=== PATIENT | female | born 1970 | race Caucasian/White ===

== ENCOUNTER 2018-03-10 11:55 | Outpatient (CLI) | payer BC, SELFPAY ==
[2018-03-10 12:00] VITALS: PULSE 62; RESP 18; TEMP 36.8; O2SAT 100
--- NOTE | 2018-03-10 12:28 | PDOC.PAIN ---
Pain Clinic Procedure Note Current Active Problems Problem Status Onset Sacroiliac joint dysfunction Acute Left Sacroiliac (SI) JOINT INJECTION KRYSTYNALOBO MARS has been referred to the [facility] for intra-articular SI joint injection. COMMENTS: I did review the note from Ms. Tabitha MARS was interviewed and the medical record reviewed. There were no medical, pharmacologic, radiographic or other structural contraindications to attempting fluoroscopically guided intra-articular SI joint injection. Risks and expected side effects as well as potential benefit of the procedure were reviewed with JERAD, and JERAD's voiced concerns addressed. The printed consent form was signed and witnessed. Standard time-out procedure was performed. JERAD was placed in the prone position on the fluoroscopy table and automated blood pressure cuff and pulse oximeter applied. The skin entry point for approaching left SI joint was identified under the most advantageous fluoroscopic view and marked. Following thorough Chlorhexadine preparation of the skin and draping and 1% lidocaine infiltration of the skin entry point and subcutaneous tissues, a 22 gauge spinal needle was placed under fluoroscopic guidance into left SI joint. Intra-articular placement was confirmed by a clear arthrogram resulting from the injection of 0.5ml Omnipaque 240 (49.5 cc Omnipaque was wasted), 1ml 1% Lidocaine, and 80mg/cc Depomedrol were injected intra-articularily with an initial reproduction of a significant component of the usual pain. HUIs vital signs were stable throughout the procedure and were as recorded in the docflowsheet by the nursing staff. Follow up plans and appointments were discussed with the JERAD. Post procedure instruction was given as documented in nursing documentation and having met discharge criteria, JERAD was discharged from the [facility]. COMMENTS: Near complete relief directly after the procedure. CC: Farnaz Kline
--- NOTE | 2018-03-10 12:34 | DI.RAD_ITS ---
SYMPTOMS/DIAGNOSIS: SACROILIAC JOINT INJECTION PAIN CLINIC SACROILIAC JOINT: Fluoroscopy Time: 20.1 sec 7.69 mGy C-arm fluoroscopy was provided for guidance with pain clinic injection. The single hard copy image shows a needle projecting over the left lower SI joint. Please see procedure note for details.
[2018-03-10 12:36] VITALS: BP 134/58; PULSE 67; RESP 17; O2SAT 100
[2018-03-10] MEDS: methylPREDNISolone ACETATE 80 MG/ML VIAL IJ (12:37)
[2018-03-10] MEDS: Omnipaque 240 MG/ML 50 ML BTL IJ (12:37)
--- NOTE | 2018-03-28 15:07 | PDOC.PAIN_ITS ---
Pain Clinic Procedure Note Current Active Problems Problem Status Onset Sacroiliac joint dysfunction Acute Left Sacroiliac (SI) JOINT INJECTION KRYSTYNALOBO MARS has been referred to the [facility] for intra- articular SI joint injection. COMMENTS: I did review the note from Ms. Tabitha MARS was interviewed and the medical record reviewed. There were no medical , pharmacologic, radiographic or other structural contraindications to attempting fluoroscopically guided intra-articular SI joint injection. Risks and expected side effects as well as potential benefit of the procedure were reviewed with JERAD, and JERAD's voiced concerns addressed. The printed consent form was signed and witnessed. Standard time-out procedure was performed. JERAD was placed in the prone position on the fluoroscopy table and automated blood pressure cuff and pulse oximeter applied. The skin entry point for approaching left SI joint was identified under the most advantageous fluoroscopic view and marked. Following thorough Chlorhexadine preparation of the skin and draping and 1% lidocaine infiltration of the skin entry point and subcutaneous tissues, a 22 gauge spinal needle was placed under fluoroscopic guidance into left SI joint. Intra-articular placement was confirmed by a clear arthrogram resulting from the injection of 0.5ml Omnipaque 240 (49.5 cc Omnipaque was wasted), 1ml 1% Lidocaine, and 80mg/cc Depomedrol were injected intra-articularily with an initial reproduction of a significant component of the usual pain. HUIs vital signs were stable throughout the procedure and were as recorded in the docflowsheet by the nursing staff. Follow up plans and appointments were discussed with the JERAD. Post procedure instruction was given as documented in nursing documentation and having met discharge criteria, JERAD was discharged from the [facility]. COMMENTS: Near complete relief directly after the procedure. CC: Farnaz Kline
== END 2018-03-10 12:15 ==
PROVIDERS: PCP Family Medicine; Visit Provider Preventive Medicine Occupational Medicine
DX: M54.5 Low back pain (principal); M53.3 Sacrococcygeal disorders, not elsewhere classified
CPT/HCPCS: 27096; 72200; J1040; Q9967

== ENCOUNTER 2018-08-08 18:45 | Outpatient (REF) | payer BC, SELFPAY ==
[2018-08-08 22:08] LABS: Bilirubin Negative (Negative); Blood Trace-intact (Negative); Clarity Clear; Glucose Negative (Negative); Ketones Negative (Negative); Leukocyte Esterase Negative (Negative); Nitrite Negative (Negative); Specific Gravity >= 1.030 (1.005-1.025); Urobilinogen 0.2 EU/dL (Up TO 0.2); pH 5.5 (5-8)
[2018-08-08 22:24] LABS: Bacteria Many HPF (Negative); C & S Indicated? Yes; Casts Negative LPF (Negative); Crystals Negative HPF (Negative); Epithelial Cells Few HPF (Negative); Mucus Negative (Negative); RBC Negative (0-2); WBC 0-2 HPF (0-5)
== END 2018-08-08 19:05 ==
LOC: NCHCN 18:45
PROVIDERS: PCP Family Medicine; Visit Provider Family Medicine
DX: R35.0 Frequency of micturition (principal)
CPT/HCPCS: 81003; 81015; 87086

== ENCOUNTER 2018-08-16 13:37 | Outpatient (CLI) | payer BC, SELFPAY ==
[2018-08-16 13:43] VITALS: BP 116/75; PULSE 72; RESP 20; TEMP 36.8; O2SAT 98
[2018-08-16] MEDS: Omnipaque 240 MG/ML 50 ML BTL IJ (14:06)
--- NOTE | 2018-08-16 14:07 | DI.RAD_ITS ---
SYMPTOMS/DIAGNOSIS: SACROILIAC JOINT DYSFUNCTION PAIN CLINIC SACROILIAC JOINT: Fluoroscopy Time: 17.4 sec 7.09 mGy Fluoroscopy was utilized by Dr. Hernández during the performance of a sacroiliac joint injection. Please refer to the procedure report for complete details.
--- NOTE | 2018-08-16 14:07 | PDOC.PAIN_ITS ---
Pain Clinic Procedure Note Current Active Problems Problem Status Onset Sacroiliac joint dysfunction Acute INTRA-ARTICULAR SI JOINT INJECTION KRYSTYNA MARS has been referred to the [facility] for intra- articular SI joint injection. COMMENTS: She had this procedure in March 2018 and had several months of excellent relief. Patient was interviewed and the medical record reviewed. There were no medical, pharmacologic, radiographic or other structural contraindications to attempting fluoroscopically guided intra-articular SI joint injection. Risks and expected side effects as well as potential benefit of the procedure were reviewed and voiced concerns addressed. The printed consent form was signed and witnessed. Standard time-out procedure was performed. Patient was placed in the prone position on the fluoroscopy table and automated blood pressure cuff and pulse oximeter applied. The skin entry point for approaching left SI joint was identified under the most advantageous fluoroscopic view and marked. Following thorough Chlorhexadine preparation of the skin and draping and 1% lidocaine infiltration of the skin entry point and subcutaneous tissues, a 22 gauge spinal needle was placed under fluoroscopic guidance into left SI joint was identified under the most advantageous fluoroscopic view and marked. Following thorough Chlorhexadine preparation of the skin and draping and 1% lidocaine infiltration of the skin entry point and subcutaneous tissues, a 22 gauge spinal needle was placed under fluoroscopic guidance into left SI joint. Intra-articular placement was confirmed by a clear arthrogram resulting from the injection of 0.25ml Omnipaque 240, 1ml 1% lidocaine, and 80mg Depomedrol were injected intra-articularily with an initial reproduction of a significant component of the usual pain. Vital signs were stable throughout the procedure and were as recorded in the docflowsheet by the nursing staff. If given, dosages of intravenous drugs for anxiolysis and analgesia were documented in MAR. Follow up plans and appointments were discussed with the patient. Post procedure instruction was given as documented in nursing documentation and having met discharge criteria, and was discharged from the [facility]. COMMENTS: If this procedure continues to be effective, it can be completed up to 3 times per 12 months. CC: Farnaz Kline
[2018-08-16] MEDS: methylPREDNISolone ACETATE 80 MG/ML VIAL IM (14:15)
[2018-08-16 14:16] VITALS: BP 133/77; PULSE 75; RESP 20; O2SAT 100
== END 2018-08-16 13:57 ==
PROVIDERS: PCP Family Medicine; Visit Provider Preventive Medicine Occupational Medicine
DX: M54.5 Low back pain (principal); M53.3 Sacrococcygeal disorders, not elsewhere classified
CPT/HCPCS: 27096; 72200; J1040; Q9967

== ENCOUNTER 2018-08-23 00:17 | Outpatient (CLI) | payer BC, SELFPAY ==
--- NOTE | 2018-08-23 16:22 | DI.MAMMO_ITS ---
SYMPTOMS/DIAGNOSIS: SCREENING, Z12.31 MAMMOGRAM: Mammograms were interpreted according to the usual protocol including computer analysis with CAD system, tomosynthesis and C view imaging. Comparison with prior examinations. Breast density B. No suspicious masses or microcalcifications are seen. There is increased asymmetric dense tissue in the upper left breast seen on the mediolateral oblique view. This may represent normal fibroglandular tissue but a spot compression is recommended. Ultrasound may be indicated at that time. IMPRESSION: Additional views of the left breast as described above. Category O. MQSA ASSESSMENT OF FINDINGS: Incomplete: Needs additional imaging evaluation. Category 0. Patient will receive a letter notifying them of these results. BI-RADS category B. There are scattered areas of fibroglandular density.
== END 2018-08-23 00:37 ==
PROVIDERS: PCP Family Medicine; Visit Provider Family Medicine
DX: Z12.31 Encounter for screening mammogram for malignant neoplasm of breast (principal); R92.8 Other abnormal and inconclusive findings on diagnostic imaging of breast
CPT/HCPCS: 77063; 77067

== ENCOUNTER 2018-09-01 00:56 | Outpatient (CLI) | payer BC, SELFPAY ==
--- NOTE | 2018-09-01 10:52 | DI.MAMMO_ITS ---
SYMPTOMS/DIAGNOSIS: F/U MAMMO, INCREASED ASYMMETRIC DENSE TISSUE LT BREAST ADDITIONAL VIEW OF THE LEFT BREAST: Additional images are interpreted according to the usual protocol including tomosynthesis and 2D imaging. An MLO spot compression view of the superior left breast was performed for questioned asymmetry. No persistent abnormality or change is seen. The findings are consistent with overlying fibroglandular tissue. IMPRESSION: Category I, negative mammogram. Yearly screening mammography is recommended. Breast density Category B. MQSA ASSESSMENT OF FINDINGS: Negative. Category 1. Patient will receive a letter notifying them of these results. BI-RADS category B. There are scattered areas of fibroglandular density.
== END 2018-09-01 01:16 ==
PROVIDERS: PCP Family Medicine; Visit Provider Family Medicine
DX: Z12.31 Encounter for screening mammogram for malignant neoplasm of breast (principal); R92.8 Other abnormal and inconclusive findings on diagnostic imaging of breast; N64.59 Other signs and symptoms in breast
CPT/HCPCS: 77063; 77067

== ENCOUNTER 2018-11-07 18:52 | Outpatient (REF) | payer BC, SELFPAY ==
[2018-11-07 18:37] LABS: Bilirubin Negative (Negative); Blood Negative (Negative); Clarity Clear; Glucose Negative (Negative); Ketones Negative (Negative); Leukocyte Esterase Negative (Negative); Nitrite Negative (Negative); Specific Gravity >= 1.030 (1.005-1.025); Urobilinogen 0.2 EU/dL (Up TO 0.2); pH 5.5 (5-8)
== END 2018-11-07 19:12 ==
LOC: NCHCN 18:52
PROVIDERS: PCP Family Medicine; Visit Provider Family Medicine
DX: R32 Unspecified urinary incontinence (principal)
CPT/HCPCS: 81003

== ENCOUNTER 2018-12-19 09:00 | Day surgery (SDC) | payer BC, SELFPAY ==
--- NOTE | 2018-12-19 06:47 | COLE_ITS ---
Date of service: 12/19/18 Time of Service: 10:43 Colonoscopy Report Date of procedure: 12/19/18 Pre-op diagnosis general: Colon Cancer Screening Post-op diagnosis procedure note: same Procedure: Colonoscopy Surgeon: Rand Rodírguez Anesthesia proc note operative: other (General/ ASA 2/Elsa Bass, ARIELA ) Estimated blood loss (mL): 0 Pathology: none sent Complications: None Disposition: same day Indications: Mrs. Taylor is a pleasant 48 year old female seen in the office for a screening colonoscopy. Risks, benefits and complications have been reviewed. Complications include but are not limited to bleeding, pain, pe rforation, missed small lesion/polyp, sore throat, aspiration and adverse reaction to the medications. Questions were entertained and answered to their satisfaction and they wished to proceed. No guarantees were given or implied. Prep: Miralax/Dulcolax Procedure Start Time: :43 Procedure End Time: 11:01 Retraction Time: 13 minutes Findings: Normal colon Procedure Description: After informed consent was obtained the patient was taken to the procedure room and placed in a left decubitous position. Monitors were applied and a time out was done. The patients name, date of , procedure, allergies to medications and metal in their body was reviewed. The patient was then sedated. Once sedated and comfortable a rectal exam was done. External exam was normal. Internal exam revealed a normal sphincter tone and no palpable masses. The scope was then introduced and retro-flexed. No internal hemorrhoids were identified. The scope was then advanced to the cecum without difficulty. The TI and appendiceal orifice were identified. The prep was good. The scope was then slowly retracted over 13 minutes back into the rectum. There were no polyps or diverticula noted. The scope was removed and the patient was woken up and taken back to Same day surgery in stable condition. The patient tolerated the procedure well and there were no immediate complications. Follow up: The patient should follow up in 10 years unless they develop changes in bowel habits or other new gastrointestinal complaints.
--- NOTE | 2018-12-19 06:47 | W.PM.DSUDISC ---
Discharge Plan Disposition Patient Disposition: HOME Condition: Good Discharge Details Reason For Visit: Colonoscopy Attending Provider: Rand Rodríguez Primary Care Provider: Farnaz Kline Home Meds and New Rx's Prescriptions: Continued valacyclovir [Valtrex] 1,000 MG tablet 1,000 mg PO DAILY RF: 0 metronidazole 45 GM cream 45 gm Topical BID RF: 0 prochlorperazine maleate 5 MG tablet 5 mg PO TID PRNRF: 0 naproxen sodium [Aleve] 220 MG capsule 220 mg PO DAILY PRNRF: 0 sumatriptan succinate [Imitrex] 50 MG tablet 100 mg PO PRN PRNRF: 0 spironolactone 25 MG tablet 25 mg PO DAILY RF: 0 Discontinued polyethylene glycol 3350 17 gram/dose powder 238 g PO ONCE Qty: 238 RF: 0 bisacodyl [Dulcolax (bisacodyl)] 5 mg tablet,delayed release (DR/EC) 5 mg PO ONCE Qty: 4 RF: 0 Discharge Instructions Instructions: Colonoscopy (DC) Additional Instructions: Findings: Normal colonoscopy Follow up: 10 years Please call if you develop: fevers >101.5 Nausea or Vomiting Abdominal pain that is not transient DAY SURGERY UNIT POST COLONOSCOPY INSTRUCTIONS 1. Because there will be medication in your system for the next 24 hours, you may feel a little sleepy. Your coordination will be affected. Therefore: a. Do not drive or operate dangerous equipment for 24 hours. b. Do not drink alcohol beverages for 24 hours (not even beer). c. Plan to go home and rest for the day. 2. Generally there are no restrictions on your activity after a day or so has gone by, but you may feel a bit fatigued for a few days. 3 After you arrive home you may have a light meal and return to a normal diet as you can tolerate it without feeling sick to your stomach. 4. After surgery, you may feel pain or discomfort. This should be only transient, but if it persists please contact your doctor. 5. If there are any questions regarding the findings of your procedure, please feel free to contact your doctor. 6. If you are unable to contact your doctor with a problem, contact the hospital at [phone]. 7. Continue all your regular medications unless directed otherwise. I understand the above instructions and have no questions. Signature of Patient or Responsible Adult Escort Date/Time Name of Responsible Adult Escort Signature of Nurse Date/Time Activity:: Activity as Tolerated Diet:: As Tolerated Discharge Orders Discharge Orders: Discharge Order (Routine); Ordered 12/19/18 Ordered By: Rand Rodríguez DS: Diagnosis Discharge Diagnosis (1) S/P colonoscopy: Status: Acute
[2018-12-19 09:15] VITALS: BP 123/73; PULSE 72; RESP 16; TEMP 37; O2SAT 99
[2018-12-19] MEDS: Lactated Ringers 1,000 ML 80 ML IV (09:23)
[2018-12-19 11:45] VITALS: BP 134/62; PULSE 48; RESP 16; TEMP 35.9; O2SAT 99
== END 2018-12-19 11:53 | disposition home or self-care (01) ==
LOC: SUR 09:00
PROVIDERS: PCP Family Medicine; Visit Provider Surgery
PROC: 0DJD8ZZ Inspection of Lower Intestinal Tract, Via Natural or Artificial Opening Endoscopic (ICD-10-PCS; CPT 45378; principal; 2018-12-19 10:00)
DX: Z12.11 Encounter for screening for malignant neoplasm of colon (principal)
CPT/HCPCS: 45378

== ENCOUNTER 2019-04-19 11:10 | Outpatient (CLI) | payer BC, SELFPAY ==
--- NOTE | 2019-04-19 15:00 | DI.RAD_ITS ---
EXAM: XR RIBS RT W PA AND LAT CHEST INDICATION: RIB PAIN RT SIDED, R07.81, PAIN LOWER RT RIB CAGE. COMPARISON: ABD FLAT UPRIGHT PA CHEST from 03/11/2015 TECHNIQUE: 2D digital imaging was performed. FINDINGS: The heart size is normal. The lungs are clear. No pneumothorax is seen. Two views of the ribs wer e performed. No fracture or gross destructive bony lesion is seen. IMPRESSION: Negative chest and right ribs.
== END 2019-04-19 11:30 ==
PROVIDERS: PCP Family Medicine; Visit Provider Family Medicine
DX: R07.81 Pleurodynia (principal)
CPT/HCPCS: 71046; 71100

== ENCOUNTER 2019-05-11 02:56 | Outpatient (CLI) | payer BC, SELFPAY ==
--- NOTE | 2019-05-11 15:45 | DI.US_ITS ---
EXAM: US SOFT TISS ABD WALL/LOW BACK CLINICAL HISTORY: RIB PAIN, RT SIDED R07.81, PAIN AND PALPABLE LUMP OVER RT LATERAL RIB CAGE TECHNIQUE: Ultrasound performed using standard protocol. COMPARISON: PELVIS TRANSVAG from 07/12/2017 FINDINGS: Soft tissue ultrasound was performed to evaluate question of palpable abnormality over the right late ral thoracoabdominal junction. No mass identified. If there is a high clinical suspicion of a mass additional evaluation with CT or MRI may be considered. IMPRESSION:
== END 2019-05-11 03:16 ==
PROVIDERS: PCP Family Medicine; Visit Provider Family Medicine
DX: R07.81 Pleurodynia (principal); R22.2 Localized swelling, mass and lump, trunk
CPT/HCPCS: 76705

== ENCOUNTER 2019-05-11 12:24 | Outpatient (CLI) | payer BC, SELFPAY ==
--- NOTE | 2019-05-11 06:00 | DI.RAD_ITS ---
EXAM: XR PAIN CLINIC SACRIOILIAC 2V CLINICAL HISTORY: Dx: Sacroiliac Joint Dysfunction TECHNIQUE: C-arm fluoroscopy utilized by Dr. Pollard during SI joint injection. COMPARISON: No exams were available for comparison FINDINGS: Hard copy shows needle overlying the SI joint, not marked for laterality. FLUORO TIME: 23.7 seconds IMPRESSION:
--- NOTE | 2019-05-11 12:27 | PDOC.PAIN_ITS ---
Pain Clinic Procedure Note Procedure Note Procedure Note: INTRA-ARTICULAR SI JOINT INJECTION Date of Service: May 11, 2019 Patient: KRYSTYNA DAVIS Provider: Marcos Pollard MD COMMENTS: previously responded well to SI joint injections. Pre-operative diagnosis: disorder of sacrum Post-operative diagnosis: same as above KRYSTYNA DAVIS has been referred to the [facility] for intra- articular SI joint injection. Ms Davis was interviewed and the medical record reviewed. There were no medical, pharmacologic, radiographic or other structural contraindications to attempting fluoroscopically guided intra-articular SI joint injection. Risks and expected side effects as well as potential benefit of the procedure were reviewed with KRYSTYNA , and her voiced concerns were addressed. The printed consent form was signed and witnessed. Standard time-out procedure was performed. KRYSTYNA was placed in the prone position on the fluoroscopy table and automated blood pressure cuff and pulse oximeter applied. The skin entry point for approaching the left sacroiliac joint was identified under the most advantageous fluoroscopic view and marked. Following thorough Chlorhexadine preparation of the skin and draping and 1% lidocaine infiltration of the skin entry point and subcutaneous tissues, a 22 gauge spinal needle was placed under fluoroscopic guidance into the left sacroiliac joint. Intra-articular placement was confirmed by a clear arthrogram resulting from the injection of 0.25ml Omnipaque 240. 1 ml 1% Lidocaine and 80mg Depomedrol was injected intra- articularily with an initial reproduction of a significant component of the usual pain. The needle was flushed with 0.5 cc of 1% Lidocaine and removed without difficulty. (49 cc of Omnipaque was wasted) KRYSTYNA lyons vital signs were stable throughout the procedure and were as recorded in the docflowsheet by the nursing staff. If given, dosages of intravenous drugs for anxiolysis and analgesia were documented in MAR. Follow up plans and appointments were discussed with the KRYSTYNA . Post procedure instruction was given as documented in nursing documentation and having met discharge criteria, KRYSTYNA was discharged from the [facility]. COMMENTS: No complications. F/U with Stefania Ramsey on prn basis. I personally performed this entire procedure. Marcos Pollard MD ABPN-subspecialty board certification in Pain Medicine Attending Physician-Pain Management
[2019-05-11 12:28] VITALS: BP 112/55; PULSE 82; RESP 16; TEMP 36.8; O2SAT 99
[2019-05-11 13:08] VITALS: BP 104/60; PULSE 71; RESP 16; O2SAT 100
[2019-05-11] MEDS: Omnipaque 240 MG/ML 50 ML BTL IJ (13:09)
[2019-05-11] MEDS: methylPREDNISolone ACETATE 80 MG/ML VIAL IJ (13:11)
== END 2019-05-11 12:44 ==
PROVIDERS: PCP Family Medicine; Visit Provider Internal Medicine
DX: M54.5 Low back pain (principal); M53.3 Sacrococcygeal disorders, not elsewhere classified
CPT/HCPCS: 27096; 72200; J1040; Q9967

== ENCOUNTER 2019-08-09 10:08 | Outpatient (CLI) | payer BC, SELFPAY ==
[2019-08-09 10:39] VITALS: BP 101/68; PULSE 50; RESP 16; TEMP 37.1; O2SAT 97
--- NOTE | 2019-08-09 10:39 | PDOC.PAIN_ITS ---
Pain Clinic Procedure Note Procedure Note Procedure Note: INTRA-ARTICULAR SI JOINT INJECTION KRYSTYNA MARS has been referred to the [facility] for intra- articular SI joint injection. pre-operative diagnosis: disorder of sacrum post-operative diagnosis: same as above COMMENTS: patient has received excellent pain relief from prior left SI joint injections, she has since developed right sided symptoms and was evaluated by Ms Lu in our pain clinic who recommended a trial of right SI joint injection. Patient was interviewed and the medical record reviewed. There were no medical, pharmacologic, radiographic or other structural contraindications to attempting fluoroscopically guided intra-articular SI joint injection. Risks and expected side effects as well as potential benefit of the procedure were reviewed and voiced concerns addressed. The printed consent form was signed and witnessed. Standard time-out procedure was performed. Patient was placed in the prone position on the fluoroscopy table and automated blood pressure cuff and pulse oximeter applied. The skin entry point for approaching right SI joints was identified under the most advantageous fluoroscopic view and marked. Following thorough Chlorhexadine preparation of the skin and draping and 1% lidocaine infiltration of the skin entry point and subcutaneous tissues, a 22 gauge spinal needle was placed under fluoroscopic guidance into right SI joints was identified under the most advantageous fluoroscopic view and marked. Following thorough Chlorhexadine preparation of the skin and draping and 1% lidocaine infiltration of the skin entry point and subcutaneous tissues, a 22 gauge 3.5'' spinal needle was placed under fluoroscopic guidance into right SI joint. Intra-articular placement was confirmed by a clear arthrogram resulting from the injection of 0.25ml Omnipaque 240, 1ml 1% lidocaine, and 40mg Depomedrol were injected intra-articularily with an initial reproduction of a significant component of the usual pain. Vital signs were stable throughout the procedure and were as recorded in the docflowsheet by the nursing staff. Follow up plans and appointments were discussed with the patient. Post procedure instruction was given as documented in nursing documentation and having met discharge criteria, and was discharged from the [facility]. COMMENTS: initially SI joint visualized using 5 degree cephalad tilt and 10 degree contralateral oblique, however, needle was difficult to enter SI joint, then an ipsilateral oblique of 7 degrees with same degree of cephalad tilt allowed for medial (posterior) aspect of right SI joint and needle entered joint space without issue. patient reported usual reproduction of her right sided low back pain as medicine was injected. I performed the entire procedure. Marcos Pollard Pain Management CC: Farnaz Kline
--- NOTE | 2019-08-09 11:08 | DI.RAD_ITS ---
EXAM: XR PAIN CLINIC SACRIOILIAC 2V CLINICAL HISTORY: Dx: Sacroiliac Joint Dysfunction. SACROILIAC JOINT INJECTION TECHNIQUE: Realtime digital imaging was performed. CONTRAST MATERIAL: Water soluble contrast was administered. COMPARISON: No exams were available for comparison FINDINGS: Fluoroscopy was utilized by Dr. Pollard during the performance of a right sacroiliac joint injection. Ple ase refer to the procedure report for complete details. Fluoro time: 44.9 seconds
[2019-08-09 11:12] VITALS: BP 109/80; PULSE 51; RESP 19; O2SAT 100
[2019-08-09] MEDS: Omnipaque 240 MG/ML 50 ML BTL IJ (11:13)
[2019-08-09] MEDS: methylPREDNISolone ACETATE 40 MG/ML VIAL IJ (11:14)
== END 2019-08-09 10:28 ==
PROVIDERS: PCP Family Medicine; Visit Provider Internal Medicine
DX: M54.5 Low back pain (principal); M53.3 Sacrococcygeal disorders, not elsewhere classified
CPT/HCPCS: 27096; 72200; J1030; Q9967

== ENCOUNTER 2019-09-12 00:49 | Outpatient (CLI) | payer BC, SELFPAY ==
--- NOTE | 2019-09-12 | DI.MAMMO_ITS ---
EXAM: MAMMO SCREENING CLINICAL HISTORY: SCREENING, Z12.31 TECHNIQUE: Mammograms were interpreted according to the usual protocol including computer analysis w ith CAD system, tomosynthesis and C-view imaging. COMPARISON: 2010 through 2018 FINDINGS: The breasts are composed of scattered fibroglandular densities, Breast Density category B. No suspicious masses or suspicious microcalcifications are seen. No skin thickening or abnormal axillary lymph nodes are seen. There has been no significant change from prior exams. IMPRESSION: BI-RADS category 1, yearly screening mammography is recommended. Breast density category B, scattered fibroglandular densities.
== END 2019-09-12 01:09 ==
PROVIDERS: PCP Family Medicine; Visit Provider Family Medicine
DX: Z12.31 Encounter for screening mammogram for malignant neoplasm of breast (principal)
CPT/HCPCS: 77063; 77067

== ENCOUNTER 2020-01-12 18:29 | Outpatient (REF) | payer BC, SELFPAY ==
[2020-01-12 18:08] LABS: Bilirubin Negative (Negative); Blood Small (Negative); Clarity Cloudy (Clear); Glucose Negative (Negative); Ketones Trace mg/dL (Negative); Leukocyte Esterase Small (Negative); Nitrite Negative (Negative); Specific Gravity >= 1.030 (1.005-1.025); Urobilinogen 0.2 EU/dL (Up TO 0.2)
[2020-01-12 20:23] LABS: Bacteria Many HPF (Negative); C & S Indicated? Yes; Casts Negative LPF (Negative); Crystals Negative HPF (Negative); Epithelial Cells Few HPF (Negative); Mucus Negative (Negative); Other Cells Negative (Negative); WBC 20-50 HPF (0-5)
== END 2020-01-12 18:49 ==
LOC: NCHCN 18:29
PROVIDERS: PCP Family Medicine; Visit Provider Family Medicine
DX: R30.0 Dysuria (principal)
CPT/HCPCS: 87077; 81003; 81015; 87086; 87186

== ENCOUNTER 2020-01-24 21:35 | Outpatient (REF) | payer BC, SELFPAY ==
[2020-01-24 20:53] LABS: Bilirubin Negative (Negative); Blood Negative (Negative); Clarity Clear (Clear); Glucose Negative (Negative); Ketones Negative (Negative); Leukocyte Esterase Negative (Negative); Nitrite Negative (Negative); Specific Gravity 1.025 (1.005-1.025); Urobilinogen 0.2 EU/dL (Up TO 0.2)
== END 2020-01-24 21:55 ==
LOC: NCHCN 21:35
PROVIDERS: Family Medicine; PCP Family Medicine; Visit Provider Family Medicine
DX: N39.0 Urinary tract infection, site not specified (principal); R30.0 Dysuria
CPT/HCPCS: 81003; 87086

== ENCOUNTER 2020-04-08 18:28 | Outpatient (REF) | payer BC, SELFPAY ==
[2020-04-10 15:15] LABS: Chlamydia Result Negative (Negative); GC Result Negative (Negative)
== END 2020-04-08 18:48 ==
LOC: NCHCN 18:28
PROVIDERS: PCP Family Medicine; Visit Provider Family Medicine
DX: R30.0 Dysuria (principal)
CPT/HCPCS: 87491; 87591; 87086

== ENCOUNTER 2020-08-28 21:05 | Outpatient (REF) | payer BC, SELFPAY ==
[2020-08-28 16:15] LABS: Hemoglobin A1C 5.7 % (<5.7)
== END 2020-08-28 21:06 | disposition home or self-care (01) ==
LOC: NCHCN 21:05
PROVIDERS: PCP Family Medicine; Visit Provider Family Medicine
DX: Z13.1 Encounter for screening for diabetes mellitus (principal)
CPT/HCPCS: 82947; 83036

== ENCOUNTER 2020-09-16 01:04 | Outpatient (CLI) | payer BC, SELFPAY ==
--- NOTE | 2020-09-16 | DI.MAMMO_ITS ---
EXAM: MG MAMMO SCREENING CLINICAL HISTORY: SCREENING, Z12.31. TECHNIQUE: Bilateral full field digital CC and MLO mammographic images were obtained with 3D tomosyn thesis and utilizing computer aided detection (CAD). COMPARISON: Prior mammograms dating back to 2010, the most recent being September 2019. FINDINGS: There are no spiculated masses nor malignant appearing microcalcification groups. Asymmetric density medially in the right breast is unchanged from prior studies. There is no significant architectural distortion nor skin thickening-retraction. IMPRESSION: Stable benign findings. No radiographic evidence of malignancy. BI-RADS Category 2 - Benign Findings Breast Density - Category B - Scattered areas of fibroglandular density Breast density Category C or D implies that the patient has dense breast tissue. Dense breast tissue can make it harder to find cancer on a mammogram. Dense breast tissue is also associated with an incr eased risk of breast cancer. This information about the result of the mammogram report was provided to the patient to raise their awareness. Use this report when you speak with the patient about their risks for breast cancer, which includes their family history. At that time, you may recommend additional screening tests (Ultrasoun d or MRI) as these tests may add significant information. A negative radiographic report should not delay biopsy if a dominant or clinically suspicious mass is present. Up to ten percent of cancers are not identified on mammography. A negative report may reinforce clinical impression. Adenosis and dense breasts may obscure an underlying neoplasm. False positive reports average 6 to 10%. Patient will receive a letter notifying them of these results.
== END 2020-09-16 01:24 ==
PROVIDERS: PCP Family Medicine; Visit Provider Family Medicine
DX: Z12.31 Encounter for screening mammogram for malignant neoplasm of breast (principal)
CPT/HCPCS: 77063; 77067

== ENCOUNTER 2020-10-22 23:23 | Outpatient (REF) | payer BC, SELFPAY | END 2020-10-22 23:24 | disposition home or self-care (01) | LOC: NCHCN 23:23 | PROVIDERS: PCP Family Medicine; Visit Provider Family Medicine | DX: N39.0 Urinary tract infection, site not specified (principal) | CPT/HCPCS: 87086 ==

== ENCOUNTER 2021-03-11 15:10 | Outpatient (REF) | payer BC, SELFPAY ==
[2021-03-11 19:09] LABS: Hemoglobin A1C 5.6 % (<5.7)
[2021-03-11 19:19] LABS: Anion Gap 6.4 mmol/L (3-11); BUN 16 mg/dL (7-18); CO2 28.6 mmol/L (21.0-32.0); CREATININE 0.8 mg/dL (0.55-1.02); Chloride 107 mmol/L (98-107); Glucose 78 mg/dL (74-106); Potassium 4.4 mmol/L (3.5-5.1); Sodium 142 mmol/L (136-145)
== END 2021-03-11 15:11 | disposition home or self-care (01) ==
LOC: NCHCN 15:10
PROVIDERS: PCP Family Medicine; Visit Provider Family Medicine
DX: R73.03 Prediabetes (principal)
CPT/HCPCS: 80048; 83036

== ENCOUNTER 2021-08-08 15:22 | Outpatient (REF) | payer BC, SELFPAY ==
[2021-08-11 13:59] LABS: Chlamydia Result Negative (Negative); GC Result Negative (Negative)
== END 2021-08-08 15:23 | disposition home or self-care (01) ==
LOC: LBN 15:22
PROVIDERS: PCP Family Medicine; Visit Provider Physician Assistant Medical
DX: L29.2 Pruritus vulvae (principal); N89.8 Other specified noninflammatory disorders of vagina; R30.0 Dysuria
CPT/HCPCS: 87077; 87491; 87591; 87086; 87186; 87480; 87510; 87660

== ENCOUNTER 2021-09-03 01:20 | Outpatient (CLI) | payer BC, SELFPAY ==
[2021-09-03 12:07] LABS: Source Nasal/Nares
[2021-09-03 14:31] LABS: COVID-19 PCR Negative (Negative)
--- NOTE | 2021-09-04 19:50 | W.PM.HP.N ---
History of Present Illness History of Present Illness Chief Complaint: Symptomatic right bunion and hammertoe deformities. Narrative: Progressive deformities intrfering with shoe gear, work and daily activities. Non-surgical treatments have failed to provide adequate relief of symptoms. 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 denies this states she does however had cold sores Hip joint pain Hx of cold sores Hx of ovarian cyst Migraines Pain of both breasts Right shoulder pain Rosacea Sacroiliac joint pain Sciatica Urinary frequency Varicose veins of both lower extremities Surgical History Ligation of fallopian tube (09/15/17) Bilateral salpingectomy - risk reduction surgery. Oophrectomy, Left (09/15/17) L ovarian cysts. Family History Other Diabetes Heart disease Social History Smoking/Tobacco Use Status: Never Smoking risk assessment performed?: Yes Alcohol Intake: current Alcohol Intake frequency: holidays/special occasions only Drug use: Never Substance use type: does not use Do you feel safe at home: Yes Do you feel safe in your relationship?: Yes Meds Allergies and Home Medications Allergies Allergy/AdvReac Type Severity Reaction Status Date / Time codeine Allergy Severe Nausea and Verified 09/03/21 10:54 vomiting erythromycin base Allergy Severe rash, hives Verified 09/03/21 10:54 Penicillins Allergy Skin Rash Verified 09/03/21 10:54 Sulfa (Sulfonamide Allergy Skin Rash Verified 09/03/21 10:54 Antibiotics) Home Medications Medication Instructions Recorded Confirmed Type valacyclovir 1 gram tablet 1,000 mg PO DAILY tab-cap 05/14/17 09/03/21 History (Valtrex) naproxen sodium 220 mg capsule 220 mg PO DAILY PRN 02/14/18 09/03/21 History (Aleve) nadolol 40 mg tablet 40 mg PO DAILY 04/09/20 09/03/21 History sumatriptan succinate 100 mg tablet See Rx Instructions PO .COMPLEX 04/09/20 09/03/21 History spironolactone 100 mg tablet 100 mg PO DAILY 05/09/20 09/03/21 History solifenacin 10 mg tablet (Vesicare) 10 mg PO DAILY #90 tab 06/05/20 09/03/21 Rx Exam Narrative Exam Narrative: Heads Normo cephalic Eyes PERRLA Hearing is adequate Heart had RRR, no murmur, gallop or rubs Lung correa are clear Abdomen is soft, BS x 4 Peripheral pulses are -2/4, CFT < 3 sec, No edema Muscle groups are 5/5 Skeletal exam is remarkable for moderate bunion deformity right foot, hammertoes 4th and 5th digits Neuro exam WNL Impressions: HAV right Hammetoe deformites 4 and 5 right Plan: Jocelyn is being brought to the OR for surgical repair of her bunion and hammertoe deformities. She understands the risks and complications including the potential for pain, scarring, infection, over or under correction of the deformities,non-union, mal union, delayed union of the osteotomy. All questions have been answered in detail. No promises made as to the final outcome of surgery. Informed consent obtained.
== END 2021-09-03 01:21 | disposition home or self-care (01) ==
LOC: LBO 01:20
PROVIDERS: PCP Family Medicine; Visit Provider Podiatrist
DX: M53.3 Sacrococcygeal disorders, not elsewhere classified (principal); Z20.822 Contact with and (suspected) exposure to COVID-19
CPT/HCPCS: 87635

== ENCOUNTER 2021-09-05 07:10 | Day surgery (SDC) | payer BC, SELFPAY ==
[2021-09-05 07:32] VITALS: BP 129/73; PULSE 58; RESP 18; TEMP 36.4; O2SAT 99
[2021-09-05] MEDS: CLINDAMYCIN 600 MG/50 ML BAG 100 MG IVPB (08:08)
[2021-09-05] MEDS: Lactated Ringers 1,000 ML 80 ML IV (08:36)
--- NOTE | 2021-09-05 08:48 | W.ANESPRE ---
General Info Date of Service Date Performed: 09/05/21 Height: 5 ft 2 in Weight: 86.6 kg Body Mass Index (BMI): 34.9 Surgical Procedure: Operation Date: 09/05/21 08:40 Proposed Procedure Side Surgeon p Bunionectomy w/Osteotomy,Arthroplasty Rt 4,5 Toe Right Sulaiman Matilde Gagnon DPM Meds Allergies and Home Medications Allergies Allergy/AdvReac Type Severity Reaction Status Date / Time erythromycin base Allergy Severe rash, hives Verified 09/05/21 07:45 Penicillins Allergy Skin Rash Verified 09/05/21 07:45 Sulfa (Sulfonamide Allergy Skin Rash Verified 09/05/21 07:45 Antibiotics) codeine AdvReac Severe Nausea and Verified 09/05/21 07:57 vomiting Home Medication Medication Instructions Recorded valacyclovir 1 gram tablet 1,000 mg PO DAILY tab-cap 05/14/17 (Valtrex) naproxen sodium 220 mg capsule 220 mg PO DAILY PRN 02/14/18 (Aleve) nadolol 40 mg tablet 40 mg PO DAILY 04/09/20 sumatriptan succinate 100 mg tablet See Rx Instructions PO .COMPLEX 04/09/20 spironolactone 100 mg tablet 100 mg PO DAILY 05/09/20 solifenacin 10 mg tablet (Vesicare) 10 mg PO DAILY #90 tab 06/05/20 biotin 10,000 mcg capsule 10,000 mcg PO DAILY 09/05/21 magnesium tab PO DAILY 09/05/21 riboflavin (vitamin B2) 100 mg 400 mg PO DAILY 09/05/21 tablet (Vitamin B-2) Current Visit Medications: Current Medications Generic Name Dose Route Start Last Admin Trade Name Armen PRN Reason Stop Dose Admin Sodium Chloride 500 mls @ 0 mls/hr 09/05/21 06:00 Saline 500ml Bag IV PRN PRN As Directed Clindamycin Phosphate/Dextrose 600 mg in 50 mls @ 100 mls/hr 09/05/21 06:00 09/05/21 08:08 Cleocin In D5w IVPB 100 mls/hr PREOP ELENA Administration Ringer's Solution 1,000 mls @ 80 mls/hr 09/05/21 06:00 09/05/21 08:36 IV 10/02/21 23:59 80 mls/hr INFUSION ELENA Administration IV Miscellaneous Supplies 1 each 09/05/21 06:00 Iv Access IV 10/02/21 23:59 DIRECTED ELENA Povidone Iodine 0 ml 09/05/21 06:00 Povidone-Iodine Soln. 118 Ml Btl TP DIRECTED ELENA Sodium Chloride 0 ml 09/05/21 06:00 Normal Saline Flush 10 Ml Syr IV 10/02/21 23:59 PRN PRN Sodium Chloride 0 ml 09/05/21 06:00 Normal Saline 10 Ml Vial IJ 10/02/21 23:59 DIRECTED PRN Sterile Water 0 ml 09/05/21 06:00 Water,Injection,Sterile 10 Ml Vial IJ 10/02/21 23:59 DIRECTED PRN PFSH Active Problems Active Problems: Problem Status Onset Code Spondylosis of lumbar region without myelopathy or radiculopathy M47.816 Sacroiliac joint dysfunction M53.3 S/P colonoscopy ~12/19/18 Z98.890 Mixed stress and urge urinary incontinence N39.46 Medical History Medical History Abnormal brain MRI Acne Flushing Genital herpes Pt. denies this states she does however had cold sores Hip joint pain Hx of cold sores Hx of ovarian cyst Migraines Pain of both breasts Right shoulder pain Rosacea Sacroiliac joint pain Sciatica Urinary frequency Varicose veins of both lower extremities Medical History Comments:: pt reports anesthesia made her feel Nauseous after R ECTR 6 years ago. Has had recent surgeries with no Anesthesia effect post surgery. Surgical History Surgical History (Updated 09/05/21 @ 07:45 by Chika Hanks RN) History of carpal tunnel repair History of carpal tunnel surgery of right wrist Hx of section Ligation of fallopian tube (09/15/17) Bilateral salpingectomy - risk reduction surgery. Oophrectomy, Left (09/15/17) L ovarian cysts. Tobacco Smoking/Tobacco Use Status: Never Alcohol Alcohol Intake: current Alcohol intake frequency: holidays/special occasions only Substance Use Substance use: Never Substance use type: does not use Vital Signs and Lab Results Vital Signs Most Recent Vital Signs in EMR: Most Recent Vital Signs Temp Pulse Resp BP Pulse Ox 36.4 C L 58 L 18 129/73 99 09/05/21 07:32 09/05/21 07:32 09/05/21 07:32 09/05/21 07:32 09/05/21 07:32 Lab Results Blood Type / Crossmatch: No Data to Display Complete Blood Count: No Data to Display Complete Metabolic Panel: No Data to Display Liver Function Panel: No Data to Display Coagulation Panel: No Data to Display Cardiac Panel: No Data to Display Arterial Blood Gas: No Data to Display Venous Blood Gas: No Data to Display Pancreas Panel: No Data to Display Thyroid Panel: No Data to Display Infectious Disease: Coronavirus (COVID-19)(PCR) Negative (Negative) 09/03/21 09:52 09/03/21 Coronavirus 2019 Source Nasal/Nares 09/03/21 09:52 09/03/21 Neisseria gonorrhoeae DNA Probe Negative (Negative) 08/08/21 12:34 08/08/21 Blood Cultures: No Data to Display Toxicology Panel: No Data to Display Panel: No Data to Display Anesthesia Assessment and Plan Anesthesia History Personal History: PONV Family History: No Family History of Anesthesia Complications Exercise Tolerance Exercise Tolerance: Metabolic Equivalents>4 Pertinent Negatives Pertinent Negatives: No Symptoms of GERD, No Major Cardiovascular Symptoms or Complaints, No Major Pulmonary Symptoms or Complaints and No History of CVA/TIA Cardiac & Pulmonary Exam Cardiac Exam: Normal S1/S2 Heart Sounds Pulmonary Exam: Clear Bilateral Breath Sounds Implantable Cardiac Device Does patient have a Pacemaker or an ICD?: No Airway Exam Known Difficult Airway: No Mallampati Class: 1 Mouth Opening: Normal (> 3cm) Thyromental Distance: Greater than 3 cm Neck Range of Motion: Full ROM Neck Circumference: Normal Teeth Condition: Normal Dentition ASA Classification ASA Score: ASA 2 Emergency Case?: No NPO Status NPO Status: NPO Clears >2 hours, Solids >8 hours Status Status: Not Relevant due to Medical History and Not Per Patient Anesthesia Plan Resuscitation Status: Full Code Anesthesia Technique: General Anesthesia Airway Planned: Natural Airway Monitors Used: Standard Monitors
[2021-09-05 08:51] VITALS: BMI 34.9
[2021-09-05] MEDS: Lidocaine 1% Multi-Dose 50 ML VIAL (09:37)
[2021-09-05] MEDS: Bupivacaine 0.5% Pres-Free 30 ML VIAL (09:38)
[2021-09-05] MEDS: Dexamethasone 4 MG/ML VIAL (09:38)
--- NOTE | 2021-09-05 10:37 | W.PM.DSUDISC ---
Discharge Plan Disposition Patient Disposition: HOME Condition: Good Discharge Details Reason For Visit: Correction of bunion and hammertoes right foot Attending Provider: Sulaiman Gagnon Primary Care Provider: Farnaz Kline Home Meds and New Rx's Prescriptions: New ibuprofen 600 mg tablet 600 mg PO Q6H PRN (Reason: pain) Qty: 60 0RF hydrocodone-acetaminophen 5-325 mg tablet 1 tab PO Q6H PRN (Reason: pain) Qty: 9 0RF Continued spironolactone 100 mg tablet 100 mg PO DAILY 0RF solifenacin [Vesicare] 10 mg tablet 10 mg PO DAILY Qty: 90 3RF valacyclovir [Valtrex] 1,000 MG tablet 1,000 mg PO DAILY 0RF naproxen sodium [Aleve] 220 MG capsule 220 mg PO DAILY PRN0RF nadolol 40 mg tablet 40 mg PO DAILY 0RF sumatriptan succinate 100 mg tablet See Rx Instructions PO .COMPLEX 0RF Rx Instructions: take 1 tab at onset of headache; if no relief, may repeat 1 tab after at least 2 hrs; max = 2 tabs/24 hrs PO biotin 10,000 mcg Capsule 10,000 mcg PO DAILY 0RF magnesium Tablet PO DAILY 0RF riboflavin (vitamin B2) [Vitamin B-2] 100 mg Tablet 400 mg PO DAILY 0RF Discharge Instructions Activity:: Elevate Remove Dressings/Wound Care:: Do Not Remove Shower/Bathe:: Cover Diet:: Normal Diet Discharge Orders Discharge Orders: Discharge Order (Routine); Ordered 09/05/21 Ordered By: Sulaiman Gagnon
--- NOTE | 2021-09-05 10:41 | W.ANESPOSTOP ---
Postoperative Evaluation Date, Time and Location Date Performed: 09/05/21 Time Performed: 10:43 Patient Location: Day Surgery Unit Vital Signs Most Recent Imported Vital Signs: Most Recent Vital Signs Temp Pulse Resp BP Pulse Ox 36.4 C L 58 L 18 129/73 99 09/05/21 07:32 09/05/21 07:32 09/05/21 07:32 09/05/21 07:32 09/05/21 07:32 Most Recent Manually Entered Vital Signs: Adult Blood Pressure: 133/75 Heart Rate: 67 Respirations: 12 Oxygen Saturation (%): 98 Temperature (C): 36.3 C Pain Score (0-10 Scale): 0 Pain Score Most Recent Pain Score: Most Recent Pain Score Pain Level 0 09/05/21 07:32 Assessment Mental Status: Awake (Alert & Oriented to Patient Baseline) Airway and Respiratory Function: Patent airway with normal (patient baseline) respiratory exam Cardiovascular Function: Hemodynamically Stable Hydration Status: Adequately Hydrated Nausea & Vomiting: No Nausea or Vomiting Pain: Pt. Denies Any Pain Peripheral Nerve Block: Patient did not receive a nerve block
[2021-09-05 10:42] VITALS: BP 133/75; PULSE 68; RESP 16; TEMP 36.3; O2SAT 97
[2021-09-05 10:44] VITALS: BP 133/75; PULSE 67; RESP 12; TEMPC 36.3; O2SAT 98
--- NOTE | 2021-09-05 10:44 | ROE_ITS ---
Date of service: 09/05/21 Time of Service: 10:44 Operative Note Operative Note DATE OF PROCEDURE: 09/05/21 PRE-OP DIAGNOSIS: Hallux valgus, hammertoes 4 and 5 right foot POST-OP DIAGNOSIS: same PROCEDURE: Modified Arizmendi bunionectomy, arthroplasty fourth and fifth digits of both of the right foot SURGEON: Sulaiman Gagnon ANESTHESIA TYPE: General LMA/ETT Refer to Anesthesia Record ESTIMATED BLOOD LOSS: 1 TOURNIQUET TIME: 59 COMPLICATIONS: None Patient was transported to: same day Patient's condition: stable Indications: 50-year-old female with increasing pain associated with right bunion and hammertoe deformities now interfering with comfortable shoe gear usage, daily activities and work. Nonoperative treatments have failed to provide sufficient relief of symptoms. She understands potential risk and complications pertaining to pain, scarring, infection, ongoing discomfort with neurologic injury, over or under correction of deformities potentially requiring revisional procedures. All questions have been answered. Informed consent has been obtained. Procedure Description: Jocelyn was brought to the operative suite placed in the supine position with the right foot prepped and draped in the usual sterile podiatric fashion. Timeout was performed for safe surgery. Anesthesia being achieved the right foot was exsanguinated well-padded ankle tourniquet inflated 250 mmHg. Attention was directed to the right foot where a 5 cm incision was made medial and parallel to the EHL tendon. Incision was deepened in controlled depth fashion hemostasis being acquired with electrocautery as needed. Attention was directed to the joint capsule where a medial inverted L capsulotomy was performed. Joint capsule was reflected in the first metatarsal delivered into the wound hypertrophy along the medial and dorsal prominence of the first metatarsal head was noted. With power instrumentation the medial and dorsal hyperostosis was resected. All rough and bony edges were rasped smooth. Evaluation revealed some persistent lateral contracture of the joint as such a lateral dissection was performed consisting of a lateral capsulotomy and fibular sesamoid mobilization. At this point the hallux was sitting in a rectus position and I felt that there was no need to perform an osteotomy. The wound was copiously irrigated with normal saline a medial capsulorrhaphy was performed and the joint capsule closed with simple interrupted suture 3-0 Vicryl the subcutaneous layer was repaired with 3-0 V icryl the subcuticular layer was repaired with continuous running suture of 4-0 Monocryl attention was now directed To the right fourth and fifth toes. Midline incisions were placed centered over the proximal interphalangeal joint of each toe. The incision was deepened in controlled depth fashion with hemostasis acquired by electrocautery. Transverse tenotomy capsulotomy was performed at the PIPJ level with a #15 scalpel. The medial lateral collaterals were released. The head of the proximal phalanx was delivered into the wound. Degenerative changes of the articular surface noted hypertrophy of the heads noted. The proximal phalangeal head were resected with power instrumentation and all rough and bony edges were rasped move. Good correction of contracture was noted. Hand rasp was used to smooth all rough and bony edges. Copious irrigation was performed. The extensor tendons were shortened and repaired end-to-end with simple interrupted suture 3-0 Vicryl skin was then coapted with simple interrupted suture of 4-0 nylon 4 mg dexamethasone phosphate was infused primarily around the first MPJ Xeroform gauze fluff compression dressings were applied to the foot tourniquet was released to 59 minutes with vascularity returning immediately to all toes Jocelyn left the OR with vital signs stable vascular status intact sharp and sponge counts were correct she will be followed by myself in the office next week. Dictated with Helen naturally speaking document not reviewed for systems testing laboratory technician accuracy
[2021-09-05 11:12] VITALS: BP 118/63; PULSE 44; RESP 18; TEMP 36.7; O2SAT 100
== END 2021-09-05 11:52 | disposition home or self-care (01) ==
PROVIDERS: PCP Family Medicine; Visit Provider Podiatrist
PROC: (CPT 28292; principal; 2021-09-05 08:30)
DX: M20.11 Hallux valgus (acquired), right foot (principal); M20.41 Other hammer toe(s) (acquired), right foot
CPT/HCPCS: 28292; 28285 ×2; J0131; J1100; J1885; J2001; J2250; J2405

== ENCOUNTER 2021-09-15 15:42 | Outpatient (REF) | payer BC, SELFPAY ==
--- NOTE | 2021-09-15 15:05 | PAPFT_PTH ---
PATIENT: Jocelyn Saravia LOC: [facility]#:[id number] AGE/SX: 50/F ROOM: RE09/15/[address]: Farnaz Kline : 1970 BED: DIS: 09/15/2021 SPEC #: [id number] RECD: 09/15/21 18:17 STATUS: BERNIE REVanessa #: [id number] REFUGIO: 09/15/21 15:[address]: Farnaz Kline DEPT: [facility] Cytology RECD BY: Bea Hinton Tissues: 1 - CX/ENDOCX FOR PAP SMEARS Procedures: PAP THIN PREP/[facility] Screening HPV DNA PROBE Comments: [id number]
== END 2021-09-15 15:43 | disposition home or self-care (01) ==
LOC: NCHCN 15:42
PROVIDERS: PCP Family Medicine; Visit Provider Family Medicine
DX: Z12.4 Encounter for screening for malignant neoplasm of cervix (principal); Z11.51 Encounter for screening for human papillomavirus (HPV)
CPT/HCPCS: 88142; 87624

== ENCOUNTER 2021-10-13 01:17 | Outpatient (CLI) | payer BC, SELFPAY ==
--- NOTE | 2021-10-13 11:45 | DI.MAMMO_ITS ---
Exam(s) MAMMO SCREENING EXAM: MAMMO SCREENING CLINICAL HISTORY: SCREENING, Z12.31 TECHNIQUE: Mammograms were interpreted according to the usual protocol including computer analysis w S[employer]nik[employer] CAD system, tomosynthesis and C-view imaging. COMPARISON: 2012 through 2020 FINDINGS: The breasts are composed of scattered fibroglandular densities, Breast Density category B. No suspicious masses or suspicious microcalcifications are seen. No skin thickening or abnormal axillary lymph nodes are seen. There has been no significant change from prior exams. IMPRESSION: BI-RADS Category 1, Negative mammogram Yearly screening mammography is recommended. Breast Density - Category B, scattered fibroglandular densities. A negative radiographic report should not delay biopsy if a dominant or clinically suspicious mass is present. Up to ten percent of cancers are not identified on mammography. A negative report may reinforce clinical impression. Adenosis and dense breasts may obscure an underlying neoplasm. False positive reports average 6 to 10%. Patient will receive a letter notifying them of these results.
== END 2021-10-13 01:37 ==
PROVIDERS: PCP Family Medicine; Visit Provider Family Medicine
DX: Z12.31 Encounter for screening mammogram for malignant neoplasm of breast (principal)
CPT/HCPCS: 77063; 77067

== ENCOUNTER 2022-08-07 13:22 | Outpatient (REF) | payer BC, SELFPAY ==
[2022-08-07 19:30] LABS: HCT 42.3 % (36.0-46.0); HGB 13.9 g/dL (11.2-15.7); MCH 30.3 pg (27.0-33.0); MCHC 32.9 % (32.0-36.0); MCV 92 fL (80-95); MPV 10.3 fL (8.0-11.0); Platelet Count 295 10^3/uL (130-400); RBC 4.59 10^6/uL (3.93-5.22); RDW-SD 40.2 fL; WBC 6.99 10^3/uL (4.4-10.8)
[2022-08-07 19:50] LABS: Hemoglobin A1C 5.6 % (<5.7)
[2022-08-07 20:02] LABS: Anion Gap 7.4 mmol/L (3-11); BUN 18 mg/dL (7-18); CO2 26.6 mmol/L (21.0-32.0); CREATININE 0.6 mg/dL (0.55-1.02); Calcium 9.6 mg/dL (8.5-10.1); Calculated LDL 104 mg/dL (<100); Chloride 105 mmol/L (98-107); Cholesterol 178 mg/dL (<200); Estimated GFR 107.26 (mL/min/1.73m2); Glucose 89 mg/dL (74-106); HDL Cholesterol 63 mg/dL (40-60); Potassium 4.4 mmol/L (3.5-5.1); Sodium 139 mmol/L (136-145); TSH (W/Ref FT4) 1.89 uIU/mL (0.36-3.74); Triglyceride 57 mg/dL (<150)
[2022-08-07 20:12] LABS: C-Reactive Protein 0.13 mg/dL (0.0-0.3)
[2022-08-10 11:03] LABS: Hepatitis C Ab w Rflx HCV PCR Negative (Negative)
[2022-08-10 11:26] LABS: HIV-1/2 Ag & Ab Screen Negative (Negative)
== END 2022-08-07 13:23 | disposition home or self-care (01) ==
LOC: NCHCN 13:22
PROVIDERS: PCP Family Medicine; Visit Provider Family Medicine
DX: R73.03 Prediabetes (principal); Z13.220 Encounter for screening for lipoid disorders; Z00.00 Encounter for general adult medical examination without abnormal findings; R19.7 Diarrhea, unspecified; R11.2 Nausea with vomiting, unspecified
CPT/HCPCS: 80048; 80061; 85027; 86803; 87389; 83036; 84443; 86140

== ENCOUNTER 2022-11-04 00:37 | Outpatient (CLI) | payer BC, SELFPAY ==
--- NOTE | 2022-11-04 14:23 | DI.MAMMO_ITS ---
Exam(s) MAMMO SCREENING EXAM: MAMMO SCREENING CLINICAL HISTORY: SCREENING, Z12.31 TECHNIQUE: Bilateral full field digital CC and MLO mammographic images were obtained with 3D tomosyn thesis and utilizing computer aided detection (CAD). COMPARISON: Available for comparison. FINDINGS: Masses/Architectural Distortion: None seen. Microcalcifications: No suspicious pleomorphic-type are seen. Skin Thickening/Nipple Retraction: None. IMPRESSION: 1. No significant interval change with no specific features of malignancy noted. 2. Unless there is more urgent need, screening mammography is recommended, as per [place] [employer] guidelines. BI-RADS Category 1 - Negative Breast Density - Category B - Scattered areas of fibroglandular density Breast density category C or D implies that the patient has dense breast tissue. Dense breast tissue is very common and is not abnormal but dense breast tissue can make it harder to find cancer on a ma mmogram. Also, dense breast tissue may increase their breast cancer risk. This information about the result of the mammogram report was provided to the patient to raise their awareness. Use this report when you speak with the patient about their risks for breast cancer, which includes their family hist ory. At that time, you may recommend for more screening tests (Ultrasound or MRI) as they might be us eful based on their risk. A negative radiographic report should not delay biopsy if a dominant or clinically suspicious mass is present. Up to ten percent of cancers are not identified on mammography. A negative report may reinforce clinical impression. Adenosis and dense breasts may obscure an underlying neoplasm. False positive reports average 6 to 10%. Patient will receive a letter notifying them of these results.
== END 2022-11-04 00:57 ==
PROVIDERS: PCP Family Medicine; Visit Provider Family Medicine
DX: Z12.31 Encounter for screening mammogram for malignant neoplasm of breast (principal)
CPT/HCPCS: 77063; 77067

== ENCOUNTER → 2023-05-11 00:42 | Outpatient (CLI) | payer BC, SELFPAY ==
--- NOTE | 2023-05-11 | DI.RAD_ITS ---
Exam(s) XR HIP PELVIS ADULT BL EXAM: XR HIP PELVIS ADULT BL CLINICAL HISTORY: OSMANI HIP PAIN, M25.559, LUMBAGO WITH SCIATICA LT SIDE, M54.42. TECHNIQUE: 2D digital imaging was performed. COMPARISON: No exams were available for comparison FINDINGS: 3 views No evidence of pelvic nor hip fracture. No degenerative changes seen in the hips, including on the b ilateral additional lateral views. Sacroiliac joints appear unremarkable. Bone density normal. No osseous lesions. IMPRESSION: No significant osseous findings in the pelvis and hips. DATA REPOSITORY: RADIATION DOSE DELIVERED:
--- NOTE | 2023-05-11 | DI.RAD_ITS ---
Exam(s) XR SACROILIAC JOINTS EXAM: XR SACROILIAC JOINTS CLINICAL HISTORY: SACROILIAC JOINT PAIN OSMANI, M53.3. TECHNIQUE: 2D digital imaging was performed. COMPARISON: No exams were available for comparison FINDINGS: 3 views No sacral nor pelvic fractures identified. The sacroiliac joints appear unremarkable. No obvious ra diographic evidence of sacroiliitis nor ankylosis. Incidentally noted is some degenerative change in the facet joints of the lower 2 levels, more so on the right side. There is also mild disc space narrowing at L5-S1 level, more so on the right side. IMPRESSION: Obvious radiograph findings in the sacroiliac joints. Facet arthropathy as described above. DATA REPOSITORY: RADIATION DOSE DELIVERED:
== END ==
PROVIDERS: PCP Family Medicine; Visit Provider Family Medicine
DX: M47.818 Spondylosis without myelopathy or radiculopathy, sacral and sacrococcygeal region (principal); M48.07 Spinal stenosis, lumbosacral region
CPT/HCPCS: 73521; 72202

== ENCOUNTER → 2023-06-24 01:56 | Outpatient (CLI) | payer BC, SELFPAY ==
--- OUTSIDE RECORDS SUMMARY | 2023-06-24 01:58 | XMS_ITS | Continuity of Care Document ---
Author Name Unknown Organization [facility] Address [address] [place] [address] Care Team Providers Care Political Science Research Assistant Name Role Phone Farnaz Kline Primary Care Physician [phone] Encounter [facility] [id number] Date(s): 07/12/22 - 07/12/[address] [address] Discharge Disposition: Home or Self Care Attending Physician: Ritika Torres PA-C Admitting Physician: Ritika Torres PA-C Referring Physician: Ritika Torres PA-C Results Laboratory List Name Date Fecal Bacterial Pathogens by PCR [facility] 07/12 Most recent to oldest [Reference Range]: 1 Salmonella PCR [facility] [Negative] Negative *NA* (07/12/22 10:30 AM) Shigella/Enteroinvasive E. coli [facility] [Neg ative] Negative *NA* (07/12/22 10:30 AM) HN LAB CAMPYLOBACTER PCR [facility] [Negative] Negative *NA* (07/12/22 10:30 AM) Shiga Toxin PCR [facility] [Negative] Negative 1 *NA* (07/12/22 10:30 AM) 1Result Comment: Test performed [place] [address] Social History Social History Type Response Sex Female Patient Care team information Personnel Name: Farnaz Kline MD Address: Address: [address] [place], [place] [address]
--- NOTE | 2023-06-24 15:10 | DI.MRI_ITS ---
Exam(s) MR LUMBAR SPINE WO EXAM: MR LUMBAR SPINE WO CLINICAL HISTORY: Lumbago with sciatica, lt side, M54.42. TECHNIQUE: Multiplanar multisequence MRI of the Lumbar spine was performed. COMPARISON: CR LUMBAR SPINE COMPLETE from 10/11/2014 MR MRI - LUMBAR SPINE WO CONTRAST from 04/30/2017 CR XR SACROILIAC JOINTS from 05/11/2023 FINDINGS: Bones: The last intervertebral disc space is designated the L5/S1 level for the numbering purpose of this examination. The vertebral body heights are well maintained. Grade 1 spondylolisthesis of L4 o n L5 is noted. There are degenerative endplate signal changes seen in the lower thoracic spine and l umbar spine. Cord: The conus tip ends at the T12 level. It is of normal size and signal intensity. T12-L1: There is a mild diffuse disc bulge. No central spinal canal or neural foraminal stenosis. L1-2: There is a mild diffuse disc bulge. No central spinal canal or neural foraminal stenosis. L2-3: No disc herniations or bulges are present. No central spinal canal or neural foraminal stenosis . L3-4: No disc herniations or bulges are present. There are degenerative changes of the facets and hyp ertrophy of the ligamentum flavum.No significant central spinal canal or neural foraminal stenosis is present. L4-5: No disc herniations or bulges are present. There are degenerative changes of the facets. There is hypertrophy of the ligamentum flavum. The findings result in mild to moderate central spinal can al stenosis.No significant neural foraminal stenosis. L5-S1: No disc herniations or bulges are present. No central spinal canal or neural foraminal stenosi s. Soft tissues: The visualized SI joints and sacrum are well maintained. The paraspinal soft tissues ar e unremarkable. IMPRESSION: 1. Multilevel degenerative changes in the lumbar spine with grade 1 anterolisthesis of L4 on L5. 2. Degenerative changes seen at L4-L5. This in conjunction with the anterolisthesis causes mild-to-m oderate central spinal canal stenosis. DATA REPOSITORY:
== END ==
PROVIDERS: PCP Family Medicine; Visit Provider Family Medicine
DX: M43.16 Spondylolisthesis, lumbar region (principal); M48.061 Spinal stenosis, lumbar region without neurogenic claudication
CPT/HCPCS: 72148

== ENCOUNTER → 2023-11-10 02:00 | Outpatient (CLI) | payer BC, SELFPAY ==
--- NOTE | 2023-11-10 | DI.MAMMO_ITS ---
Exam(s) MAMMO SCREENING EXAM: MAMMO SCREENING CLINICAL HISTORY: Z12.31 Screening TECHNIQUE: Bilateral full field digital CC and MLO mammographic images were obtained with 3D tomosyn thesis and utilizing computer aided detection (CAD). COMPARISON: Available for comparison. FINDINGS: Masses/Architectural Distortion: No new or suspicious masses. No areas of architectural distortion. Microcalcifications: No suspicious pleomorphic-type are seen. Skin Thickening/Nipple Retraction: None. IMPRESSION: 1. No significant interval change with no specific features of malignancy noted. 2. Unless there is more urgent need, screening mammography is recommended, as per [employer] guidelines. BI-RADS Category 1 - Negative Breast Density - Category B - Scattered areas of fibroglandular density Breast density category C or D implies that the patient has dense breast tissue. Dense breast tissue is very common and is not abnormal but dense breast tissue can make it harder to find cancer on a ma mmogram. Also, dense breast tissue may increase their breast cancer risk. This information about the result of the mammogram report was provided to the patient to raise their awareness. Use this report when you speak with the patient about their risks for breast cancer, which includes their family hist ory. At that time, you may recommend for more screening tests (Ultrasound or MRI) as they might be us eful based on their risk. A negative radiographic report should not delay biopsy if a dominant or clinically suspicious mass is present. Up to ten percent of cancers are not identified on mammography. A negative report may reinforce clinical impression. Adenosis and dense breasts may obscure an underlying neoplasm. False positive reports average 6 to 10%. Patient will receive a letter notifying them of these results.
== END ==
PROVIDERS: PCP Family Medicine; Visit Provider Family Medicine
DX: Z12.31 Encounter for screening mammogram for malignant neoplasm of breast (principal)
CPT/HCPCS: 77063; 77067

== ENCOUNTER 2024-01-24 15:43 | Outpatient (REF) | payer BC, SELFPAY ==
--- OUTSIDE RECORDS SUMMARY | 2024-01-24 15:45 | XMS_ITS | Encounter Summary ---
[place] [address] Care Team Providers Care Duck Operator Name Role Phone Farnaz Kline MD Primary Care Provider [phone] Encounter Details Date Type Department Care Team (Latest Contact Info) Description 07/26/2023 Travel Social History Tobacco Use Types Packs/Day Years Used Date Smoking Tobacco: Never Smokeless Tobacco: Never Sex and Gender Information Value Date Recorded Sex Assigned at Not on file Gender Identity Not on file Sexual Orientation Not on file documented as of this encounter Plan of Treatment Upcoming Encounters Date Type Department Care Team (Late st Contact Info) Description 07/28/2024 3:15 PM EST Office Visit Dermatology at [address] [place] [phone] Rony Valenzuela MD [address] [facility] [place] [address] Scheduled Procedures Name Priority Associated Diagnoses Date/Ti me NERVE BLOCK, OTHER PERIPHERA L NERVE OR BRANCH (WRVU 0.75) 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
--- OUTSIDE RECORDS SUMMARY | 2024-01-24 15:45 | XMS_ITS | Encounter Summary ---
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
--- OUTSIDE RECORDS SUMMARY | 2024-01-24 15:45 | XMS_ITS | Encounter Summary ---
[place] [address] Care Team Providers Care Manager Outreach Name Role Phone Farnaz Kline MD Primary Care Provider [phone] Encounter Details Date Type Department Care Team (Late st Contact Info) Description 07/26/2023 Notes Only [facility] [place] [address] Ivania Joe Social History Tobacco Use Types Packs/Day Years Used Date Smoking Tobacco: Never Smokeless Tobacco: Never Sex and Gender Information Value Date Recorded Sex Assigned at Not on file Gender Identity Not on file Sexual Orientation Not on file documented as of this encounter Progress Notes * Ivania Joe - 07/26/2023 3:18 PM EST Outgoing fax sent on 07/26/23 in regards to Injection records from [facility] per request of Chelsy Cannon APRN. 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
--- OUTSIDE RECORDS SUMMARY | 2024-01-24 15:45 | XMS_ITS | Encounter Summary ---
[place] [address] Care Team Providers Care Slitter Scorer Name Role Phone Farnaz Kline MD Primary Care Provider [phone] Encounter Details Date Type Department Care Team (Late st Contact Info) Description 05/19/2022 Refill Dermatology at [address] [address] Priscila Johansen RN Social History Tobacco Use Types Packs/Day Years [...] 3:15 PM EST Office Visit Dermatology at [address] [address] Rony Valenzuela MD [address] [facility] DERMATOLOGY [place], [place] [id number] Scheduled Procedures Name Priority Associated Diagnoses Date/Ti me NERVE BLOCK, OTHER PERIPHERA L NERVE OR BRANCH (WRVU 0.75) 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
--- OUTSIDE RECORDS SUMMARY | 2024-01-24 15:45 | XMS_ITS | Encounter Summary ---
[place] [address] Care Team Providers Care Bone Cooking Operator Name Role Phone Farnaz Kline MD Primary Care Provider [phone] Reason for Visit * Reason Comments Back Pain Both hip pain * Consultation (Routine) - Closed Specialty Diagnoses / Procedures Referred By Libertad hickey Referred To Contact [facility] Diagnoses Low back pain with left-sided sciatica, unspecified back pain laterality, unspecified chronicity Bilateral hip pain Coccydynia Sacroiliac joint pain LBP w/bilateral hip pain/ MRI @ [facility] Farnaz Kline MD [facility] [address] [place] [address] [facility] [place] [place] [address] Referral ID Status Reason Start Date Expiration Date V isits Requested Visits Authorized [id number] Closed Consult, Test & Treat PCP Updated and/or Approved 05/05/2023 05/05/2024 1 1 Encounter Details Date Type Department Care Team (Latest Contact Info) Description 07/26/2023 9:30 AM EST Office Visit [place] [address] Chelsy Cannon APRN [facility] [place] [address] Spondylolisthesis at L4-L5 level; Chronic bilateral low back pain without sciatica Social History Tobacco Use Types Packs/Day Years Used Date Smoking Tobacco: Never Smokeless Tobacco: Never Sex and Gender Information Value Date Recorded Sex Assigned at Not on file Gender Identity Not on file Sexual Orientation Not on file documented as of this encounter Last Filed Vital Signs Vital Sign Reading Time Taken Comments Blood Pressure - - Pulse - - Temperature - - Respiratory Rate - - Oxygen Saturation - - Inhaled Oxygen Concentration - - Weight 86.2 kg (190 lb) 07/26/2023 9:51 AM EST Height 157.5 cm (5' 2) 07/26/2023 9:51 AM EST Body Mass Index 34.75 07/26/2023 9:51 AM EST documented in this encounter Patient Instructions * Patient Instructions* Chelsy Cannon APRN - 07/26/2023 9:30 AM EST Images from the original note were not included. Spondylolisthesis at L4-5 - Spondy means spine, Listhesis means slip - your L4 vertebra has shifted on tip of L5 = back pain documented in this encounter Progress Notes * Chelsy Cannon APRN - 07/26/2023 9:30 AM EST [facility] Medical Decision Making: Jocelyn Saravia is a pleasant and straightforward 52 y.o. female seen today for a chief complaint of predominantly lower back pain likely associated with a spondylolisthesis of L4-5 and associated facet arthropathy spanning L4-S1. Today, I discussed with the patient that it would not be unreasonable to move forward with some dynamic x-rays of the lumbar spine to evaluate for any instability. I will also make attempts to reach out to the [facility] pain clinic to obtain her injection records to evaluate what was effective and what was not. I currently discussed with the patient that in the absence of a consistent radicular complaint, surgical intervention was unlikely to be helpful. However, if dynamic x-rays demonstrate some instability of the spondylolisthesis, there would be more suggestion for consideration of surgical intervention to stabilize the spondylolisthesis. The patient is inagreement with the plan and I will see her back after the x-rays are performed as well as once I have received the records from [facility] pain clinic. Diagnosis: ICD-10-CM 1. Spondylolisthesis at L4-L5 level M43.16 XR Lumbar Spine AP Flexion and Extension Only 2. Chronic bilateral low back pain without sciatica M54.50 XR Lumbar Spine AP Flexion and ExtensionOnly G89.29 Plan Dynamic x-ray lumbar We will obtain injection records from [facility] follow-up with me when the above items are completed [facility] Jocelyn Saravia is a 52 y.o. female seen in referral today upon the request of Farnaz Kline forevaluation of a chief complaint of low back pain radiating to the left lower extremity. In review of the referral documentation, symptoms been present for several years. She was subsequently sent foradvanced imaging given a lack of response to SI joint injections. Today, the patient reports 7 to 8 years of progressive axial back pain. She does indicate L4-S1 is the predominant area of discomfort. The pain will refer out to the bilateral lateral hips. She does not endorse any radicular symptoms distal to the knee. She denies any numbness or tingling but does feel a vague sense of weakness to her bilateral lower extremities with prolonged standing and walking. There are no reports of altered bowel or bladder function. She does have some slight improvement with laying down. There are no symptoms of neurogenic claudication but she does have claudicatory back pain. She did physical therapy 5 to 6 years ago and has somewhat kept up with a home exercise program. She has been supplementing with naproxen as needed and more recently, has started use of turmeric. She has had, per her report, several injections at [facility] pain service without significant improvement. She has had chiropractic treatment with minimal improvement. Employment: She works for the [employer] and is very active performing quite a bit of bending, lifting, and twisting associated with her job duties ROS A ten point review of systems was completed today and, of note, pertinent positives and negatives are indicated in the HPI. reports that she has never smoked. She has never used smokeless tobacco. Conservative Treatment: Physical Therapy: Last PT course was 5 to 6 years ago and she was discharged to home exercise program Home Exercise Program: Performed as tolerated Medications: Naproxen Turmeric Other Treatments: Chiropractic treatment x 2-discontinued secondary to lack of efficacy Injections: She has had a multitude of injections at the [facility] pain clinic-I do not have the records to review Physical Examination Wt Readings from Last 1 Encounters: 07/26/23 86.2 kg (190 lb) BMI Readings from Last 1 Encounters: 07/26/23 34.75 kg/m?? Pain: 3 (past 7 days pain lvl at lowesr 3, highest 8) General: Pleasant, cooperative, Mood and affect are appropriate Posture: Upright Gait: Nonantalgic Palpation: She is mildly tender across the lumbosacral junction. There are no masses, lesions, or deformities. Skin: Intact with no stigmata of underlying disease. ROM: Limited with some increased discomfort upon extension Sensation: Grossly intact throughout all dermatomes Neuro: Strength: 5/5 throughout all muscle groups Reflexes: 2+ at the knees and the ankles Provocative Maneuvers: Facet loading Maneuvers: Positive with increased discomfort upon extension and rotation Imaging and Test Review: On the day of this encounter, I independently reviewed an MRI of the lumbar spine completed on 06/24/2023 demonstrating overall good preservation of disc height. There is a spondylolisthesis of L4-5 contributing to moderate central canal stenosis and mild bilateral foraminal stenosis. 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 2. ??Degenerative disc disease and facet arthropathy of the lower lumbar spine. 3. ??Grade 1 anterolisthesis of L4 on L5 with no dynamic instability. Thank you for letting us participate in the care of this patient. ??If you are a health care provider and have any questions regarding this report, please contact the number below. ??For patients who have questions please contact the health career and guidance counselor that requested your imaging first. ? Electronically signed by: Amalia Al MD, [facility] ([phone]), at 07/26/2023 11:58 AM Narrative 07/26/2023 11:58 AM EST EXAMINATION: XR LUMBAR SPINE AP FLEXION AND EXTENSION ONLY CLINICAL HISTORY: ??low back pain ??r/o instability of L4-5 ??spondylolisthesis (as entered by ordering provider in the order requisition) TECHNIQUE: AP, lateral flexion, lateral extension views of the lumbar spine. COMPARISON: None FINDINGS: There are apparently 6 nonrib-bearing vertebral bodies. However, for the purposes of interpretation of this study, the last formed disc space taking be L5-S1, and therefore, the T12 vertebral body is presumed to have aplastic or very hypoplastic ribs. 7 mm anterolisthesis of L4 on L5 is unchanged in flexion and extension. Disc space narrowing at L4-5 and L5-S1 is unchanged. Facet arthropathy at all levels between L3 and S1. There is no focal vertebral body height loss. Procedure Note Aamlia Al MD - 07/26/2023 EXAMINATION: XR LUMBAR SPINE AP FLEXION AND EXTENSION ONLY CLINICAL HISTORY: low back pain r/o instability of L4-5spondylolisthesis (as entered by ordering provider in the order requisition) TECHNIQUE: AP, lateral flexion, lateral extension views of the lumbarspine. COMPARISON: None FINDINGS: There are apparently 6 nonrib-bearing vertebral bodies. However, for the purposes of interpretation of this study, the last formed disc spacetaking be L5-S1, and therefore, the T12 vertebral body is presumed to have aplasticor very hypoplastic ribs. 7 mm anterolisthesis of L4 on L5 is unchanged in flexion and extension. Disc space narrowing at L4-5 and L5-S1 is unchanged. Facet arthropathy at all levels between L3 and S1. There is no focal vertebral body height loss. IMPRESSION 1. For the purposes of this study, the last well-formed disc spacestaking be L5-S1 with 5 nonrib-bearing lumbar-type vertebral bodies, and presumedaplastic versus very hypoplastic ribs at T12. 2. Degenerative disc disease and facet arthropathy of the lower lumbarspine. 3. Grade 1 anterolisthesis of L4 on L5 with no dynamic instability. Thank you for letting us participate in the care of this patient. If youare a health care provider and have any questions regarding this report,please contact the number below. For patients who have questions please contactthe health career and guidance counselor that requested your imaging first. Electronically signed by: Amalia Al MD, [facility]([phone]), at 07/26/2023 11:58 AM Chelsy Cannon APRN IMG DX ORDERABLES documented in this encounter Visit Diagnoses Diagnosis Spondylolisthesis at L4-L5 level Chronic bilateral low back pain without sciatica Spondylolisthesis at L4-L5 level Chronic bilateral low back pain without sciatica documented in this encounter Care Teams Bone Cooking Operator Relationship Specialty Start Date End Date Farnaz Kline MD [facility] [address] [place] [address] PCP - General 05/27/10 documented as of this encounter
--- OUTSIDE RECORDS SUMMARY | 2024-01-24 15:45 | XMS_ITS | Encounter Summary ---
[place] [address] Care Team Providers Care Manager Banking Name Role Phone Farnaz Kline MD Primary Care Provider [phone] Encounter Details Date Type Department Care Team (Late st Contact Info) Description 08/16/2023 Telephone [place] [phone] Ivania Joe Social History Tobacco Use Types Packs/Day Years Used Date Smoking Tobacco: Never Smokeless Tobacco: Never Sex and Gender Information Value Date Recorded Sex Assigned at Not on file Gender Identity Not on file Sexual Orientation Not on file documented as of this encounter Miscellaneous Notes * Telephone Encounter - Ivania Joe - 08/16/2023 11:05 AM EST LVM 08/16/23 in regards to rescheduling her upcoming appointment with Chelsy Cannon APRN. 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
--- OUTSIDE RECORDS SUMMARY | 2024-01-24 15:45 | XMS_ITS | Encounter Summary ---
Author Organization [facility] Address [facility] [place] [address] Care Team Providers Care Public Service Representative Name Role Phone Farnaz Kline MD Primary Care Provider Encounter Details Date Type Department Care Team (Latest Contact Info) Description 07/26/2023 10:19 AM EST - 07/26/2023 11:59 PM [facility] Encounter XRay at [address] [place] [address] Chelsy Cannon, [facility] [place] [address] Spondylolisthesis at L4-L5 level; Chronic bilateral low back pain without sciatica Discharge Disposition: Home Social History Tobacco Use Types Packs/Day Years Used Date Smoking Tobacco: Never Smokeless Tobacco: Never Sex and Gender Information Value Date Recorded Sex Assigned at Not on file Gender Identity Not on file Sexual Orientation Not on file documented as of this encounter Medications at Time of Discharge Medication Sig Dispensed Refills Start Date End Date solifenacin (VESICARE) 10 mg Tablet TK 1 T PO D 02/29/2020 SHINGRIX, PF, 50 mcg/0.5 mL Suspension for Reconstitution injection inject 0.5 milliliter intramuscularly 0 03/14/2019 SUMAtriptan (IMITREX) 100 mg Tablet Take 100 mg by mouth as needed. 0 01/25/2019 valACYclovir (VALTREX) 1 gram Tablet take 1 tablet by mouth daily for PREVENTION 0 09/23/2018 spironolactone (ALDACTONE) 100 mg tablet Take 1 tablet by mouth 2 times daily. 60 tablet 5 03/25/2012 nadoloL (Corgard) 20 mg Tablet Take 1 tablet by mouth daily. 90 tablet 3 05/19/2022 07/27/2023 naproxen (NAPROSYN) 500 mg Tablet TAKE 1 TABLET BY MOUTH TWICE DAILY NEEDED FOR MIGRAINE HEADACHE. 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 ? Electronically signed by: Amalia Al MD, [facility] ([phone]), at 07/26/2023 11:58 AM Narrative 07/26/2023 11:58 [...] focal vertebral body height loss. Procedure Note Amalia Al MD - 07/26/2023 EXAMINATION: XR LUMBAR [...] patients who have questions please contactthe health medicare specialist that requested your imaging first. Chelsy Cannon IT COMMUNICATIONS MANAGER IMG DX ORDERABLES documented in this encounter Visit Diagnoses Diagnosis Spondylolisthesis at L4-L5 level Chronic bilateral low back pain without sciatica documented in this encounter Care Teams Public Service Representative Relationship Specialty Start Date End Date Farnaz Kline MD [facility] [address] [place] [address] PCP - General 05/27/10 documented as of this encounter
--- OUTSIDE RECORDS SUMMARY | 2024-01-24 15:45 | XMS_ITS | Encounter Summary ---
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 Jocy Fonseca MD [facility] [place] [address] Unknown None Referral ID Status Reason Start Date Expiration Date V isits Requested Visits Authorized [id number] Closed Evaluate and Treat 11/08/2023 05/06/2024 12 12 Reason for Visit * Reason Comments Back Pain Lower back pain * Consultation (Routine) - Closed Specialty Diagnoses / Procedures Referred By Contac t Referred To Contact [facility] Diagnoses Spondylolisthesis at L4-L5 level Chronic bilateral low back pain without sciatica Chelsy Cannon APRN [facility] [place] [address] [facility] [place] [address] Referral ID Status Reason Start Date Expiration Date Visits Requested Visits Authorized [id number] Closed Pain Interventional Procedure 08/27/2023 08/26/2024 1 1 Encounter Details Date Type Department Care Team (Late st Contact Info) Description 11/08/2023 3:15 PM EDT Office Visit [place] [address] Jocy Fonseca MD [facility] [place] [address] Cluneal neuropathy; Chronic bilateral low back pain without sciatica; Chronic pain syndrome Social History Tobacco Use Types Packs/Day Years Used Date Smoking Tobacco: Never Smokeless Tobacco: Never Sex and Gender Information Value Date Recorded Sex Assigned at Not on file Gender Identity Not on file Sexual Orientation Not on file documented as of this encounter Last Filed Vital Signs Vital Sign Reading Time Taken Comments Blood Pressure 98/59 11/08/2023 3:06 PM EDT Pulse 55 11/08/2023 3:06 PM EDT Temperature - - Respiratory Rate - - Oxygen Saturation 98% 11/08/2023 3:06 PM EDT Inhaled Oxygen Concentration - - Weight 85.7 kg (189 lb) 11/08/2023 3:06 PM EDT Height 157.5 cm (5' 2) 11/08/2023 3:06 PM EDT Body Mass Index 34.57 11/08/2023 3:06 PM EDT documented in this encounter Progress Notes * Jocy Fonseca MD - 11/08/2023 3:15 PM EDT [facility] Initial Consultation Note Date of visit: 11/08/23 : 1970 Consulting Physician: Chelsy Cannon APRN [facility] [place] [address] Reason for consultation: low back pain Chief Complaint Patient presents with Back Pain Lower back pain History of Present Illness: Jocelyn Saravia is a 52 y.o. female with history of varicose vein, who presents for initial evaluation. The patient reports that their low back pain problems started insidiously in 2017. Pain worsened gradually. She underwent a few injections by Dr. Hernández at [facility] which were not beneficial: Left sacroiliac joint on 05/11/2019, right sacroiliac joint injection on 08/09/2019 and bilateral lumbar medial branch radiofrequency ablation procedures in 2019. She was evaluated by Chelsy Cannon APRN in August 2023 when no surgeries were recommended and patient was referred to the pain clinic for interventional pain evaluation. Pain location: Bilateral low back pain, radiating to right posterior thigh. Predominant low back pain Quality and timing of pain: aching and sharp Pain rating: intensity ranges from 3 to 9 on a 0-10 scale. Aggravating factors include: bending, walking on incline Relieving factors include: rest Denies red flags including: bowel or bladder incontinence, fever, chills, saddle anesthesia, profound motor loss, history of cancer, history of immune compromise, weight loss. Current relevant treatments include: Ibuprofen PRN Pain medications are being prescribed by PCP/OTC. Previous pain treatments included: Jocelyn Saravia hasn't been seen at a pain clinic in the past. Medications: yes PT: last 3-4 years. Psychology: no Acupuncture: yes child care center administrator: yes TENS Unit: no Injections: yes Surgery: no Diagnostic Tests: In addition to the formal radiology read, I independently reviewed the imaging and shared my interpretation with the patient. XR LUMBAR SPINE AP FLEXION AND EXTENSION ONLY 07/26/23 CLINICAL HISTORY: low back pain r/o instability of L4-5 spondylolisthesis (as entered by ordering provider in the [...] arthropathy of the lower lumbar spine. 3. Grade 1 anterolisthesis of L4 on L5 with no dynamic instability. Review of Electronic Chart: Today I have also reviewed available medical information in the patient's medical record at [facility] including relevant provider notes, laboratory work, and imaging. 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 Rosacea L71.9 Varicose veins I83.90 Past Medical History: Diagnosis Date Varicose veins 01/06/2013 Past Surgical History: Past Surgical History: Procedure Laterality Date SECTION Medications: Current Outpatient Medications: omeprazole (PriLOSEC) [address] capsule, Take 40 mg by mouth daily., Disp: , Rfl: Qsymia 7.5-46 mg ER 24 hr capsule, Take 1 capsule by mouth daily., Disp: , Rfl: nadoloL (Corgard) 20 mg tablet, Take 1 tablet by mouth daily., Disp: 90 tablet, Rfl: 3 solifenacin (VESICARE) 10 mg Tablet, TK 1 T PO D, Disp: , Rfl: SUMAtriptan (IMITREX) 100 mg Tablet, Take 100 mg by mouth as needed., Disp: , Rfl: 0 valACYclovir (VALTREX) 1 gram Tablet, take 1 tablet by mouth daily for PREVENTION, Disp: , Rfl: 0 spironolactone (ALDACTONE) 100 mg tablet, Take 1 tablet by mouth 2 times daily. (Patient taking differently: Take 100 mg by mouth daily.), Disp: 60 tablet, Rfl: 5 SHINGRIX, PF, 50 mcg/0.5 mL Suspension for Reconstitution injection, inject 0.5 milliliter intramuscularly, Disp: , Rfl: 0 Allergies: Allergies Allergen Reactions Codeine Nausea And Vomiting Sulfasalazine Hives Pcn [Penicillins] Sulfa (Sulfonamide Antibiotics) Social History: Social History Socioeconomic History Marital status: Spouse name: Not on file Number of children: Not on file Years of education: Not on file Highest education level: Not on file Occupational History Not on file Tobacco Use Smoking status: Never Smokeless tobacco: Never Vaping Use Vaping Use: Never used Substance and Sexual Activity Alcohol use: Not on file Drug use: Not on file Sexual activity: Not on file Other Topics Concern Not on file Social History Narrative Not on file Social Determinants of Health Financial Resource Strain: Not on file Food Insecurity: Not on file Transportation Needs: Not on file Physical Activity: Not on file Intimate Partner Violence: Not on file Housing Stability: Not on file History of chemical dependency treatment: denies 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 HENT: No recent hearing changes. No difficulty swallowing. Eyes: No recent vision changes. Respiratory: No cough or shortness of breath. Cardiovascular: No chest pain or syncope. GI: No diarrhea, nausea, vomiting, or constipation. : No dysuria, hesitancy, or urgency. No incontinence. Musculoskeletal: No muscle weakness. Low back pain Skin: No rashes or lesions. Neurologic: No numbness/tingling. No difficulty with balance. Psychiatric: Mood ok. No SI/HI. Heme/Lymph/Imm: No easy bleeding or brusing. BP 98/59 Pulse 55 Ht 157.5 cm (5' 2) Wt 85.7 kg (189 lb) SpO2 98% BMI 34.57 kg/m?? PHYSICAL EXAM: General: Patient is seated comfortably in NAD, well-groomed. HEENT: Head atraumatic, EOMI. Respiratory: Breathing comfortably on RA. Cardiovascular: no swelling Abdominal: non-distended Skin: No appreciable rashes or skin breakdown Psych: Appropriate affect, A&Ox3 , answers questions appropriately Musculoskeletal: Inspection - No gross appendicular or axial deformities Right more than left posterior iliac crest area tenderness to palpation Bilateral lumbar paraspinal tenderness negative with negative facet loading test Negative bilateral straight leg raise test Negative bilateral PSIS tenderness Neurologic: touch up carver - grossly intact Reflexes - 2+ and symmetric in bilateral brachioradiali, patellae, and Achilles. No ankle clonus. Motor - 5/5 in all planes of motion in both lower extremities. Sensation - Intact to light touch throughout lower extremities Gait/Station: Transitions from exam room chair to table without difficulty. 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 Basedon today examination and presentation, lumbar radiculopathy is less likely. MRI of lumbar spine demonstrates mild to moderate L4-L5 spinal canal stenosis with grade 1 anterolisthesis at L4-L5. No dynamic instability was noted on x-rays. No surgeries have been recommended at this point by spine surgery. Previous sacroiliac joint injections and lumbar medial branch radiofrequency ablation procedures done at [facility] were not beneficial. #2 chronic pain syndrome Plan: Diagnosis reviewed, treatment option addressed, and risk/benefits discussed. Self-care instructionsgiven. I am recommending a multidisciplinary treatment plan to help this patient better manage her pain. Physical Therapy: External physical therapy referral ordered. Clinical Health Psychologist to address issues of relaxation, behavioral change, coping style, and other factors important to improvement: None at this point. Self Care Recommendations: Recommend compliance to exercises taught by physical therapy. Diagnostic Studies: None at this point. Medication Management: No new medications Further procedures recommended: Patient will be scheduled for bilateral superior cluneal nerve blocks under fluoroscopy guidance. -Can consider PNS in future based on response to planned injection. Referrals: Established care with spine surgery. Release of information: Records reviewed Follow up: 4 weeks after the injections. Jocy Fonseca MD [facility] Adjunct Writing Instructor of Anesthesiology [employer] [address] [address] / [facility] CC: Chelsy Cannon, SAFETY COORDINATOR [facility] [place] [address] documented in this encounter Plan of Treatment Upcoming Encounters Date Type Department Care Team (Late st Contact Info) Description 07/28/2024 3:15 PM EST Office Visit Dermatology at [place] [address] [place] [address] Rony Valenzuela MD [address] DERMATOLOGY [place], [place] [id number] Scheduled Orders Name Type Priority Associated Diagnoses Orde r Schedule SURGICAL CASE REQUEST: NERVE BLOCK, OTHER PERIPHERAL NERVE OR BRANCH (WRVU 0.75) Procedures Routine Cluneal neuropathy Ordered: 11/08/2023 Scheduled Procedures Name Priority Associated Diagnoses Date/Ti me NERVE BLOCK, OTHER PERIPHERA L NERVE OR BRANCH (WRVU 0.75) Cluneal neuropathy Scheduled Referrals Name Type Priority Associated Diagnoses Orde r Schedule Referral to Physical Therapy Outpatient Referral Routine Cluneal neuropathy Chronic bilateral low back pain without sciatica Ordered: 11/08/2023 documented as of this encounter Visit Diagnoses Diagnosis Cluneal neuropathy Chronic 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
--- OUTSIDE RECORDS SUMMARY | 2024-01-24 15:45 | XMS_ITS | Encounter Summary ---
[place] [address] Care Team Providers Care Charge Account Identification Clerk Name Role Phone Farnaz Kline MD Primary Care Provider Encounter Details Date Type Department Care Team (Late st Contact Info) Description 07/27/2023 Refill Dermatology at [address] [phone] Brianna Holm LPN Social History Tobacco Use Types Packs/Day Years [...] EST Office Visit Dermatology at [place] [address] [place] [address] Rony Valenzuela MD [address] [facility] DERMATOLOGY [place], [place] [phone] Scheduled Procedures Name Priority Associated Diagnoses Date/Ti me NERVE BLOCK, OTHER PERIPHERA L NERVE OR BRANCH (WRVU 0.75) Cluneal neuropathy documented as of this encounter Visit Diagnoses Not on filedocumented in this encounter Care Teams Charge Account Identification Clerk Relationship Specialty Start Date End Date Farnaz Kline MD [address] [place] [address] [facility] [address] [place] [address] PCP - General 05/27/10 documented as of this encounter
--- OUTSIDE RECORDS SUMMARY | 2024-01-24 15:45 | XMS_ITS | Encounter Summary ---
[place] [address] Care Team Providers Care Hand Etcher Helper Name Role Phone Farnaz Kline MD Primary Care Provider [phone] Reason for Referral * Consultation (Routine) - Closed Specialty Diagnoses / Procedures Referred By Libertad hickey Referred To Contact Pain and Spine Center Diagnoses Spondylolisthesis at L4-L5 level Chronic bilateral low back pain without sciatica Chelsy Cannon APRN [facility] [address] [place] [address] [facility] [place] [address] Referral ID Status Reason Start Date Expiration Date Visits Requested Visits Authorized [id number] Closed Pain Interventional Procedure 08/27/2023 08/26/2024 1 1 Reason for Visit * Reason Comments Follow-up F/U to [facility] Notes Encounter Details Date Type Department Care Team (Latest Contact Info) Description 08/27/2023 9:15 AM EST Office Visit [place] [phone] Chelsy Cannon APRN [facility] [address] [place] [address] Spondylolisthesis at L4-L5 level; Chronic bilateral low back pain without sciatica Social History Tobacco Use Types Packs/Day Years Used Date Smoking Tobacco: Never Smokeless Tobacco: Never Tobacco Cessation:Counseling Given: Not Answered Sex and Gender Information Value Date Recorded [...] - - Weight 86.2 kg (190 lb) 08/27/2023 9:12 AM EST Height 157.5 cm (5' 2) 08/27/2023 9:12 AM EST Body Mass Index 34.75 08/27/2023 9:12 AM EST documented in this encounter Progress Notes * Chelsy Cannon, OIL WELL DIRECTIONAL SURVEYOR - 08/27/2023 9:15 AM EST [place] Medical Decision Making: Jocelyn Saravia is a 52 y.o. female seen today for a chief complaint of chronic axial lower back pain likely associated with a spondylolisthesis at L4-5 with additional associated facet arthropathy spanning L4-S1. Today, we reviewed her [facility] records. Unfortunately, I was unable to obtain records for what I believe she tried was MBB/RFA after the SI joint injections. Unfortunately, she has not received any significant improvement with SI joint injections nor what I suspect was an RFA procedure at [facility] back in 2019. I discussed with the patient today that it has been long enough, that it would not be unreasonable to retry the MBB RFA process spanning L4-S1 to see if this could target her axial lower back pain. She did find this process to be quite painful and she is hesitant to agree to move forward. We also briefly reviewed the option of seeing one of our pain physicians for consideration of a Sprint trial (PNS) and this seems to be more palatable to her at this point although she would like more discussion on this particular pain management strategy. At the end of our discussion today we agreed that it would be reasonable to move forward with a formal consult with one of ourpain physicians to discuss the peripheral nerve stimulator in more detail so that she can make an informed decision. I discussed with the patient today that because of the axial component of her pain, there was really not a surgical solution for her and therefore, I will defer her to pain management at this point but I am happy to see her back if needed. Diagnosis: ICD-10-CM 1. Spondylolisthesis at L4-L5 level M43.16 Referral to Pain Management 2. Chronic bilateral low back pain without sciatica M54.50 Referral to Pain Management G89.29 Plan Referral to one of our pain management physicians to discuss candidacy and option of a Sprint trial/PNS. I will defer to the pain service at this point as there is currently not a surgical option. HPI Jocelyn Saravia is a 52 y.o. female last seen by me on 07/26/2023 for evaluation of a chief complaint of low back pain likely associated with a spondylolisthesis of L4-5 and associated facet arthropathy spanning L4-S1. At the time of last visit, I recommended moving forward with dynamic lumbar x-rays to evaluate for any instability of the L4-5 spondylolisthesis. We had also discussed her response to previous injections at [facility] that did not give her any significant improvement and I recommended that we obtain those records for review. We have since received the notes from [facility] and the patient is returning to me today to discuss her options. ROS A five point review of systems was completed today and, of note, pertinent positive and negatives are indicated in the HPI. reports that she has never smoked. She has never used smokeless tobacco. Conservative Treatment: Physical Therapy: Last PT course was 5 to 6 years ago and she was discharged to home exercise program Home Exercise Program: Performed as tolerated Medications: Naproxen Turmeric Other Treatments: Chiropractic treatment x 2-discontinued secondary to lack of efficacy Injections: Left SI joint injection (05/11/2019)-[facility] - 0% Right SI joint injection (08/09/2019)-[facility] - 0% ?? RFA L3-5 in 2019 per patient report-I did not receive these records Physical Examination Wt Readings from Last 1 Encounters: 08/27/23 86.2 kg (190 lb) BMI Readings from Last 1 Encounters: 08/27/23 34.75 kg/m?? Pain: 2 (past 7 days pain lvl at lowest 2, highest 8) General: Pleasant, cooperative, Mood and affect are appropriate Posture: Upright Gait: Normal, Non-Antalgic Palpation: No palpable masses, lesions or deformities Skin: Intact with no stigmata of underlying disease. ROM: deferred Sensation: Grossly intact throughout all dermatomes Neuro: Strength: 5/5 throughout all muscle groups Reflexes: 2+ at the knees and the ankles Imaging and Test Review: On the day of this encounter, I independently reviewed dynamic x-rays of the lumbar spine were obtained on 07/26/2023 demonstrating a spondylolisthesis at L4- 5 without dynamic instability on flexion versus extension. I also independently reviewed an MRI of the lumbar spine completed on 06/24/2023 demonstrating overall good preservation of disc height. There is a spondylolisthesis of L4-5 contributing to moderate central canal stenosis and mild bilateral foraminal stenosis. CC: Farnaz Kline MD Referring Provider: Farnaz Cannon APRN 08/27/2023 [facility] documented in this encounter Plan of Treatment Upcoming Encounters Date Type Department Care Team (Late st Contact Info) Description 07/28/2024 3:15 PM EST Office Visit Dermatology at [address] [place] [phone] Rony Valenzuela MD [address] [place] [address] Scheduled Procedures Name Priority Associated Diagnoses Date/Ti me NERVE BLOCK, OTHER PERIPHERA L NERVE OR BRANCH (WRVU 0.75) Cluneal neuropathy Scheduled Referrals Name Type Priority Associated Diagnoses Order Schedule Referral to Pain Management Outpatient Referral Routine Spondylolisthesis at L4-L5 level Chronic bilateral low back pain without sciatica Ordered: 08/27/2023 documented as of this encounter Visit Diagnoses Diagnosis Spondylolisthesis at L4-L5 level Chronic bilateral low back pain without sciatica documented in this encounter Care Teams Hand Etcher Helper Relationship Specialty Start Date End Date Farnaz Kline MD [address] [place] [address] PCP - General 05/27/10 documented as of this encounter
--- OUTSIDE RECORDS SUMMARY | 2024-01-24 15:45 | XMS_ITS | Encounter Summary ---
[place] [address] Care Team Providers Care Vocational Rehab Consultant Name Role Phone Farnaz Kline MD Primary Care Provider [phone] Encounter Details Date Type Department Care Team (Late st Contact Info) Description 12/16/2023 Telephone [place] [address] Kaela Johansen Social History Tobacco Use Types Packs/Day Years Used Date Smoking Tobacco: Never Smokeless Tobacco: Never Sex and Gender Information Value Date Recorded Sex Assigned at Not on file Gender Identity Not on file Sexual Orientation Not on file documented as of this encounter Miscellaneous Notes * Telephone Encounter - Kaela Johansen - 12/16/2023 9:15 AM EDT 12/16/2023 [facility] for patient to call back and schedule injection. Left call back [phone]. documented in this encounter Plan of Treatment Upcoming Encounters Date Type Department Care Team (Late st Contact Info) Description 07/28/2024 3:15 PM EST Office Visit Dermatology at [address] [phone] Rony Valenzuela MD [address] [facility] [place] [address] Scheduled Procedures Name Priority Associated Diagnoses Date/Ti me NERVE BLOCK, OTHER PERIPHERA L NERVE OR BRANCH (WRVU 0.75) Cluneal neuropathy documented as of this encounter Visit Diagnoses Not on filedocumented in this encounter Care Teams Vocational Rehab Consultant Relationship Specialty Start Date End Date Farnaz Kline MD [address] [place] [address] PCP - General 05/27/10 documented as of this encounter
--- OUTSIDE RECORDS SUMMARY | 2024-01-24 15:45 | XMS_ITS | Encounter Summary ---
[place] [address] Care Team Providers Care Ski Topper Name Role Phone Farnaz Kline MD Primary Care Provider [phone] Reason for Referral * Consultation (Routine) - Closed Specialty Diagnoses / Procedures Referred By Libertad hickey Referred To Contact [facility] Diagnoses Low back pain with left-sided sciatica, unspecified back pain laterality, unspecified chronicity Bilateral hip pain Coccydynia Sacroiliac joint pain LBP w/bilateral hip pain/ MRI @ [facility] Farnaz Kline MD [address] [place] [address] [facility] [place] [address] Referral ID Status Reason Start Date Expiration Date V isits Requested Visits Authorized [id number] Closed Consult, Test & Treat PCP Updated and/or Approved 05/05/2023 05/05/2024 1 1 Encounter Details Date Type Department Care Team (Latest Contact Info) Description 05/11/2023 Transcribe Orders eDH Incoming Referrals [phone] Farnaz Kline MD [address] [place] [address] Low back pain with left-sided sciatica, unspecified back pain laterality, unspecified chronicity; Bilateral hip pain; Coccydynia; Sacroiliac joint pain Social History Tobacco Use Types Packs/Day Years [...] 3:15 PM EST Office Visit Dermatology at [place] [address] [place] [address] Rony Valenzuela MD [address] [place] [address] Scheduled Procedures Name Priority Associated Diagnoses Date/Ti me NERVE BLOCK, OTHER PERIPHERA L NERVE OR BRANCH (WRVU 0.75) Cluneal neuropathy Scheduled Referrals Name Type Priority Associated Diagnoses Orde r Schedule Referral to Spine Center Outpatient Referral Routine Low back pain with left-sided sciatica, unspecified back pain laterality, unspecified chronicity Bilateral hip pain Coccydynia Sacroiliac joint pain Ordered: 05/11/2023 documented as of this encounter Visit Diagnoses Diagnosis Low back pain with left-sided sciatica, unspecified back pain laterality, unspecified chronicity Bilateral hip pain Pain in joint, pelvic region and thigh Coccydynia Other disorder of coccyx Sacroiliac joint pain Disorders of sacrum documented in this encounter Care Teams Ski Topper Relationship Specialty Start Date End Date Farnaz Kline MD [facility] [address] [facility] [address] [place] [address] PCP - General 05/27/10 documented as of this encounter
--- OUTSIDE RECORDS SUMMARY | 2024-01-24 15:45 | XMS_ITS | Encounter Summary ---
Author Organization [facility] [place] [address] Care Team Providers Care Brand Development Manager Name Role Phone Farnaz Kline MD Primary Care Provider [phone] Reason for Visit * Reason Comments Annual Exam Encounter Details Date Type Department Care Team (Late st Contact Info) Description 07/27/2023 1:30 PM EST Office Visit Dermatology at [address] [address] Rony Valenzuela MD [address] [place] [address] [place] [address] Rosacea Social History Tobacco Use Types Packs/Day Years Used Date Smoking Tobacco: Never Smokeless Tobacco: Never Sex and Gender Information Value Date Recorded Sex Assigned at Not on file Gender Identity Not on file Sexual Orientation Not on file documented as of this encounter Progress Notes * Rony Valenzuela MD - 07/27/2023 1:30 PM EST Problem: 1. Follow-up rosacea 2. Utilizing spironolactone 100 mg 1 p.o. daily and nadolol 20 mg 1 p.o. daily Jocelyn follows up for a yearly check. She has been doing well. She has not had any repeat episodes of her perioral dermatitis. She notes occasionally that people will comment to her that her nose appears red. She is not noticing a more diffuse redness of the entire face. She denies ever having had hot flashes. She is otherwise happy with her level of control. Physical examination reveals a pleasant 51-year-old woman whose complexion is clear and without anysignificant erythema of the face. Assessment plan: Rosacea,, facial erythema, controlled with current therapy 1. Continue spironolactone 100 mg 1 p.o. daily. She receives this medication from Dr. Kline. 2. Continue nadolol 20 mg 1 p.o. daily dispense #90 for erythema supply with 3 refills. Blood pressure today was 120/70 3. 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
--- OUTSIDE RECORDS SUMMARY | 2024-01-24 15:45 | XMS_ITS | Encounter Summary ---
[place] [address] Care Team Providers Care Cabinet Finisher Name Role Phone Farnaz Kline MD Primary Care Provider [phone] Encounter Details Date Type Department Care Team (Latest Contact Info) Description 08/27/2023 Travel Social History Tobacco Use Types Packs/Day [...] 3:15 PM EST Office Visit Dermatology at [address] [place] [phone] Rony Valenzuela MD [address] [facility] [place] [address] Scheduled Procedures Name Priority Associated Diagnoses Date/Ti me NERVE BLOCK, OTHER PERIPHERA L NERVE OR BRANCH (WRVU 0.75) 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
--- OUTSIDE RECORDS SUMMARY | 2024-01-24 15:45 | XMS_ITS | Encounter Summary ---
[place] [address] Care Team Providers Care Mission Systems Engineer Name Role Phone Farnaz Kline MD Primary Care Provider [phone] Encounter Details Date Type Department Care Team (Latest Contact Info) Description 05/19/2022 Travel Social History Tobacco Use Types Packs/Day [...] 3:15 PM EST Office Visit Dermatology at [address] [phone] Rony Valenzuela MD [address] [facility] [place] [address] Scheduled Procedures Name Priority Associated Diagnoses Date/Ti me NERVE BLOCK, OTHER PERIPHERA L NERVE OR BRANCH (WRVU 0.75) 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
--- OUTSIDE RECORDS SUMMARY | 2024-01-24 15:45 | XMS_ITS | Clinical Summary ---
Author Organization [place] [address] Care Team Providers Care Top Flavor Attendant Name Role Phone Farnaz Kline MD Primary Care Provider [phone] Allergies Active Allergy Reactions Criticality Noted Date Comments Codeine Nausea And Vomiting High 05/19/2022 Penicillins 03/26/2011 Sulfa (Sulfonamide Antibiotics) 03/06 Sulfasalazine Hives Medium 05/02/2019 Medications Medication Sig Dispensed Refills Start Date End Date Status spironolactone (ALDACTONE) 100 mg tablet Take 1 tablet by mouth 2 times daily. 60 tablet 5 03/25/2012 Active Additional Information Patient taking differently:100 mg OralDAILY, Reported on 08/27/2023 valACYclovir (VALTREX) 1 gram Tablet take 1 tablet by mouth daily for PREVENTION 0 09/23/2018 Active SUMAtriptan (IMITREX) 100 mg Tablet Take 100 mg by mouth as needed. 0 01/25/2019 Active SHINGRIX, PF, 50 mcg/0.5 mL Suspension for Reconstitution injection inject 0.5 milliliter intramuscularly 0 03/14/2019 Active solifenacin (VESICARE) 10 mg Tablet TK 1 T PO D 02/29/2020 Active nadoloL (Corgard) 20 mg tablet Take 1 tablet by mouth daily. 90 tablet 3 07/27/2023 Active omeprazole (PriLOSEC) [address] capsule Take 40 mg by mouth daily. 09/28/2023 Active Qsymia 7.5-46 mg ER 24 hr capsule Take 1 capsule by mouth daily. 10/22/2023 Active Active Problems Problem Noted Date Diagnosed Date Varicose veins 01/06/2013 Rosacea 10/10/2012 Dermatofibroma 03/25/2012 Melasma 03/25/2012 Acne vulgaris 03/25/2011 Encounters Date Type Department Care Team Description 12/16/2023 Telephone [facility] [place] [address] Kaela Johansen Matilde 11/08/2023 3:15 PM EDT Office Visit [place] [address] Jocy Fonseca MD Cluneal neuropathy; Chronic bilateral low back pain without sciatica; Chronic pain syndrome 11/08/2023 Travel from Last 3 Months Social History Tobacco Use Types Packs/Day Years Used Date Smoking Tobacco: Never Smokeless Tobacco: Never Tobacco Cessation:Counseling Given: Not Answered Sex and Gender Information Value Date Recorded Sex Assigned at Not on file Gender Identity Not on file Sexual Orientation Not on file Last Filed Vital Signs Vital Sign Reading [...] Mass Index 34.57 11/08/2023 3:06 PM EDT Plan of Treatment Upcoming Encounters Date Type Department Care Team (Late st Contact Info) Description 07/28/2024 3:15 PM EST Office Visit Dermatology at [place] [address] [place] [phone] Rony Valenzuela MD [address] [facility] [place] [address] Scheduled Procedures Name Priority Associated Diagnoses Date/Ti me NERVE BLOCK, OTHER PERIPHERA L NERVE OR BRANCH (WRVU 0.75) Cluneal neuropathy Health Maintenance Due Date Last Done Comments CT Colonography 1968 Colonoscopy 1968 Colorectal Cancer Screening 1968 FIT DNA 1968 FIT 1968 Sigmoidoscopy (10 year) with FIT yearly 1968 Sigmoidoscopy 1968 HIV screen 1986 Hepatitis C Screening 1986 Lipid Screening 1986 Hepatitis B vaccine (0-59 yrs) (1) 12/10/1987 Tdap adult 12/10/1987 Tetanus vaccine 12/10/1987 HPV test 1998 PAP Smear 1998 Breast Cancer Share Decision Needed 2008 Breast Cancer screening 2008 Diabetes Screening (HgbA1C or Glucose) 2008 Zoster vaccine (1 of 2) 2018 Covid-19 Vaccine (1 - 2022-24 season) 2023 Advance Directive 12/10/2023 Influenza (Flu) vaccine (1 o f 1 - Influenza standard series) 03/05/2024 Care Teams Top Flavor Attendant Relationship Specialty Start Date End Date Farnaz Kline MD [address] [place], [place] [address] PCP - General 05/27/10
--- OUTSIDE RECORDS SUMMARY | 2024-01-24 15:45 | XMS_ITS | Encounter Summary ---
[place] [address] Care Team Providers Care Offset Printing Operator Name Role Phone Farnaz Kline MD Primary Care Provider [phone] Encounter Details Date Type Department Care Team (Late st Contact Info) Description 06/24/2023 Ancillary Procedure [place] [phone] Farnaz Kline MD [address] [place] [address] [facility] 1 [place] [address] Social History Tobacco Use Types Packs/Day Years [...] 3:15 PM EST Office Visit Dermatology at [place] [address] [facility] [place] [address] Rony Valenzuela MD [address] [facility] DERMATOLOGY [place], [place] [phone] Scheduled Procedures Name Priority Associated Diagnoses Date/Ti me NERVE BLOCK, OTHER PERIPHERA L NERVE OR BRANCH (WRVU 0.75) Cluneal neuropathy documented as of this encounter Procedures Procedure Name Priority Date/Time Associated Diagnosis Comments FILM LIBRARY STORAGE ONLY MR SPINE Routine 06/24/2023 12:00 AM EST documented in this encounter Results * Film Library- Storage Only MR Spine (06/24/2023 12:00 AM EST) Narrative [facility] - 06/29/2023 12:09 PM EST This exam is auto-finalizing. It's purpose is for storage only. Farnaz Kline MD G FILM LIBRARY ORD ERABLES Performing Organization Address City/State/[facility] Co de Phone Number [place], [place] documented in this encounter Visit Diagnoses Not on filedocumented in this encounter Care Teams Offset Printing Operator Relationship Specialty Start Date End Date Farnaz Kline MD [facility] [address] [place] [address] PCP - General 05/27/10 documented as of this encounter
--- OUTSIDE RECORDS SUMMARY | 2024-01-24 15:45 | XMS_ITS | Encounter Summary ---
Author Organization [facility] [place] [address] Care Team Providers Care Insert Operator Name Role Phone Farnaz Kline MD Primary Care Provider [phone] Encounter Details Date Type Department Care Team (Late st Contact Info) Description 08/05/2023 Notes Only [place] [phone] Ivania Joe Social History Tobacco Use Types Packs/Day Years Used Date Smoking Tobacco: Never Smokeless Tobacco: Never Sex and Gender Information Value Date Recorded Sex Assigned at Not on file Gender Identity Not on file Sexual Orientation Not on file documented as of this encounter Progress Notes * Ivania Joe - 08/05/2023 9:56 AM EST Outgoing call on 08/06/23 to [facility] Medical records with no answer, just voicemail. I have sent anotherfax request asking for Injection notes, marked Urgent/Stat so that we can schedule a follow up withthe patient in clinic with Chelsy Cannon APRN. See previous note . documented in this encounter Plan of Treatment Upcoming Encounters Date Type Department Care Team (Late st Contact Info) Description 07/28/2024 3:15 PM EST Office Visit Dermatology at [address] [place] [phone] Rony Valenzuela MD 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
--- OUTSIDE RECORDS SUMMARY | 2024-01-24 15:45 | XMS_ITS | Encounter Summary ---
Author Organization [facility] [place] [address] Care Team Providers Care Pasteurizing Supervisor Name Role Phone Farnaz Kline MD Primary Care Provider [phone] Reason for Visit * Reason Comments Annual Exam Encounter Details Date Type Department Care Team (Late st Contact Info) Description 05/16/2021 1:30 PM EST Office Visit Dermatology at [address] [address] Rony Valenzuela MD [address] [place] [address] [place] [address] Rosacea Social History Tobacco Use Types Packs/Day Years Used Date Smoking Tobacco: Never Smokeless Tobacco: Never Sex and Gender Information Value Date Recorded Sex Assigned at Not on file Gender Identity Not on file Sexual Orientation Not on file documented as of this encounter Progress Notes * Rony Valenzuela MD - 05/16/2021 1:30 PM EST Problem: 1. ??Follow-up rosacea 2. ??Utilizing spironolactone 100 mg 1 p.o. daily and nadolol 20 mg 1 p.o. daily ?? Jocelyn follows up for her 1 year check. She is been doing well. Her rosacea remains well controlled as does the flushing and blushing problem as well. She denies any side effects from the spironolactone. Physical examination reveals a pleasant 50-year-old woman who has no active rosacea no papules no pustules no significant erythema no flushing or blushing. Assessment plan: Facial erythema/patch rosacea controlled current therapy 1. Continue current dosing of spironolactone 100 mg one p.o. daily which she has been getting with Dr. Urena 2. Continue nadolol 20 mg one p.o. daily. Blood pressure today is 100/82. Will dispense #90 for 3-month supply with three refills 3. Return to clinic in a year for repeat check. 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
--- OUTSIDE RECORDS SUMMARY | 2024-01-24 15:45 | XMS_ITS | Encounter Summary ---
[place] [address] Care Team Providers Care Apprentice Lineman Third Step Name Role Phone Farnaz Kline MD Primary Care Provider [phone] Encounter Details Date Type Department Care Team (Late st Contact Info) Description 05/16/2021 Refill Dermatology at [address] [phone] Brianna Holm LPN Social History Tobacco Use [...] 3:15 PM EST Office Visit Dermatology at [place] 580 [place] [address] Rony Valenzuela MD [address] [facility] DERMATOLOGY [place], [place] [address] Scheduled Procedures Name Priority Associated Diagnoses Date/Ti me NERVE BLOCK, OTHER PERIPHERA L NERVE OR BRANCH (WRVU 0.75) 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
--- OUTSIDE RECORDS SUMMARY | 2024-01-24 15:45 | XMS_ITS | Encounter Summary ---
Author Organization [place] [address] Care Team Providers Care Customer Support Associate Name Role Phone Farnaz Kline MD Primary Care Provider [phone] Reason for Visit * Reason Comments Follow-up Encounter Details Date Type Department Care Team (Late st Contact Info) Description 05/19/2022 2:00 PM EST Office Visit Dermatology at [address] [address] Rony Valenzuela MD [address] [place] [address] [place] [address] Rosacea; Perioral dermatitis Social History Tobacco Use Types Packs/Day Years Used Date Smoking Tobacco: Never Smokeless Tobacco: Never Sex and Gender Information Value Date Recorded Sex Assigned at Not on file Gender Identity Not on file Sexual Orientation Not on file documented as of this encounter Progress Notes * Rony Valenzuela MD - 05/19/2022 2:00 PM EST Problem: 1. ??Follow-up rosacea 2. ??Utilizing spironolactone 100 mg 1 p.o. daily and nadolol 20 mg 1 p.o. daily Jocelyn follows up for a yearly check. She has noted a new rash of roughly 2 months duration below the left and below the right angles of her mouth. Physical examination reveals a pleasant 51-year-old woman who has patches of perioral dermatitis inthe above 2 noted locations. Her complexion is otherwise clear and without any significant erythemaof the face. Assessment plan: Rosacea, facial erythema Pat rosacea controlled with current therapy 1. Continue spironolactone 100 mg 1 p.o. daily. She receives this medication from Dr. Klien. 2. Continue nadolol 20 mg 1 p.o. daily dispense #90 for erythema supply with 3 refills. Blood pressure today was 116/70 3. Return to clinic in a year for recheck Perioral dermatitis, mild 1. Begin clindamycin 1% solution, apply to affected face on a twice daily basis for 4 to 6 weeks till rash clears and then discontinue. Dispense 60 mL with 1 refill. 2. This prescription and nadolol will be called into the [facility] in [place]. 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
--- OUTSIDE RECORDS SUMMARY | 2024-01-24 15:46 | XMS_ITS | Encounter Summary ---
[place] [address] Care Team Providers Care Marketing Campaign Analyst Name Role Phone Farnaz Kline MD Primary Care Provider [phone] Encounter Details Date Type Department Care Team (Late st Contact Info) Description 05/08/2019 Refill Dermatology at [address] [phone] Brianna Holm LPN Social History Tobacco Use [...] 3:15 PM EST Office Visit Dermatology at [address] [address] Rony Valenzuela MD 580 [facility] DERMATOLOGY [place], [place] [phone] Scheduled Procedures Name Priority Associated Diagnoses Date/Ti me NERVE BLOCK, OTHER PERIPHERA L NERVE OR BRANCH (WRVU 0.75) 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
--- OUTSIDE RECORDS SUMMARY | 2024-01-24 15:46 | XMS_ITS | Encounter Summary ---
[place] [address] Care Team Providers Care Paper Slitter Name Role Phone Farnaz Kline MD Primary Care Provider [phone] Encounter Details Date Type Department Care Team (Late st Contact Info) Description 05/10/2020 Refill Dermatology at [address] [phone] Brianna Holm LPN Social History Tobacco Use [...] 3:15 PM EST Office Visit Dermatology at [address] [address] Rony Valenzuela MD 580 [facility] DERMATOLOGY [place], [place] [address] Scheduled Procedures Name Priority Associated Diagnoses Date/Ti me NERVE BLOCK, OTHER PERIPHERA L NERVE OR BRANCH (WRVU 0.75) 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
--- OUTSIDE RECORDS SUMMARY | 2024-01-24 15:46 | XMS_ITS | Encounter Summary ---
[place] [address] Care Team Providers Care Program Review Director Name Role Phone Farnaz Kline MD Primary Care Provider [phone] Encounter Details Date Type Department Care Team (Late st Contact Info) Description 05/27/2010 9:15 AM EST Office Visit Dermatology [address] [place] [address] [address] [place] [address] Rony Valenzuela MD [address] [facility] [place] [address] Social History Tobacco Use Types Packs/Day Years Used Date Smoking Tobacco: Never Assessed Sex and Gender Information Value Date Recorded Sex Assigned at Not on file Gender Identity Not on file Sexual Orientation Not on file documented as of this encounter Plan of Treatment Upcoming Encounters Date Type Department Care Team (Late st Contact Info) Description 07/28/2024 3:15 PM EST Office Visit Dermatology at [place] [address] [place] [address] Rony Valenzuela MD [address] [facility] [place] [address] Scheduled Procedures Name Priority Associated Diagnoses Date/Ti me NERVE BLOCK, OTHER PERIPHERA L NERVE OR BRANCH (WRVU 0.75) 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
--- OUTSIDE RECORDS SUMMARY | 2024-01-24 15:46 | XMS_ITS | Encounter Summary ---
Author Organization [facility] [place] [address] Care Team Providers Care Cash Register Repairer Name Role Phone Farnaz Kline MD Primary Care Provider [phone] Reason for Visit * Reason Comments Follow-up Encounter Details Date Type Department Care Team (Late st Contact Info) Description 05/08/2019 4:15 PM EST Office Visit Dermatology at [address] [address] Rony Valenzuela MD [address] [place] [address] [place] [address] Rosacea Social History Tobacco Use Types Packs/Day Years Used Date Smoking Tobacco: Never Smokeless Tobacco: Never Sex and Gender Information Value Date Recorded Sex Assigned at Not on file Gender Identity Not on file Sexual Orientation Not on file documented as of this encounter Progress Notes * Rony Valenzuela MD - 05/08/2019 4:15 PM EST Problem: 1. Follow-up rosacea 2. Utilizing spironolactone 100 mg 1 p.o. daily and nadolol 20 mg 1 p.o. daily Jocelyn follows up and is doing beautifully. She is taking her's 1 spironolactone a day and as often forgot to take the second Adderall dose a day. Ineffective been taking this daily and things been going just great. Has not had any flares. She has not had any side effects. Physical examination reveals a pleasant 48-year-old woman who has no significant erythema no flushing no blushing, no palpable pustules. But there is a faint violaceous discoloration at sites of prior involvement, her facial erythema has just about totally cleared. There are no papules or pustules Assessment plan: Facial erythema/patch rosacea controlled with current therapy 1. Continue current dosing of spironolactone 100 mg 1 p.o. daily which she has been getting from Dr. Kline 2. I will renew her nadolol 20 mg which she can take on a once daily basis. Dispense 90 for three month supply with one refill. Blood pressure today 102/62, and last visit was 112/62. 3. Given good response and patient good level of patient tolerance of medication, continue now for 6 months then return to clinic. 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
--- OUTSIDE RECORDS SUMMARY | 2024-01-24 15:46 | XMS_ITS | Encounter Summary ---
Author Organization [facility] Address [address] [place] [address] Care Team Providers Care Rubber Thread Spooler Name Role Phone Farnaz Kline MD Primary Care Provider [phone] Encounter Details Date Type Department Care Team (Late st Contact Info) Description 02/13/2011 Results Only [facility] [place] [address] [place] [address] Sulaiman López MD [address] [place] [address] [place] [address] Social History Tobacco Use Types Packs/Day Years Used Date Smoking Tobacco: Never Assessed Sex and Gender Information Value Date Recorded Sex Assigned at Not on file Gender Identity Female 04/02/2023 14:55 EDT Sexual Orientation Not on file documented as of this encounter Plan of Treatment Not on file documented as of this encounter Procedures Procedure Name Priority Date/Time Associated Diagnosis Comments SURGICAL PATHOLOGY Routine 02/13/2011 0:00 EDT documented in this encounter Results * SURGICAL PATHOLOGY (02/13/2011 0:00 EDT) Pathology Report: SURGICAL PATHOLOGY REPORT ? Reports generated via electronic interface contain original data; ? however they are lacking the format of the original report. ? Caution should be taken when reading/interpreting unformatted reports. ? Name: ? JOCELYN DAVIS ? Accession #: ? [id number] ? : ? 1970 (Age: 40) ??F ? Collect Date: ? 02/13/2011 ? Location: ? [facility] ? Receive Date: ? 02/13/2011 ? Provider: SULAIMAN D DREISBACH MD ? Copy to: FARNAZ CONNIE MD ? Final Pathologic Diagnosis: ? Soft tissue of foot, left, resection: ? - Focal myxoid degenerative changes, suggestive of ganglion. ??See comment. ? Comment: ? This case has been reviewed at the intradepartmental consultation ? conference. ??(Dr. Martinez)/ljn ? Document reviewed and electronically signed by: ? Oseas Martinez, MD ? Report ??Date: 02/17/2011 15:34 ? By the signature above, the attending physician certifies that he/she has ? personally conducted a gross and/or microscopic examination of the described ? specimens and rendered or confirmed the above diagnosis. ? Specimen(s) Received: ? Fibroma Lt foot ? Clinical History: ? Mass extensor surface L foot just lateral to ext. hallices longus at level of metatarsal cuneiform joint; ? ganglion cyst vs giant cell tumor of tendon ? sheath ? Gross Description: ? Received in formalin labelled Davis, Jocelyn and fibroma left foot are three montgomery-white firm fibrous unoriented soft tissues ranging from 0.8 x 0.7 x 0.4 cm to 1.2 x 1.0 x 0.5 cm. ??The cut surfaces of the largest tissue are ? montgomery-white firm and fibrous with no cystic structures no areas of hemorrhage ? grossly present. ??The specimens are inked, sectioned, and entirely submitted as follows: ? BLOCK HANSON ? A1 ?Smaller tissues, intact ? A2 ?Largest tissue, trisected ? (Paloma Mcneil)/mms ? End of Report ? [facility] 02/13/2011 02/13/2011 8:3 1 EDT Sulaiman López MD PATHOLOGY ORDERABLE S Performing Organization Address City/State/[facility] Co de Phone Number [facility] [address] [place] [address] documented in this encounter Visit Diagnoses Not on filedocumented in this encounter Care Teams Rubber Thread Spooler Relationship Specialty Start Date End Date Farnaz Kline MD [address] [place] [phone] PCP - General 08/16/09 documented as of this encounter
--- OUTSIDE RECORDS SUMMARY | 2024-01-24 15:46 | XMS_ITS | Referral Summary ---
Author Organization [facility] Address [address] [place] [address] Care Team Providers Care Processor Helper Name Role Phone Farnaz Kline MD Primary Care Provider [phone] Allergies Active Allergy Reactions Criticality Noted Date Comments Codeine Nausea And Vomiting High 05/19/2022 Penicillins 03/26/2011 Sulfa (Sulfonamide Antibiotics) 03/06 Sulfasalazine Hives Medium 05/02/2019 Medications Medication Sig Dispensed Refills Start Date End Date Status spironolactone (ALDACTONE) 100 mg tablet Take 1 Tablet by mouth daily. 03/29/2023 Active valACYclovir (VALTREX) 1 gram tablet Take 1 Tablet by mouth daily. 03/01/2023 Active nadoloL (CORGARD) 20 mg tablet Take 1 Tablet by mouth daily. 03/29/2023 Active solifenacin (VESICARE) 10 mg tablet Take 1 Tablet by mouth daily. 03/11/2023 Active omeprazole (PRILOSEC) 40 mg capsule TAKE 1 CAPSULE BY MOUTH ONCE DAILY FOR 4 TO 6 WEEKS NEEDED 03/29/2023 Active SUMAtriptan (IMITREX) 100 mg tablet TAKE 1 TABLET BY MOUTH TWO TIMES A DAY NEEDED FOR MIGRAIN 02/08/2023 Active Social History Tobacco Use Types Packs/Day Years Used Date Smoking Tobacco: Never Assessed Interpersonal Safety Answer Date Record ed Physically Hurt Never 02/04/2020 Verbally Threaten Not on file 02/04/2020 Sex and Gender Information Value Date Recorded Sex Assigned at Not on file Gender Identity Female 04/02/2023 14:55 EDT Sexual Orientation Not on file Plan of Treatment Not on file Procedures Procedure Name Priority Date/Time Associated Diagnosis Comments HEPATITIS C AB W REFLEX TO HCV RNA BY PCR Routine 08/07/2022 7:42 EST from Last 3 Months or Most Recently Relevant to Health Maintenance Results * HEPATITIS C AB W REFLEX TO HCV RNA BY PCR (08/07/2022 7:42 EST) Hep C Antibody Negative Negative 08/10/2022 10:59 EST [facility] Blood VENOUS BLOOD / Unknown 08/07/2022 7:42 EST 08/09/2022 16:51 EST Provider Outr Resulting Lab CHEMISTRY & BLOOD GAS ORDERABLES [facility] [address] [place] [address] from Last 3 Months or Most Recently Relevant to Health Maintenance Care Teams Processor Helper Relationship Specialty Start Date End Date Farnaz Kline MD [address] [place] [phone] PCP - General 08/16/09
--- OUTSIDE RECORDS SUMMARY | 2024-01-24 15:46 | XMS_ITS | Encounter Summary ---
Author Organization [facility] Address [address] [place] [address] Care Team Providers Care Fabrication And Layout Craftsman Name Role Phone Farnaz Kline MD Primary Care Provider [phone] Encounter Details Date Type Department Care Team (Latest Contact Info) Description 04/07/2023 8:52 EDT - 04/07/2023 23:59 EDT Hospital Encounter [facility] [address], [place] [id number] Discharge Disposition: Home or Self Care Social History Tobacco Use Types Packs/Day Years [...] Sig Dispensed Refills Start Date End Date nadoloL (CORGARD) 20 mg tablet Take 1 Tablet by mouth daily. 03/29/2023 omeprazole (PRILOSEC) 40 mg capsule TAKE 1 CAPSULE BY MOUTH ONCE DAILY FOR 4 TO 6 WEEKS NEEDED 03/29/2023 solifenacin (VESICARE) 10 mg tablet Take 1 Tablet by mouth daily. 03/11/2023 spironolactone (ALDACTONE) 100 mg tablet Take 1 Tablet by mouth daily. 03/29/2023 SUMAtriptan (IMITREX) 100 mg tablet TAKE 1 TABLET BY MOUTH TWO TIMES A DAY NEEDED FOR MIGRAIN 02/08/2023 valACYclovir (VALTREX) 1 gram tablet Take 1 Tablet by mouth daily. 03/01/2023 documented as of this encounter Discharge Disposition Disposition Code Departure Means Destination Home or Self Care documented in this encounter Plan of Treatment Not on file documented as of this encounter Procedures Procedure Name Priority Date/Time Associated Diagnosis Comments XR FOOT RIGHT 3 OR MORE VIEWS Routine 04/07/2023 9:13 EDT Bilateral foot pain documented in this encounter Results * XR FOOT RIGHT 3 OR MORE VIEWS (04/07/2023 9:13 EDT) Anatomical Region Laterality Modality Lower Extremities Right Computed Radio graphy 04/09/2023 17:1 7 EDT Impressions 04/09/2023 17:17 EDT FINDINGS / IMPRESSION: Left foot: 3 weightbearing views show no discrete fracture or dislocation. There are mild scattered degenerative changes in the foot, slightly more conspicuous in the left hindfoot and midfoot. No evidence of avascular necrosis nor Freiberg's infraction. Mineralization is age appropriate. There is a large spur like enthesophyte in the plantar aspect of the calcaneus. Right foot: 3 weightbearing views show no discrete fracture or dislocation. There are scattered degenerative changes from a bunionectomy as noted by the shaved medial eminence of the 1st metatarsal head. There are mild scattered degenerative changes in the foot. No evidence of avascular necrosis nor Freiberg's infraction. Mineralization is age appropriate. Enthesopathic changes seen in the plantar and posterior aspects of the calcaneus. [id number] Narrative 04/09/2023 17:17 EDT EXAM/TECHNIQUE: XR FOOT LEFT 3 OR MORE VIEWS, XR FOOT RIGHT 3 OR MORE VIEWS ??04/07/2023 9:00 AM HISTORY: bilateral midfoot pain;M79.671:Bilateral foot pain;M79.672:Bilateral foot pain COMPARISON: None. Procedure Note Aquilino oMnson MD - 04/09/2023 EXAM/TECHNIQUE: XR FOOT LEFT 3 OR MORE VIEWS, XR FOOT RIGHT 3 OR MOREVIEWS 04/07/2023 9:00 AM HISTORY: bilateral midfoot pain;M79.671:Bilateral footpain;M79.672:Bilateral foot pain COMPARISON: None. IMPRESSION FINDINGS / IMPRESSION: Left foot: 3 weightbearing views show no discrete fracture or dislocation.There are mild scattered degenerative changes in the foot, slightly moreconspicuous in the left hindfoot and midfoot. No evidence of avascularnecrosis nor Freiberg's infraction. Mineralization is age appropriate.There is a large spur like enthesophyte in the plantar aspect of thecalcaneus. Right foot: 3 weightbearing views show no discrete fracture ordislocation. There are scattered degenerative changes from a bunionectomyas noted by the shaved medial eminence of the 1st metatarsal head. Thereare mild scattered degenerative changes in the foot. No evidence ofavascular necrosis nor Freiberg's infraction. Mineralization is ageappropriate. Enthesopathic changes seen in the plantar and posterioraspects of the calcaneus. [id number] Camille Garcia NP [facility] DIAGNOSTIC [facility] ORDERABLES * XR FOOT LEFT 3 OR MORE VIEWS (04/07/2023 9:13 EDT) Anatomical Region Laterality Modality Lower Extremities Left Computed Radio graphy 04/09/2023 17:1 7 EDT Impressions 04/09/2023 17:17 EDT FINDINGS / IMPRESSION: Left foot: 3 weightbearing views show no discrete fracture or dislocation. There are mild scattered degenerative changes in the foot, slightly more conspicuous in the left hindfoot and midfoot. No evidence of avascular necrosis nor Freiberg's infraction. Mineralization is age appropriate. There is a large spur like enthesophyte in the plantar aspect of the calcaneus. Right foot: 3 weightbearing views show no discrete fracture or dislocation. There are scattered degenerative changes from a bunionectomy as noted by the shaved medial eminence of the 1st metatarsal head. There are mild scattered degenerative changes in the foot. No evidence of avascular necrosis nor Freiberg's infraction. Mineralization is age appropriate. Enthesopathic changes seen in the plantar and posterior aspects of the calcaneus. [id number] Narrative 04/09/2023 17:17 EDT EXAM/TECHNIQUE: XR FOOT LEFT 3 OR MORE VIEWS, XR FOOT RIGHT 3 OR MORE VIEWS ??04/07/2023 9:00 AM HISTORY: bilateral midfoot pain;M79.671:Bilateral foot pain;M79.672:Bilateral foot pain COMPARISON: None. Procedure Note Aquilino Monson MD - 04/09/2023 EXAM/TECHNIQUE: XR FOOT LEFT 3 OR MORE VIEWS, XR FOOT RIGHT 3 OR MOREVIEWS 04/07/2023 9:00 AM HISTORY: bilateral midfoot pain;M79.671:Bilateral footpain;M79.672:Bilateral foot pain COMPARISON: None. IMPRESSION FINDINGS / IMPRESSION: Left foot: 3 weightbearing views show no discrete fracture or dislocation.There are mild scattered degenerative changes in the foot, slightly moreconspicuous in the left hindfoot and midfoot. No evidence of avascularnecrosis nor Freiberg's infraction. Mineralization is age appropriate.There is a large spur like enthesophyte in the plantar aspect of thecalcaneus. Right foot: 3 weightbearing views show no discrete fracture ordislocation. There are scattered degenerative changes from a bunionectomyas noted by the shaved medial eminence of the 1st metatarsal head. Thereare mild scattered degenerative changes in the foot. No evidence ofavascular necrosis nor Freiberg's infraction. Mineralization is ageappropriate. Enthesopathic changes seen in the plantar and posterioraspects of the calcaneus. [id number] Camille Garcia COLOR SHOP HELPER IMG DIAGNOSTIC [facility] ORDERABLES documented in this encounter Visit Diagnoses Not on filedocumented in this encounter Care Teams Fabrication And Layout Craftsman Relationship Specialty Start Date End Date Farnaz Kline MD [address] [place] [phone] PCP - General 08/16/09 documented as of this encounter
--- OUTSIDE RECORDS SUMMARY | 2024-01-24 15:46 | XMS_ITS | Encounter Summary ---
Author Organization [facility] Address [address] [place] [address] Care Team Providers Care Wire Stripper Name Role Phone Farnaz Rosales MD Primary Care Provider [phone] Encounter Details Date Type Department Care Team (Late st Contact Info) Description 08/04/2007 Results Only [facility] [address] [place] [address] Farnaz Rosales MD [address] [facility] [place] [address] [place] [phone] Social History Tobacco Use Types Packs/Day Years [...] Date/Time Associated Diagnosis Comments SURGICAL PATHOLOGY Routine 08/04/2007 0:00 EST documented in this encounter Results * SURGICAL PATHOLOGY (08/04/2007 0:00 EST) Pathology Report: SURGICAL PATHOLOGY REPORT Reports generated via electronic interface contain original data; however they are lacking the format of the original report. Caution should be taken when reading/interpreting unformatted reports. Name: ? JOCELYN DAVIS ? Accession #: ? [id number] ? : ? 1970 (Age: 36) ??F ? Collect Date: ? 08/04/2007 ? Location: ? [facility] ? Receive Date: ? 08/05/2007 ? Provider: FARNAZ ROSALES MD Copy to: ? Final Pathologic Diagnosis: ? Skin of knee, right, shave biopsy: - Melanocytic nevus, compound type, with unusual architectural features and severe cytologic atypia, ??involving peripheral tissue edges. ??See microscopic and comment. Comment: ? Dr. Ely Mercado has reviewed this case in consultation and concurs with the above diagnosis. ??(Dr. Amaya)/[facility] Microscopic Description: ? Immunohistochemical staining was performed on this case to further characterize the lesion. ??Positive and negative controls stained appropriately. The sections of the biopsy show compound melanocytic proliferation with severely atypical melanocytes, predominantly present at the junction of epidermis and dermis as nests with rare melanocytes above the dermal-epidermal junction. ??The lesion has features of maturation, although this is not complete in all areas. The cytology of the melanocytes is somewhat epithelioid/spitzoid. ??(Dr. Amaya)/[facility] Antibody (Clone) ? Result [id number] DAB (HMB45, [facility]) ? Staining of superficial dermal nests of the lesion, but ? no staining in deeper portions of the lesion NOTE: ??One or more of the reagents used in immunohistochemical testing in this case may not have been cleared or approved by the U.S. Food and Drug Administration (FDA). ??The FDA has determined that such clearance or approval is not necessary. ??These tests are used for clinical purposes. ??They should not be regarded as investigational or for research. ??These reagents' ??performance characteristics have been determined by [facility]. ??This laboratory is certified under the Clinical Laboratory Improvement Amendments of 1988 (CLIA-88) as qualified to perform high complexity clinical laboratory testing. ?? Document reviewed and electronically signed by: Thor Amaya MD Report ??Date: 08/12/2007 16:16 By the signature above, the attending physician certifies that he/she has personally conducted a gross and/or microscopic examination of the described specimens and rendered or confirmed the above diagnosis. Specimen(s) Received: ? Lesion removal from R knee Clinical History: ? Not listed Gross Description: ? Received in formalin labelled Davis and lesion right knee is a 0.9 x 0.6 by less than 0.1 cm white-vivar skin shave. ??Centrally, there is a 0.6 x 0.4 x 0.1 cm granular white papule. ??Quadrisected and entirely submitted in one cassette. ??(Arnulfo Patricia)/marisa End of Report [facility] 08/04/2007 08/05/2007 12: 15 EST Farnaz Rosales MD PATHOLOGY ORDERABLES [facility] [address] [place] [address] documented in this encounter Visit Diagnoses Not on filedocumented in this encounter Care Teams Wire Stripper Relationship Specialty Start Date End Date Farnaz Rosales MD [address] [place] [phone] PCP - General 08/16/09 documented as of this encounter
--- OUTSIDE RECORDS SUMMARY | 2024-01-24 15:46 | XMS_ITS | Encounter Summary ---
[place] [address] Care Team Providers Care Stamp Maker Name Role Phone Farnaz Kline MD Primary Care Provider [phone] Reason for Visit * Reason Comments Skin Check * Consultation (Routine) - Specialty Diagnoses / Procedures Referred By Libertad hickey Referred To Contact Dermatology Diagnoses Rosacea, unspecified rosacea Procedures Consult Farnaz Kline MD [address] [place] [address] [address] [facility] Dermatology [address] [place] [phone] Referral ID Status Reason Start Date Expiration Date V isits Requested Visits Authorized [id number] Consult, Test & Treat PCP Updated and/or Approved 01/02/2019 04/04/2019 6 6 Encounter Details Date Type Department Care Team (Late st Contact Info) Description 01/02/2019 4:15 PM EDT Office Visit Dermatology at [address] [phone] Rony Valenzuela MD [address] [facility] [place] [address] Rosacea Social History Tobacco Use Types Packs/Day Years Used Date Smoking Tobacco: Never Smokeless Tobacco: Never Sex and Gender Information Value Date Recorded Sex Assigned at Not on file Gender Identity Not on file Sexual Orientation Not on file documented as of this encounter Progress Notes * Rony Valenzuela MD - 01/02/2019 4:15 PM EDT Problem sarahy Banks follows after last seeing me in October 2012. She been on spironolactone [address] daily dose prescribed [address] Dr[address] Kline this is been quite helpful for her obesity her acne. Is been using the metronidazole 0.75% gel but she finds this to be irritating in fact tends to worsen her face. She does not have a papulopustular form of rosacea but really a more flushing blushing type rosacea reaction which is triggered by heat, hot spicy foods, and a glass of wine or beer. The patient states that the breast tenderness which she had previously and discussed with Dr. Kline has spontaneously resolved while she has continued spironolactone. Physical examination reveals a pleasant 48-year-old woman who has mild diffuse erythema today without any flushing or blushing reaction. She does not have excessive telangiectasia formation. She doesnot have any papules or pustules. Assessment and plan: Rosacea, with excessive flushing/blush reaction 1. DC metronidazole 0.75% gel. Continue spironolactone 2. Begin nadolol 20 mg 1 p.o. nightly for 1 week, then advance to 1 p.o. twice daily will dispense #60 for 1 month supply to her [facility] pharmacy in [place] with 0 refills 3. Return to clinic in 1 month for repeat check. 4. We will carefully monitor blood pressure. 5. Expect to be able to taper her back to a daily dosing once flush/blush reaction has been controlled CC: Farnaz Kline MD documented in this encounter Plan of Treatment Upcoming Encounters Date Type Department Care Team (Late st Contact Info) Description 07/28/2024 3:15 PM EST Office Visit Dermatology at [address] [phone] Rony Valenzuela MD [address] [facility] [place] [address] Scheduled Procedures Name Priority Associated Diagnoses Date/Ti me NERVE BLOCK, OTHER PERIPHERA L NERVE OR BRANCH (WRVU 0.75) Cluneal neuropathy documented as of this encounter Visit Diagnoses Diagnosis Rosacea documented in this encounter Care Teams Stamp Maker Relationship Specialty Start Date End Date Farnaz Kline MD [address] [place] [address] PCP - General 05/27/10 documented as of this encounter
--- OUTSIDE RECORDS SUMMARY | 2024-01-24 15:46 | XMS_ITS | Encounter Summary ---
Author Organization [facility] Address [address] [place] [address] Care Team Providers Care Courtesy Van Driver Name Role Phone Farnaz Kline MD Primary Care Provider [phone] Encounter Details Date Type Department Care Team (Late st Contact Info) Description 08/08/2022 Lab Requisition [facility] Pathology & Laboratory Medicine - [address] [address] Outr Resulting Lab, Provider Social History Tobacco Use Types Packs/Day Years [...] RNA BY PCR Routine 08/07/2022 7:42 EST documented in this encounter Results * HEPATITIS C AB W REFLEX TO HCV RNA BY PCR (08/07/2022 7:42 EST) Hep C Antibody Negative Negative 08/10/2022 10:59 EST [facility] Blood VENOUS BLOOD / Unknown 08/07/2022 7:42 EST 08/09/2022 16:51 EST Provider Outr Resulting Lab CHEMISTRY & BLOOD GAS ORDERABLES [facility] [address] [place] [address] documented in this encounter Visit Diagnoses Not on filedocumented in this encounter Care Teams Courtesy Van Driver Relationship Specialty Start Date End Date Farnaz Kline MD [address] [place] [phone] PCP - General 08/16/09 documented as of this encounter
--- OUTSIDE RECORDS SUMMARY | 2024-01-24 15:46 | XMS_ITS | Encounter Summary ---
Author Organization [facility] Address [address] [place] [address] Care Team Providers Care Cash Shortage Investigator Name Role Phone Farnaz Kline MD Primary Care Provider [phone] Encounter Details Date Type Department Care Team (Latest Contact Info) Description 09/15/2017 12:53 EDT - 09/15/2017 23:59 EDT Hospital Encounter [address] [address] Unknown, Provider, Discharge Disposition: Home or Self Care Social History Tobacco Use Types Packs/Day Years Used Date Smoking Tobacco: Never Assessed Sex and Gender Information Value Date Recorded Sex Assigned at Not on file Gender Identity Female 04/02/2023 14:55 EDT Sexual Orientation Not on file documented as of this encounter Discharge Disposition Disposition Code Departure Means Destination Home or Self Longterm documented in this encounter Plan of Treatment Not on file documented as of this encounter Visit Diagnoses Not on filedocumented in this encounter Care Teams Cash Shortage Investigator Relationship Specialty Start Date End Date Farnaz Kline MD [address] [place] [phone] PCP - General 08/16/09 documented as of this encounter
--- OUTSIDE RECORDS SUMMARY | 2024-01-24 15:46 | XMS_ITS | Encounter Summary ---
Author Organization [facility] Address [address] [place] [address] Care Team Providers Care Senior Developer Name Role Phone Farnaz Kline MD Primary Care Provider [phone] Encounter Details Date Type Department Care Team (Latest Contact Info) Description 04/07/2023 8:52 EDT - 04/07/2023 23:59 EDT Hospital Encounter [facility] [address] [place], [place] [id number] Discharge Disposition: Home or Self Care Social [...] Priority Date/Time Associated Diagnosis Comments XR FOOT LEFT 3 OR MORE VIEWS Routine 04/07/2023 9:13 [...] plantar and posterior aspects of the calcaneus. [id number] Narrative 04/09/2023 17:17 EDT EXAM/TECHNIQUE: XR FOOT [...] the plantar and posterioraspects of the calcaneus. [id number] Camille Garcia NP [facility] [...] plantar and posterior aspects of the calcaneus. [id number] Narrative 04/09/2023 17:17 EDT EXAM/TECHNIQUE: XR FOOT [...] the plantar and posterioraspects of the calcaneus. [id number] Camille Garcia ULTIMATE HOOPS TRAINER [facility] ORDERABLES documented in this encounter Visit Diagnoses Not on filedocumented in this encounter Care Teams Senior Developer Relationship Specialty Start Date End Date Farnaz Kline MD [address] [place] [phone] PCP - General 08/16/09 documented as of this encounter
--- OUTSIDE RECORDS SUMMARY | 2024-01-24 15:46 | XMS_ITS | Encounter Summary ---
Author Organization [facility] [place] [address] Care Team Providers Care Account Liaison Hospice Name Role Phone Farnaz Kline MD Primary Care Provider [phone] Reason for Visit * Reason Comments Varicose Veins LLE Encounter Details Date Type Department Care Team (Late st Contact Info) Description 02/17/2013 10:20 AM EDT Office Visit [place] [address] Tao Stanton MD [facility] [place] [address] Varicose veins (Primary Dx) Discharge Disposition: Home Social History Tobacco Use Types Packs/Day Years Used Date Smoking Tobacco: Never Sex and Gender Information Value Date Recorded Sex Assigned at Not on file Gender Identity Not on file Sexual Orientation Not on file documented as of this encounter Last Filed Vital Signs Vital Sign Reading Time Taken Comments Blood Pressure 125/76 02/17/2013 10:49 AM EDT le ft arm Pulse 66 02/17/2013 10:49 AM EDT Temperature - - Respiratory Rate - - Oxygen Saturation 100% 02/17/2013 10:49 AM EDT Inhaled Oxygen Concentration - - Weight 69.9 kg (154 lb) 02/17/2013 10:49 AM EDT Height 157.5 cm (5' 2) 02/17/2013 10:49 AM EDT Body Mass Index 28.17 02/17/2013 10:49 AM EDT documented in this encounter Progress Notes * Tao Stanton MD - 02/17/2013 11:27 AM EDT Subjective: Patient ID: Jocelyn Davis is a 42 y.o. female. HPI I am seeing this patient at the request of Dr. Kline. I have reviewed all pertinent data. Pt with a long history of a lateral left leg varicose vein which has become increasingly painful now to the point of disturbing her sleep. She denies a personal or family history thrombophlebitis, DVT or ahistory of bleeding or clotting. She has a family history of varicosities. Review of Systems Constitutional: Negative. HENT: Negative. Respiratory: Negative. Cardiovascular: Negative. Gastrointestinal: Negative. Genitourinary: Negative. Musculoskeletal: Negative. Neurological: Negative. Hematological: Negative. Psychiatric/Behavioral: Negative. Objective: Physical Exam Constitutional: She is oriented to person, place, and time. She appears well- developed and well-nourished. HENT: Head: Normocephalic and atraumatic. Eyes: Conjunctivae normal are normal. Pupils are equal, round, and reactive to light. Neck: Normal range of motion. Neck supple. Cardiovascular: Normal rate, regular rhythm and intact distal pulses. Pulmonary/Chest: Effort normal. Abdominal: Soft. Musculoskeletal: Normal range of motion. Neurological: She is alert and oriented to person, place, and time. Skin: Skin is warm and dry. Lateral left leg varicosity without thrombophlebitis, hemosiderosis, or lipodermatosclerosis Psychiatric: She has a normal mood and affect. Assessment and Plan: No significant valvular incompetence seen at Duplex exam. I have given her a prescription for graduated compression. RV PRN. 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
--- OUTSIDE RECORDS SUMMARY | 2024-01-24 15:46 | XMS_ITS | Encounter Summary ---
Author Organization [facility] Address [address] [place] [address] Care Team Providers Care Operating System Programmer Name Role Phone Farnaz Kline MD Primary Care Provider [phone] Encounter Details Date Type Department Care Team (Late st Contact Info) Description 07/12/2022 Lab Requisition [facility] Pathology & Laboratory Medicine - [address] [address] Outr Resulting Lab, Provider Social History Tobacco [...] Procedure Name Priority Date/Time Associated Diagnosis Comments FECAL BACTERIAL PATHOGENS BY PCR Routine 07/12/2022 10:30 EST documented in this encounter Results * FECAL BACTERIAL PATHOGENS BY PCR (07/12/2022 10:30 EST) Salmonella PCR Negative Negative 07/12/2022 22:35 EST [facility] Shigella/Enteroin vasive E. coli Negative Negative 07/12/2022 22:35 EST [facility] HN LAB CAMPYLOBACTER PCR Negative Negative 07/12/2022 22:35 EST [facility] Shiga Toxin PCR Negative Negative 22:35 EST [facility] Feces SPECIMEN FROM RECTUM / Unknown 07/12/2022 10:30 EST 07/12/2022 17:59 EST Provider Outr Resulting Lab MICROBIOLOGY - GENERAL ORDERABLES Performing Organization Address City/State/[facility] Co de Phone Number [facility] [address] [place] [address] documented in this encounter Visit Diagnoses Not on filedocumented in this encounter Care Teams Operating System Programmer Relationship Specialty Start Date End Date Farnaz Kline MD [address] [place] [phone] PCP - General 08/16/09 documented as of this encounter
--- OUTSIDE RECORDS SUMMARY | 2024-01-24 15:46 | XMS_ITS | Encounter Summary ---
Author Organization [facility] Address [address] [place] [address] Care Team Providers Care Conservation Officer Name Role Phone Farnaz Kline MD Primary Care Provider [phone] Encounter Details Date Type Department Care Team (Late st Contact Info) Description 04/09/2020 Lab Requisition [facility] Pathology & Laboratory Medicine - [address] [address] Outr Resulting Lab, Provider Social History Tobacco [...] Procedure Name Priority Date/Time Associated Diagnosis Comments CHLAMYDIA/N. GONORRHOEAE AMPLIFIED NUCLEIC ACID Routine 04/08/2020 11:29 EDT documented in this encounter Results * CHLAMYDIA/N. GONORRHOEAE AMPLIFIED RNA (04/08/2020 11:29 EDT) Neisseria gonorrhoeae Result Negative Negative 04/10/2020 15:10 EDT [facility] Chlamydia trachomatis Result Negative Negative 04/10/2020 15:10 EDT [facility] Urine URINE / Unknown 04/08/2020 1 1:29 EDT 04/09/2020 20:39 EDT Narrative [facility] - 04/10/2020 15:10 EDT A first catch urine specimen is acceptable for detection of Gonorrhea and Chlamydia, but might detect up to 10% fewer infections when compared with vaginal and endocervical swab samples. Provider Outr Resulting Lab MICROBIOLOGY - GENERAL ORDERABLES [facility] [address] [place] [address] documented in this encounter Visit Diagnoses Not on filedocumented in this encounter Care Teams Conservation Officer Relationship Specialty Start Date End Date Farnaz Kline MD [address] [place] [phone] PCP - General 08/16/09 documented as of this encounter
--- OUTSIDE RECORDS SUMMARY | 2024-01-24 15:46 | XMS_ITS | Encounter Summary ---
Author Organization [facility] Address [address] [place] [address] Care Team Providers Care Water Main Installer Helper Name Role Phone Farnaz Kline MD Primary Care Provider [phone] Encounter Details Date Type Department Care Team (Late st Contact Info) Description 01/10/2002 Results Only [facility] - [facility] [address] [place] [address] Aarti Medina, LINSEED OIL ORDER FILLER [address] [phone] Social History Tobacco Use Types Packs/Day Years Used Date Smoking Tobacco: Never Assessed Sex and Gender Information Value Date Recorded Sex Assigned at Not on file Gender Identity Female 04/02/2023 14:55 EDT Sexual Orientation Not on file documented as of this encounter Plan of Treatment Not on file documented as of this encounter Procedures Procedure Name Priority Date/Time Associated Diagnosis Comments CYTOPATHOLOGY Routine 01/10/2002 0:00 EDT documented in this encounter Results * CYTOPATHOLOGY (01/10/2002 0:00 EDT) Pathology Report: CYTOPATHOLOGY REPORT Reports generated via electronic interface contain original data; however they are lacking the format of the original report. Caution should be taken when reading/interpreti ng unformatted reports. Name: ? JOCELYN DAVIS ? Accession #: ? [id number] : ? 1970 (Age: 31) ??F ?Collect Date: ? 01/10/2002 Location: ? [facility] ? Receive Date: ? 01/12/2002 Provider: ?AARTI MEDINA LINSEED OIL ORDER FILLER Copy to: ? Specimen/Source: ?ThinPrep Pap Test, Cervix/Endocervix Last Menstrual Period: ? 12/26/01 Hormonal/Contracep tive Status: ? Control Pills ? SPECIMEN ADEQUACY ? Satisfactory for Evaluation - transformation zone component present GENERAL CATEGORIZATION ? Negative for Intraepithelial Lesion or Malignancy ? Document reviewed and electronically signed by: ? Martina Young, [place](ASCP) ? Report Date: ??01/18/2002 10:02 End of Report [facility] 01/10/2002 01/12/2002 Aarti Medina LINSEED OIL ORDER FILLER PATHOLOGY ORDERABLES [facility] [address] [place] [address] documented in this encounter Visit Diagnoses Not on filedocumented in this encounter Care Teams Water Main Installer Helper Relationship Specialty Start Date End Date Farnaz Kline MD [address] [place] [phone] PCP - General 08/16/09 documented as of this encounter
--- OUTSIDE RECORDS SUMMARY | 2024-01-24 15:46 | XMS_ITS | Encounter Summary ---
Author Organization [facility] Address [address] [place] [address] Care Team Providers Care Paedodontist Name Role Phone Farnaz Kline MD Primary Care Provider [phone] Encounter Details Date Type Department Care Team (Late st Contact Info) Description 08/08/2022 Lab Requisition [facility] Pathology & Laboratory Medicine - [facility] [address] [place] [address] Outr Resulting Lab, Provider Social History Tobacco [...] Procedure Name Priority Date/Time Associated Diagnosis Comments HIV 1/2 ANTIGEN AND ANTIBODY, 4TH GENERATION Routine 08/07/2022 7:42 EST documented in this encounter Results * HIV 1/2 ANTIGEN AND ANTIBODY, 4TH GENERATION (08/07/2022 7:42 EST) HIV 1 and 2 Antibody/p24 Antigen, 4th Generation Negative Negative 08/10/2022 11:21 EST [facility] Comment:If acute HIV-1 infec tion is suspected in a high risk patient, submit plasma specimen for HIV-1 RNA quantitation test. Blood VENOUS BLOOD / Unknown 08/07/2022 7:42 EST 08/09/2022 16:51 EST Narrative [facility] - 08/10/2022 11:21 EST Fourth Generation assay performed on the Siemens Centaur XPT. Provider Outr Resulting Lab IMMUNOLOGY A ND SEROLOGY ORDERABLES Performing Organization Address City/State/[facility] Co de Phone Number [facility] [address] [place] [address] documented in this encounter Visit Diagnoses Not on filedocumented in this encounter Care Teams Paedodontist Relationship Specialty Start Date End Date Farnaz Kline MD [address] [place] [phone] PCP - General 08/16/09 documented as of this encounter
--- OUTSIDE RECORDS SUMMARY | 2024-01-24 15:46 | XMS_ITS | Encounter Summary ---
Author Organization [facility] Address [address] [place] [address] Care Team Providers Care Senior Executive Compensation Analyst Name Role Phone Farnaz Kline MD Primary Care Provider [phone] Encounter Details Date Type Department Care Team (Late st Contact Info) Description 12/20/2000 Results Only [facility] conversion [address] [place] [address] Joaquín Bourgeois, MANINDER [address] [place] [phone] Social History Tobacco Use Types Packs/Day [...] Priority Date/Time Associated Diagnosis Comments CYTOPATHOLOGY Routine 12/20/2000 0:00 EDT documented in this encounter Results * CYTOPATHOLOGY (12/20/2000 0:00 EDT) Pathology Report: CYTOPATHOLOGY REPORT Reports generated via electronic interface contain original data; however they are lacking the format of the original report. Caution should be taken when reading/interpreti ng unformatted reports. Name: ? JOCELYN DAVIS ? Accession #: ? [id number] : ? 1970 (Age: 30) ??F ?Collect Date: ? 12/20/2000 Location: ? [facility] ? Receive Date: ? 12/22/2000 Provider: ?JOAQUÍN BOURGEOIS MECHANIC SENIOR Copy to: ? Specimen/Source: ?Conventional Pap Test, Cervix/Endocervix Last Menstrual Period: ? 11/25/00 Hormonal/Contracep tive Status: ? Control Pills: Triphasil Infection History: ? Chlamydia: age 17 ? SPECIMEN ADEQUACY ? Satisfactory for evaluation. GENERAL CATEGORIZATION ? Within Normal Limits ? Document reviewed and electronically signed by: ? Kaela Zhang, ??CT(ASCP) ? Report Date: ??12/22/2000 11:44 End of Report [facility] 12/20/2000 12/22/2000 Joaquín Bourgeois MECHANIC SENIOR PATHOLOGY ORDERABLES [facility] [address] [place] [address] documented in this encounter Visit Diagnoses Not on filedocumented in this encounter Care Teams Senior Executive Compensation Analyst Relationship Specialty Start Date End Date Farnaz Kline MD [address] [place] [phone] PCP - General 08/16/09 documented as of this encounter
--- OUTSIDE RECORDS SUMMARY | 2024-01-24 15:46 | XMS_ITS | Encounter Summary ---
[place] [address] Care Team Providers Care Leather Currier Name Role Phone Farnaz Kline MD Primary Care Provider [phone] Encounter Details Date Type Department Care Team (Late st Contact Info) Description 01/30/2019 Refill Dermatology at [address] [phone] Brianna Holm LPN Social History Tobacco Use [...] PM EST Office Visit Dermatology at [address] [phone] Rony Valenzuela MD [address] [facility] DER[facility] [place], [place] [phone] Scheduled Procedures Name Priority Associated Diagnoses Date/Ti me NERVE BLOCK, OTHER PERIPHERA L NERVE OR BRANCH (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
--- OUTSIDE RECORDS SUMMARY | 2024-01-24 15:46 | XMS_ITS | Encounter Summary ---
Author Organization [facility] Address [address] [place] [address] Care Team Providers Care Business Development Executive Name Role Phone Farnaz Kline MD Primary Care Provider [phone] Encounter Details Date Type Department Care Team (Latest Contact Info) Description 09/16/2021 Lab Requisition [facility] Pathology & Laboratory Medicine - [facility] [address] [place] [address] Farnaz Kline MD [address] [phone] Encounter for gynecological examination (general) (routine) without abnormal findings Social History Tobacco Use Types Packs/Day Years [...] Procedure Name Priority Date/Time Associated Diagnosis Comments PAP TEST Today 09/15/2021 5:50 EDT HPV DNA DETECTION WITH GENOTYPING, PCR Today 09/15/2021 5:50 EDT documented in this encounter Results * HUMAN PAPILLOMAVIRUS (HPV) DETECTION-HIGH RISK TYPES (09/15/2021 5:50 EDT) HPV other High Risk types, PCR Negative Negative 09/23/2021 13:37 EDT [facility] Comment:No E6 or E7 mRNA is detected from HPV types 16,18,31,33,35,39,45,51,52,56,58,59,66, and 68 by workers compensation claims supervisor mediated amplification. Papanicolaou smear specimen (specimen) CERVIX UTERI STRUCTURE / Unknown 09/15/2021 5:50 EDT 09/19/2021 12:46 EDT Farnaz Kline MD MICROBIOLOGY - GENER AL ORDERABLES [facility] [address] [place] [address] * PAP TEST (09/15/2021 5:50 EDT) Specimens A. Cervix and/or Endocervix , ThinPrep Imaging System with Manual Evaluation 09/23/2021 13:38 T [facility] Specimen Adequacy Satisfactory for Evaluation - transformation zone component present 09/23/2021 13:38 [facility] General Categorization Negative for intraepithelial lesion or malignancy 09/23/2021 13:38 [facility] Attestation . 09/23/2021 13:38 [facility] at 1337 Clinical History See below 09/24/19 13:38 [facility] HPV The result for the Human Papillomavirus (HPV) Detection-High Risk Types is Negative. No E6 or E7 mRNA is detected from HPV types 16,18,31,33,35,39 ,45,51,52,56,58,5 9,66, and 68 by workers compensation claims supervisor mediated amplification.Milena ting was performed on specimen [id number] and was resulted on 09/23/2021 1325 EDT by NISHANT, LAB INSTRUMENT RESULTS IN 09/23/2021 13:38 T [facility] Performing Lab [facility] 09/23/2021 13:38 EDT [facility] Scanned Images 09/23/2021 13:38 EDT [facility] Papanicolaou smear specimen (specimen) CERVIX UTERI STRUCTURE / Unknown 09/15/2021 5:50 EDT 09/16/2021 9:19 EDT Farnaz Kline MD PATHOLOGY ORDERABLES Performing Organization Address City/State/[facility] Co de Phone Number [facility] [address] [place] [address] documented in this encounter Visit Diagnoses Diagnosis Encounter for gynecological examination (general) (routine) without abnormal findings documented in this encounter Care Teams Business Development Executive Relationship Specialty Start Date End Date Farnaz Kline MD [address] [place] [phone] PCP - General 08/16/09 documented as of this encounter
--- OUTSIDE RECORDS SUMMARY | 2024-01-24 15:46 | XMS_ITS | Encounter Summary ---
Author Organization [facility] Address [address] [place] [address] Care Team Providers Care Automotive Refinisher Name Role Phone Farnaz Kline MD Primary Care Provider [phone] Encounter Details Date Type Department Care Team (Late st Contact Info) Description 03/25/2004 Results Only [facility] - [facility] conversion [address] [place] [address] Aarti Medina, REPRODUCTION PRODUCTION MANAGER [address] [phone] Social History Tobacco Use Types [...] Priority Date/Time Associated Diagnosis Comments CYTOPATHOLOGY Routine 03/25/2004 0:00 EDT documented in this encounter Results * CYTOPATHOLOGY (03/25/2004 0:00 EDT) Pathology Report: CYTOPATHOLOGY REPORT Reports generated via electronic interface contain original data; however they are lacking the format of the original report. Caution should be taken when reading/interpreti ng unformatted reports. Name: ? JOCELYN DAVIS ? Accession #: ? [id number] : ? 1970 (Age: 33) ??F ?Collect Date: ? 03/25/2004 Location: ? [facility] ? Receive Date: ? 03/27/2004 Provider: ?AARTI MEDINA REPRODUCTION PRODUCTION MANAGER Copy to: ? Specimen/Source: ?ThinPrep Pap Test, Cervix/Endocervix Last Menstrual Period: ? 03/20/04 Other: ? HPVA - HPV testing requested if ASC-US on the current ThinPrep Pap test. ? SPECIMEN ADEQUACY ? Satisfactory for Evaluation - transformation zone component present GENERAL CATEGORIZATION ? Negative for Intraepithelial Lesion or Malignancy ? Document reviewed and electronically signed by: ? DIMAS Viveros(ASCP) ? Report Date: ??04/02/2004 10:14 End of Report [facility] 03/25/2004 03/27/2004 Aarti Medina REPRODUCTION PRODUCTION MANAGER PATHOLOGY ORDERABLES Performing Organization Address City/State/[facility] Co de Phone Number [facility] [address] [place] [address] documented in this encounter Visit Diagnoses Not on filedocumented in this encounter Care Teams Automotive Refinisher Relationship Specialty Start Date End Date Farnaz Kline MD [address] [place] [phone] PCP - General 08/16/09 documented as of this encounter
--- OUTSIDE RECORDS SUMMARY | 2024-01-24 15:46 | XMS_ITS | Encounter Summary ---
Author Organization [facility] Address [address] [place] [address] Care Team Providers Care Rn Obgyn Name Role Phone Farnaz Kline MD Primary Care Provider [phone] Encounter Details Date Type Department Care Team (Late st Contact Info) Description 01/25/2003 Results Only [facility] - [place] conversion [address] [place] [address] Aarti Medina, REPRESENTATIVE GOVERNMENT RELATIONS [address] [phone] Social History Tobacco Use Types [...] Priority Date/Time Associated Diagnosis Comments CYTOPATHOLOGY Routine 01/25/2003 0:00 EDT documented in this encounter Results * CYTOPATHOLOGY (01/25/2003 0:00 EDT) Pathology Report: CYTOPATHOLOGY REPORT Reports generated via electronic interface contain original data; however they are lacking the format of the original report. Caution should be taken when reading/interpreti ng unformatted reports. Name: ? JOCELYN DAVIS ? Accession #: ? [id number] : ? 1970 (Age: 32) ??F ?Collect Date: ? 01/25/2003 Location: ? [facility] ? Receive Date: ? 01/29/2003 Provider: ?AARTI MEDINA REPRESENTATIVE GOVERNMENT RELATIONS Copy to: ? Specimen/Source: ?ThinPrep Pap Test, Cervix/Endocervix Last Menstrual Period: ? 01/02/03 Other: ? HPVA - HPV testing requested if ASC-US on the current ThinPrep Pap test. ? SPECIMEN ADEQUACY ? Satisfactory for Evaluation - transformation zone component present GENERAL CATEGORIZATION ? Negative for Intraepithelial Lesion or Malignancy INTERPRETATION ? Reactive cellular changes associated with inflammation present (includes repair). ? Document reviewed and electronically signed by: ? oJlie Doss MD ? Report Date: ??02/06/2003 16:11 End of Report [facility] 01/25/2003 01/29/2003 Aarti Medina REPRESENTATIVE GOVERNMENT RELATIONS PATHOLOGY ORDERABLES [facility] [address] [place] [address] documented in this encounter Visit Diagnoses Not on filedocumented in this encounter Care Teams Rn Obgyn Relationship Specialty Start Date End Date Farnaz Kline MD [address] [place] [phone] PCP - General 08/16/09 documented as of this encounter
--- OUTSIDE RECORDS SUMMARY | 2024-01-24 15:46 | XMS_ITS | Encounter Summary ---
[place] [address] Care Team Providers Care Gas Pumping Station Helper Name Role Phone Farnaz Kline MD Primary Care Provider [phone] Reason for Visit * Reason Comments Medication Refill Encounter Details Date Type Department Care Team (Late st Contact Info) Description 05/23/2011 Refill Dermatology [address] [facility] [address] [place] [address] Rony Valenzuela MD [address] [place] [address] [place] [address] Social History Tobacco Use Types Packs/Day Years Used Date Smoking Tobacco: Never Sex and Gender Information Value Date Recorded Sex Assigned at Not on file Gender Identity Not on file Sexual Orientation Not on file documented as of this encounter Plan of Treatment Upcoming Encounters Date Type Department Care Team (Late st Contact Info) Description 07/28/2024 3:15 PM EST Office Visit Dermatology at [address] [phone] Rony Valenzuela MD [address] [place] [address] [place] [address] Scheduled Procedures Name Priority Associated Diagnoses Date/Ti me NERVE BLOCK, OTHER PERIPHERA L NERVE OR BRANCH (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
--- OUTSIDE RECORDS SUMMARY | 2024-01-24 15:46 | XMS_ITS | Encounter Summary ---
[place] [address] Care Team Providers Care Supervisor [place] Name Role Phone Farnaz Kline MD Primary Care Provider [phone] Reason for Visit * Reason Comments Medication Refill Encounter Details Date Type Department Care Team (Late st Contact Info) Description 03/10/2020 Refill Dermatology at [address] [phone] Rony Valenzuela MD [address] [place] [phone] Social History Tobacco Use Types Packs/Day Years [...] 3:15 PM EST Office Visit Dermatology at [address] [phone] Rony Valenzuela MD [address] [place] [address] DERMATOLOGY [place], [place] [phone] Scheduled Procedures Name Priority Associated Diagnoses Date/Ti me NERVE BLOCK, OTHER PERIPHERA L NERVE OR BRANCH (WRVU 0.75) 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
--- OUTSIDE RECORDS SUMMARY | 2024-01-24 15:46 | XMS_ITS | Encounter Summary ---
Author Organization [facility] Address [address] [place] [address] Care Team Providers Care Business Law Teacher Name Role Phone Farnaz Kline MD Primary Care Provider [phone] Encounter Details Date Type Department Care Team (Late st Contact Info) Description 1999 Results Only [facility] [place] [facility] [address] [place] [address] Marlen Monterroso MD [address] [place] [phone] Social History Tobacco Use Types Packs/Day Years Used Date Smoking Tobacco: Never Assessed Sex and Gender Information Value Date Recorded Sex Assigned at Not on file Gender Identity Female 04/02/2023 14:55 EDT Sexual Orientation Not on file documented as of this encounter Plan of Treatment Not on file documented as of this encounter Procedures Procedure Name Priority Date/Time Associated Diagnosis Comments CYTOPATHOLOGY Routine 1999 0:00 EDT documented in this encounter Results * CYTOPATHOLOGY (1999 0:00 EDT) Pathology Report: CYTOPATHOLOGY REPORT Reports generated via electronic interface contain original data; however they are lacking the format of the original report. Caution should be taken when reading/interpreti ng unformatted reports. Name: ? JOCELYN DAVIS ? Accession #: ? [id number] : ? 1970 (Age: 29) ??F ?Collect Date: ? 1999 Location: ? [facility] ? Receive Date: ? 12/11/1999 Provider: ?MARLEN MONTERROSO GAS DESULFURIZER Copy to: ? Specimen/Source: ?Conventional Pap Test, Cervix/Endocervix Last Menstrual Period: ? 11/26/99 ? SPECIMEN ADEQUACY ? Satisfactory for evaluation. GENERAL CATEGORIZATION ? Within Normal Limits ? Document reviewed and electronically signed by: ? DIMAS Knapp(ASCP) ? Report Date: ??12/12/1999 08:54 End of Report [facility] 1999 12/11/1999 Marlen Monterroso MD PATHOLOGY ORDERABLES Performing Organization Address City/State/[facility] Co de Phone Number [facility] [address] [place] [address] documented in this encounter Visit Diagnoses Not on filedocumented in this encounter Care Teams Business Law Teacher Relationship Specialty Start Date End Date Farnaz Kilne MD [address] [place] [phone] PCP - General 08/16/09 documented as of this encounter
--- OUTSIDE RECORDS SUMMARY | 2024-01-24 15:46 | XMS_ITS | Encounter Summary ---
Author Organization [facility] Address [address] [place] [address] Care Team Providers Care Aircraft Line Assembler Name Role Phone Farnaz Kline MD Primary Care Provider [phone] Reason for Visit * Reason Comments Pain * Referral (Routine) - Receiving Office to Obtain Authorization Specialty Diagnoses / Procedures Referred By Libertad hickey Referred To Contact Orthopedic Surgery Diagnoses Plantar fascial fibromatosis Farnaz Kline MD [address] [phone] [facility] Ortho Foot And Ankle [address] [place] [address] Referral ID Status Reason Start Date Expiration Date Visits Requested Visits Authorized [id number] Receiving Office to Obtain Authorization 1 1 Encounter Details Date Type Department Care Team (Late st Contact Info) Description 04/07/2023 8:45 EDT Office Visit [facility]le [facility] - [address] [place] [address] Camille Garcia NP [address] [place] [address] Bilateral foot pain (Primary Dx); Arthritis of midfoot; Cavus foot, acquired Social History Tobacco Use Types Packs/Day Years Used Date Smoking Tobacco: Never Assessed Interpersonal Safety Answer Date Record ed Physically Hurt Never 02/04/2020 Verbally Threaten Not on file 02/04/2020 Sex and Gender Information Value Date Recorded Sex Assigned at Not on file Gender Identity Female 04/02/2023 14:55 EDT Sexual Orientation Not on file documented as of this encounter Progress Notes * Camille Garcia, DIRECTOR OF INCOME TAX - 04/07/2023 0845 EDT Diagnosis: ICD-10-CM ICD-9-CM 1. Bilateral foot pain M79.671 729.5 XR FOOT RIGHT 3 OR MORE VIEWS M79.672 XR FOOT LEFT 3 OR MORE VIEWS 2. Arthritis of midfoot M19.079 716.97 3. Cavus foot, acquired M21.6X9 736.73 Jocelyn Saravia is being seen today for Pain of the Left Foot We have been asked to see her in consultation by Dr. Kline. SUBJECTIVE: Jocelyn Saravia is a 52 y.o. female who presents for evaluation of bilateral foot pain, left greater than right. Over the last year or so she has been dealing with pain primarily in her left foot, however, her right foot bothers her at times as well. 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 She was dealing with plantar fasciitis in her left foot about 6 months ago and worked with PT for a period of time. She has been doing stretching exercises regularly for this and added some inserts into her shoes. This has more or less resolved now. She is still experiencing pain in the tops of both feet. This is most noticeable to her when she first gets up. Her feet feel really sore and stiff. She limps around for a bit and then things seem to warm up. Her feet feel a bit better once she gets moving but the pain intensifies with prolonged standing and walking as well. 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 No past medical history on file. No past surgical history on file. Social History Tobacco Use ??? Smoking status: Not on file ??? Smokeless tobacco: Not on file Substance Use Topics ??? Alcohol use: Not on file No family history on file. Current Outpatient Medications Medication Sig Dispense Refill ??? nadoloL (CORGARD) 20 mg tablet Take 1 Tablet by mouth daily. ??? omeprazole (PRILOSEC) 40 mg capsule TAKE 1 CAPSULE BY MOUTH ONCE DAILY FOR 4 TO 6 WEEKS NEEDED ??? solifenacin (VESICARE) 10 mg tablet Take 1 Tablet by mouth daily. ??? spironolactone (ALDACTONE) 100 mg tablet Take 1 Tablet by mouth daily. ??? SUMAtriptan (IMITREX) 100 mg tablet TAKE 1 TABLET BY MOUTH TWO TIMES A DAY NEEDED FOR MIGRAIN ??? valACYclovir (VALTREX) 1 gram tablet Take 1 Tablet by mouth daily. No current facility-administered medications for this visit. Allergies Allergen Reactions ??? Codeine Nausea And Vomiting ??? Sulfasalazine Hives ??? Penicillins ??? Sulfa (Sulfonamide Antibiotics) Review of Systems: Pertinent positives mentioned above. Musculoskeletal: positive as per HPI. OBJECTIVE: The patient is in no acute distress. She appears normal with appropriate mood and affect. She is alert and oriented to person, place, and time. She is a good historian. Capillary refill of both feet is normal and pedal pulses are palpable. Light touch sensation is intact in the deep peroneal, superficial peroneal, sural, saphenous and tibial nerve distributions. * Musculoskeletal: Gait: normal. Standing Alignment: arches are high, with neutral alignment of the heels and neutral alignment of the midfoot/forefoot. Hallux Exam: no deformity with good ROM, no inflammation and no tenderness. Tailors's Bunions are absent Hammertoes are absent. Overlapping Toes are absent. Range of Motion: ankles normal, subtalar joints normal Motor Strength: Dorsiflexion is normal - Plantar flexion is normal - Resisted inversion is normal -Resisted eversion is normal Areas of Swelling: Mild midfoot bilaterally Areas of Tenderness: Left- mild across TMT joints. No plantar heel pain; Right- no pain on exam today Skin exam of lower extremities: Metatarsal Callus: absent. Rash: absent. Prior workup of the patient: none Xrays obtained today: 3 weight bearing views of both feet. Independent review: no acute abnormalities appreciated. She is s/p right first metatarsal head bunionectomy. There are degenerative changes noted in the TMT joints, L>R. There are plantar calcaneal spurs noted bilaterally and enthesopathy at the insertion of the right Achilles tendon. ASSESSMENT: 1. Bilateral foot pain XR FOOT RIGHT 3 OR MORE VIEWS XR FOOT LEFT 3 OR MORE VIEWS 2. Arthritis of midfoot 3. Cavus foot, acquired Other Orders Placed This Visit Procedures ??? XR FOOT RIGHT 3 OR MORE VIEWS ??? XR FOOT LEFT 3 OR MORE VIEWS PLAN: Conservative and surgical management options for foot arthritis were discussed. She feels she wantsto continue with conservative treatment modalities at this time and reserve surgery for when the pain continues to negatively affect her quality of life. She will follow-up with one of the foot and ankle surgeons on an as needed basis should her symptoms persist or worsen despite conservative measures outlined below. Plan includes: -Activity: as tolerated -Shoe modifications: wear stiffer soled shoes to decrease motion of painful joints -Comfort: ice when inflammation present -Medications: OTC anti-inflammatories as needed with food; topical Voltaren gel discussed -Stretching: plantar fasciitis / calf and Achilles tendon stretches encouraged three times daily -Orthotics: carbon fiber inserts discussed -X-rays for next visit:none -Follow up: Return if symptoms worsen or fail to improve for consult with one of the podiatrists orfoot/ankle surgeons Patient voices understanding and agrees with the plan. Dr. Marylou MD, was on site and available for questions during this visit but was not consulted. Cc: Requesting Provider - Dr. Kline PCP - Farnaz Kline documented in this encounter Plan of Treatment Not on file documented as of this encounter Procedures Procedure Name Priority Date/Time Associated Diagnosis Comments XR FOOT RIGHT 3 OR MORE VIEWS Routine 04/07/2023 9:13 EDT Bilateral foot pain XR FOOT LEFT 3 OR MORE VIEWS [...] plantar and posterior aspects of the calcaneus. [id number] Narrative 04/09/2023 17:17 EDT EXAM/TECHNIQUE: XR FOOT [...] the plantar and posterioraspects of the calcaneus. [id number] Camille Garcia NP [facility] [...] plantar and posterior aspects of the calcaneus. [id number] Narrative 04/09/2023 17:17 EDT EXAM/TECHNIQUE: XR FOOT [...] the plantar and posterioraspects of the calcaneus. [id number] Camille Garcia NP [facility] ORDERABLES documented in this encounter Visit Diagnoses Diagnosis Bilateral foot pain- Primary Pain in limb Arthritis of midfoot Unspecified arthropathy, ankle and foot Cavus foot, acquired Cavus deformity of foot, acquired documented in this encounter Historical Medications * This list may reflect changes made after this encounter. Medication Sig Dispensed Refills Start Date End Date SUMAtriptan (IMITREX) 100 mg tablet TAKE 1 TABLET BY MOUTH TWO TIMES A DAY NEEDED FOR MIGRAIN 02/08/2023 omeprazole (PRILOSEC) 40 mg capsule TAKE 1 CAPSULE BY MOUTH ONCE DAILY FOR 4 TO 6 WEEKS NEEDED 03/29/2023 solifenacin (VESICARE) 10 mg tablet Take 1 Tablet by mouth daily. 03/11/2023 nadoloL (CORGARD) 20 mg tablet Take 1 Tablet by mouth daily. 03/29/2023 valACYclovir (VALTREX) 1 gram tablet Take 1 Tablet by mouth daily. 03/01/2023 spironolactone (ALDACTONE) 100 mg tablet Take 1 Tablet by mouth daily. 03/29/2023 added in this encounter Care Teams Aircraft Line Assembler Relationship Specialty Start Date End Date Farnaz Kline MD [address] [place] [phone] PCP - General 08/16/09 documented as of this encounter
--- OUTSIDE RECORDS SUMMARY | 2024-01-24 15:46 | XMS_ITS | Clinical Summary ---
Author Organization [facility] Address [address] [place] [address] Care Team Providers Care Pickle Solution Maker Name Role Phone Farnaz Kline MD Primary Care Provider [phone] Allergies Active Allergy Reactions Criticality Noted Date [...] Orientation Not on file Plan of Treatment Health Maintenance Due Date Last Done Comments Hepatitis B Vaccine (1 of 3 - 19+ 3-dose series) 12/09 COVID-19 Vaccine (2022-24 season) 2023 Hepatitis C Screen Completed 08/07/2022 Procedures Procedure Name Priority Date/Time Associated Diagnosis Comments HEPATITIS C AB W REFLEX TO HCV RNA BY PCR Routine 08/07/2022 7:42 EST from Last 3 Months or Most Recently Relevant to Health Maintenance Results * HEPATITIS C AB W REFLEX TO HCV RNA BY PCR (08/07/2022 7:42 EST) Hep C Antibody Negative Negative 08/10/2022 10:59 EST [facility] Blood VENOUS BLOOD / Unknown 08/07/2022 7:42 EST 08/09/2022 16:51 EST Provider Outr Resulting Lab CHEMISTRY & BLOOD GAS ORDERABLES [facility] [address] [place] [address] from Last 3 Months or Most Recently Relevant to Health Maintenance Care Teams Pickle Solution Maker Relationship Specialty Start Date End Date Farnaz Kline MD [address] [place] [phone] PCP - General 08/16/09
--- OUTSIDE RECORDS SUMMARY | 2024-01-24 15:46 | XMS_ITS | Encounter Summary ---
[place] [address] Care Team Providers Care Incident Manager Name Role Phone Farnaz Kline MD Primary Care Provider [phone] Encounter Details Date Type Department Care Team (Late st Contact Info) Description 09/13/2007 Orders Only Dermatology at [address] [phone] Rony Valenzuela MD [address] [place] [address] [place] [address] Social History Tobacco Use Types Packs/Day Years [...] 3:15 PM EST Office Visit Dermatology at [address] [phone] Rony Valenzuela MD [address] [place] [address] DERMATOLOGY [place], [place] [phone] Scheduled Procedures Name Priority Associated Diagnoses Date/Ti me NERVE BLOCK, OTHER PERIPHERA L NERVE OR BRANCH (WRVU 0.75) 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 Location: [facility] The signing pathologist has (i) examined the relevant preparation(s) for the specimen(s) and (ii) rendered or confirmed the diagnosis(es). . ?Pathology Surgical Pathology Final Report Clinical Information Specimen Submitted: A - (R) knee; Excision Clinical History: H/O atypical nevus (Guido Vasquez [id number]) positive margins now for excision Clinical Diagnosis: Atypical nevus Report to: Rony Valenzuela MD, III [facility] Dermatology [place], [place] ??[address] Gross Description Labeled/Fixativ e: ? Labeled with the patient's name, formalin. Qty/Size/Weight : ?Single, 1.5 x 0.7 x 0.3 cm. Tissue Description: ?? Ellipse of centrally nodular, crusted, vivar-brown ?skin. Sections/Proces sing: ??The specimen is inked and serially sectioned. ??The ?ends are submitted in (1); the remainder of the ?specimen submitted in (2-3). ??(T3) crh/EJR Microscopic Description Slides reviewed, microscopic description not recorded. Diagnosis Right knee, excision: ??Scar; no evidence of residual atypical nevus. ??See Comment. CR-0 09/16/07 ARNEL 09/16/07 Verified by: ? Sulaiman Norton MD ?Dermatopathol ogist ?(Electronic Signature) The attending pathologist whose signature appears on this report has reviewed all diagnostic slides and has edited the gross and/or microscopic portion of the report in rendering the final pathologic diagnosis. Comment The clinical notes pertaining to this lesion were reviewed. NATALIE DAVIDSON 09/13/2007 6:09 PM EDT Rony Valenzuela MD PATHOLOGY/CYTOLOGY [facility] documented in this encounter Visit Diagnoses Not on filedocumented in this encounter Care Teams Incident Manager Relationship Specialty Start Date End Date Farnaz Kline MD [address] [place] [address] PCP - General 05/27/10 documented as of this encounter
--- OUTSIDE RECORDS SUMMARY | 2024-01-24 15:46 | XMS_ITS | Encounter Summary ---
[place] [address] Care Team Providers Care Portal Architect Name Role Phone Farnaz Kline MD Primary Care Provider [phone] Encounter Details Date Type Department Care Team (Late st Contact Info) Description 01/06/2013 Orders Only [place] [phone] Sofy Lan, RN Varicose veins (Primary Dx) Social History Tobacco Use Types Packs/Day Years Used Date Smoking Tobacco: Never Sex and Gender Information Value Date Recorded Sex Assigned at Not on file Gender Identity Not on file Sexual Orientation Not on file documented as of this encounter Plan of Treatment Upcoming Encounters Date Type Department Care Team (Late st Contact Info) Description 07/28/2024 3:15 PM EST Office Visit Dermatology at [place] [address] [facility] [place] [phone] Rony Valenzuela MD [address] [facility] [place] [address] Scheduled Procedures Name Priority Associated Diagnoses Date/Ti me NERVE BLOCK, OTHER PERIPHERA L NERVE OR BRANCH (WRVU 0.75) Cluneal neuropathy documented as of this encounter Results * LE Unilateral Valvular Incomp Study (02/17/2013 10:20 AM EDT) VB Text Report Department: Vascular Surgery Lab Patient: [id number] (JOCELYN MARS) CPT Code: 20008 ICD-9: 454.9 Referring Physician: AARON PALACIOS Indication: ?Left varicose vein lateral thigh. ICD9 Diagnosis Code: 454.9 Findings: Left ? Reflux? Common Femoral Vein ?Competent ?? Femoral Vein ? Reflux ? Popliteal ?Competent ?? Posterior Tibial Vein ??Competent ?? GSV, Near SFJ ?Competent ?? GSV, Proximal Thigh ?Competent ?? GSV, Mid Thigh ? Competent ?? GSV, Distal Thigh ?Competent ?? SSV ?Competent ?? Interpretation: LEFT: There is isolated reflux in the mid segment of the femoral vein in the thigh (>1.0 seconds). No other incompetence noted. Unable to follow the greater saphenous vein from the knee to the ankle due size. Electronically Signed by: MEGHA RIBERA on 2013-02-17 01:25:08 PM [facility] VB Text Report End of Report [facility] 02/17/2013 10:2 0 AM EDT Aaron Palacios MD VASCULAR ORDERABLES Performing Organization Address City/State/[facility] Co de Phone Number [facility] documented in this encounter Visit Diagnoses Diagnosis Varicose veins- Primary Asymptomatic varicose veins documented in this encounter Care Teams Portal Architect Relationship Specialty Start Date End Date Farnaz Kline MD [address] [place] [address] PCP - General 05/27/10 documented as of this encounter
--- OUTSIDE RECORDS SUMMARY | 2024-01-24 15:46 | XMS_ITS | Encounter Summary ---
Author Organization [facility] [place] [address] Care Team Providers Care Blender Name Role Phone Farnaz Kline MD Primary Care Provider [phone] Reason for Visit * Reason Comments Acne Encounter Details Date Type Department Care Team (Late st Contact Info) Description 03/26/2011 9:15 AM EDT Office Visit Dermatology [address] [facility] [address] [place] [address] Rony Valenzuela MD [address] [facility] [place] [address] Acne vulgaris (Primary Dx) Social History Tobacco Use Types Packs/Day Years Used Date Smoking Tobacco: Never Sex and Gender Information Value Date Recorded Sex Assigned at Not on file Gender Identity Not on file Sexual Orientation Not on file documented as of this encounter Progress Notes * Rony Valenzuela MD - 03/26/2011 10:05 AM EDT Problems: 1. Followup acne vulgaris. 2. History of atypical nevus, right knee, 09/2007. Jocelyn follows up and is doing beautifully. As long as she takes the Spironolactone her acne is well controlled. If she misses just a few doses her acne will start to come back. Also she complains today of a new redness over the dorsal arms and forearms bilaterally. It stops a little bit above the short sleeve lissy. It is not related to sun exposure. It does not involve her face, chest, back or legs. There is no scalded or burned sensation. Her only medications are p.r.n. Imitrex and Spironolactone. The rash predates the Spironolactone. Physical examination reveals a pleasant now 40-year-old without any active acne vulgaris. Her complexion is entirely clear. She has blanchable erythema mildly present over the dorsal hands, forearms and the lower half of her arms today. Assessment & Plan: Acne vulgaris, adult, controlled on Spironolactone. a. Continue dosing 100mg one p.o. BID, #60 dispensed with five refills for the Spironolactone. b. RTC in six months for repeat check. Dorsal arm and hand erythema. a. Patient reassured about the findings. b. Don't believe that it is related to either of her two medications. c. Will continue to monitor. 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
--- OUTSIDE RECORDS SUMMARY | 2024-01-24 15:46 | XMS_ITS | Encounter Summary ---
Author Organization [facility] [place] [address] Care Team Providers Care Airplane Pilot Photogrammetry Name Role Phone Farnaz Kline MD Primary Care Provider [phone] Reason for Visit * Reason Comments Follow-up Encounter Details Date Type Department Care Team (Late st Contact Info) Description 10/10/2012 1:00 PM EDT Office Visit Dermatology [address] [place] [address] [address] [place] [address] Rony Valenzuela MD [address] [facility] [place] [address] Rosacea (Primary Dx) Social History Tobacco Use Types Packs/Day Years Used Date Smoking Tobacco: Never Sex and Gender Information Value Date Recorded Sex Assigned at Not on file Gender Identity Not on file Sexual Orientation Not on file documented as of this encounter Progress Notes * Rony Valenzuela MD - 10/10/2012 1:20 PM EDT Problem: Followup acne Jocelyn follows up and decided to try and taper down off her doxycycline and is really doing about as well off it as she was on it. I have been treating her now for some time for acne, but now she is noticing more flushing and blushing and really more rosacea-like symptoms. We have used minocycline, spironolactone, and doxycycline. She has photosensitivity with spironolactone. Physical examination today reveals no active acneiform papules, but diffuse flushing and blushing over the cheeks in a rosaceiform pattern with erythematous patches also present over the dorsal arms and forearms bilaterally. Assessment and Plan: Rosacea. a. I recommended we begin a trial of metronidazole 0.05% gel applying on a b.i.d. basis to the face after washing. b. Continue washing the face only with water, avoiding soap. c. Discussed rosacea, our ability to treat it and control it, but not really to cure it. Reassured her about the predicted course that she might expect, remaining relatively mild with more of a telangiectatic flushing/blushing-type rosacea pattern, not a papulopustular form. d. Return to the clinic for repeat check p.r.n. I stressed sun avoidance precautions, which the patient is following, and again I recommended the use of Neutrogena sunscreen SPF 30 with Helioplex. Copy: Farnaz Kline M.D. 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
--- OUTSIDE RECORDS SUMMARY | 2024-01-24 15:46 | XMS_ITS | Encounter Summary ---
Author Organization [facility] Address [address] [place] [address] Care Team Providers Care Patient Registrar Name Role Phone Farnaz Rosales MD Primary Care Provider [phone] Encounter Details Date Type Department Care Team (Late st Contact Info) Description 09/15/2017 Results Only [facility] [phone] Andrea Brown MD [facility] [facility] [address] [place] [phone] Social History Tobacco Use Types Packs/Day Years [...] Date/Time Associated Diagnosis Comments SURGICAL PATHOLOGY Routine 09/15/2017 10 :34 EDT documented in this encounter Results * SURGICAL PATHOLOGY (09/15/2017 10:34 EDT) Pathology Report: SURGICAL PATHOLOGY REPORT Reports generated via electronic interface contain original data; however they are lacking the format of the original report. Caution should be taken when reading/interpret ing unformatted reports. Name: ? JOCELYN DAVIS ? Accession #: ? [id number] ? : ? 1970 (Age: 46) ??F ? Collect Date: ? 09/15/2017 ? Location: ? [facility] ? Receive Date: ? 09/15/2017 ? Provider: ANDREA BROWN MD Copy to: FARNAZ ROSALES MD ? Final Pathologic Diagnosis: A. FALLOPIAN TUBE, RIGHT, SALPINGECTOMY: - Paratubal cysts. B. OVARY, LEFT, WEDGE BIOPSY: - Serous cystadenoma. - Follicular cysts. C. FALLOPIAN TUBE AND CYST, LEFT, SALPINGECTOMY: - Paratubal cyst. Document reviewed and electronically signed by: ERNESTINA GOINS MD Report ??Date: 09/20/2017 16:18 By the signature above, the attending physician certifies that he/she has personally conducted a gross and/or microscopic examination of the described specimens and rendered or confirmed the above diagnosis. Specimen(s) Received: A. ??Right fallopian tube B. ??Left ovary C. ??Left fallopian tube and cyst Clinical History: Left ovarian cyst; bilateral risk reduction salpingectomy Gross Description: A. ?Received in formalin labelled with proper patient identification (initials M, E) and R fallopian tube is a 4.4 cm in length x 0.4 cm in diameter fimbriated fallopian tube and a separate fragment of pink-vivar soft tissue (1.5 x 1.0 x 0.4 cm). The fallopian tube has a smooth pink-montgomery serosal surface. Sectioning reveals a patent unremarkable lumen. The specimen is entirely submitted in A1-A5. B. ?Received in formalin labelled with proper patient identification (initials M, E) and left ovary is a 5.5 x 3.5 x 3.2 cm irregular fragment of pink-vivar soft tissue and multiple separate fragments of vivar-robison soft tissue (3.0 x 2.1 x 1.0 cm). Each tissue has a smooth outer surface. Sectioning of the largest tissue reveals multiple clear fluid filled cysts (ranging up to 5.0 cm in greatest dimension). The largest cyst contains multiple vivar-white papillary excrescences (ranging up to 0.6 cm in greatest dimension). The cut surfaces of the remainder of the tissue are pink-vivar and unremarkable. No firm areas are identified. Cnc Lathe Machine Operator sections are submitted in B1-B5. C. ?Received in formalin labelled with proper patient identification (initials M, E) and left fallopian tube and cyst is a fimbriated fallopian tube (4.0 cm in length x 0.6 cm in diameter) with an attached clear fluid filled paratubal cyst (3.8 x 3.0 x 2.0 cm). The serosa of the fallopian tube is vivar-robison. Sectioning reveals a patent unremarkable lumen. Sectioning of the cyst reveals smooth vivar cut surfaces. No excrescences are identified. Cnc Lathe Machine Operator sections are submitted as follows: BLOCK HANSON C1-C3- ??entire fallopian tube, including serially sectioned fimbria C4-C5- ??sections of cyst SHA Gibson (ASCP) 09/16/2017 11:38 AM End of Report [facility] 09/15/2017 10:3 4 EDT 09/15/2017 10:34 EDT Andrea Brown MD PATHOLOGY ORDERABLES [facility] [address] [place] [address] documented in this encounter Visit Diagnoses Not on filedocumented in this encounter Care Teams Patient Registrar Relationship Specialty Start Date End Date Farnaz Rosales MD [address] [place] [phone] PCP - General 08/16/09 documented as of this encounter
--- OUTSIDE RECORDS SUMMARY | 2024-01-24 15:46 | XMS_ITS | Encounter Summary ---
Author Organization [facility] Address [address] [place] [address] Care Team Providers Care Civilian Technician Name Role Phone Farnaz Kline MD Primary Care Provider [phone] Reason for Visit * Reason Onset Date Comments Other 08/12/2022 Encounter Details Date Type Department Care Team (Late st Contact Info) Description 08/12/2022 Telephone [facility] Orthopedics & Sport Medicine [address] [place] [address] Anjana Hairston, RN [address] [facility] [address] [place], [place] [phone] Other Social History Tobacco Use Types Packs/Day Years [...] encounter Miscellaneous Notes * Telephone Encounter - Keli Benoit - 08/14/2022 0829 EST Called Jocelyn and left voice mail for her to call us back. * Telephone Encounter - Anjana Hairston RN - 08/12/2022 1523 EST Ms. Saravia called and left a voice mail requesting a call back. She has not been seen in the clinic. documented in this encounter Plan of Treatment Not on file documented as of this encounter Visit Diagnoses Not on filedocumented in this encounter Care Teams Civilian Technician Relationship Specialty Start Date End Date Farnaz Kline MD [address] [place] [phone] PCP - General 08/16/09 documented as of this encounter
--- OUTSIDE RECORDS SUMMARY | 2024-01-24 15:46 | XMS_ITS | Encounter Summary ---
Author Organization [facility] [place] [address] Care Team Providers Care Chemical Instrumentation Officer Name Role Phone Farnaz Kline MD Primary Care Provider [phone] Encounter Details Date Type Department Care Team (Late st Contact Info) Description 01/30/2019 2:45 PM EDT Office Visit Dermatology at [address] [phone] Rony Valenzuela MD [address] [facility] [place] [address] Rosacea Social History Tobacco Use Types Packs/Day Years Used Date Smoking Tobacco: Never Smokeless Tobacco: Never Sex and Gender Information Value Date Recorded Sex Assigned at Not on file Gender Identity Not on file Sexual Orientation Not on file documented as of this encounter Progress Notes * Rony Valenzuela MD - 01/30/2019 2:45 PM EDT Problem: Follow-up rosacea status post 4 weeks of nadolol Jocelyn follows up and is doing quite well. She is tolerating the nadolol 20 mg 1 p.o. twice daily without any dizziness or lightheadedness. Her facial erythema is much much better. She feels as ifit is least 70 to 80% improved. Physical examination reveals a pleasant 48-year-old woman whose diffuse mild facial erythema has just about totally cleared. She has no papules no pustules. She is doing very well Assessment plan: Rosacea number with excessive flushing or blushing reaction, now controlled with nadolol 1. The thinning that really bothers the patient even somewhat more than the facial erythema is the flushing blushing sensation/reaction. This has been stopped by the nadolol 2. She has discontinued the metronidazole and continues spironolactone. This will not change 3. Continue nadolol 20 mg 1 p.o. twice daily. Continue this for 3 months and return to clinic. Willcall in refills for the next 3 months for her. Dispense 180 of the 20 mg tablets with 0 refills 4. Blood pressure today was 112/62 5. At time of return visit will consider trying to cut her back to just once daily dosing. 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
--- OUTSIDE RECORDS SUMMARY | 2024-01-24 15:46 | XMS_ITS | Encounter Summary ---
Author Organization [facility] Address [address] [place] [address] Care Team Providers Care Agronomy Advisor Name Role Phone Farnaz Rosales MD Primary Care Provider [phone] Encounter Details Date Type Department Care Team (Late st Contact Info) Description 07/30/2016 Results Only [facility] [phone] Farnaz Rosales MD [address] [phone] Social History Tobacco Use Types Packs/Day Years Used Date Smoking Tobacco: Never Assessed Sex and Gender Information Value Date Recorded Sex Assigned at Not on file Gender Identity Female 04/02/2023 14:55 EDT Sexual Orientation Not on file documented as of this encounter Plan of Treatment Not on file documented as of this encounter Procedures Procedure Name Priority Date/Time Associated Diagnosis Comments PAP TEST- RESULT ONLY Routine 07/30/2016 0:00 EST documented in this encounter Results * PAP TEST- RESULT ONLY (07/30/2016 0:00 EST) Pathology Report: CYTOPATHOLOGY REPORT Reports generated via electronic interface contain original data; however they are lacking the format of the original report. Caution should be taken when reading/interpreti ng unformatted reports. Name: ? JOCELYN DAVIS ? Accession #: ? [id number] ? : ? 1970 (Age: 45) ??F ?Collect Date: ? 07/30/2016 ? Location: ? [facility] ? Receive Date: ? 07/31/2016 ? Provider: FARNAZ ROSALES MD Copy to: ? Final Report SPECIMEN ADEQUACY ? Satisfactory for Evaluation - transformation zone component present GENERAL CATEGORIZATION ? Negative for Intraepithelial Lesion or Malignancy INTERPRETATION ? Reactive cellular changes associated with inflammation present (includes repair). Last Menstrual Period: 06/2016 Hormonal/Contracep tive status: None Specimen/Source: ??Pap Test, Cervix, ThinPrep Imaging System with manual evaluation Document reviewed and electronically signed by: ? ERICA MOYA MD ? Report ??Date: 08/06/2016 16:08 HPV with Pap Test ? Date Ordered: ? 08/06/2016 ? Status: ?? Signed Out ?Date Complete: ? 08/07/2016 ? By: ??System Interface ? Date Reported: ? 08/07/2016 ? Interpretation RESULT: Negative for HPV. No E6 or E7 mRNA is detected from HPV types 16,18,31,33,35, 39,45,51,52,56,58, 59,66, and 68 by heatset winder operator mediated amplification. Comments Document reviewed and electronically signed by: ? System Interface ? Report date: 08/07/2016 By the signature above, the attending physician certifies that he/she has personally conducted a gross and/or microscopic examination of the described specimens and rendered or confirmed the above diagnosis. End of Report [facility] 07/30/2016 07/31/2016 Farnaz Rosales MD PATHOLOGY ORDERABLES Performing Organization Address City/State/[facility] Co de Phone Number [facility] [address] [place] [address] documented in this encounter Visit Diagnoses Not on filedocumented in this encounter Care Teams Agronomy Advisor Relationship Specialty Start Date End Date Farnaz Rosales MD [address] [place] [phone] PCP - General 08/16/09 documented as of this encounter
--- OUTSIDE RECORDS SUMMARY | 2024-01-24 15:46 | XMS_ITS | Encounter Summary ---
Author Organization [facility] Address [address] [place] [address] Care Team Providers Care Film Sound Coordinator Name Role Phone Farnaz Rosales MD Primary Care Provider [phone] Encounter Details Date Type Department Care Team (Late st Contact Info) Description 04/28/2013 Results Only [facility] Laboratory Services - [facility] ([facility]) [address] [place] [address] Farnaz Rosales MD [address] [place] [address] [place] [phone] Social History Tobacco Use Types Packs/Day [...] Diagnosis Comments PAP TEST- RESULT ONLY Routine 04/28/2013 0:00 EDT documented in this encounter Results * PAP TEST- RESULT ONLY (04/28/2013 0:00 EDT) Pathology Report: CYTOPATHOLOGY REPORT Reports generated via electronic interface contain original data; however they are lacking the format of the original report. Caution should be taken when reading/interpreti ng unformatted reports. Name: ? JOCELYN DAVIS ? Accession #: ? [id number] : ? 1970 (Age: 42) ??F ?Collect Date: ? 04/28/2013 Location: ? [facility] ? Receive Date: ? 05/01/2013 Provider: ?FARNAZ ROSALES MD Copy to: ? Specimen/Source: ?Pap Test, Cervix/Endocervix, ThinPrep Imaging System with manual evaluation Last Menstrual Period: ? 04/15 ? SPECIMEN ADEQUACY ? Satisfactory for Evaluation - transformation zone component present GENERAL CATEGORIZATION ? Negative for Intraepithelial Lesion or Malignancy ? Document reviewed and electronically signed by: ? Nathaly Birch, CT(ASCP) ? Report Date: ??05/04/2013 15:24 End of Report [facility] 04/28/2013 05/01/2013 Farnaz Rosales MD PATHOLOGY ORDERABLES [facility] [address] [place] [address] documented in this encounter Visit Diagnoses Not on filedocumented in this encounter Care Teams Film Sound Coordinator Relationship Specialty Start Date End Date Farnaz Rosales MD [address] [place] [phone] PCP - General 08/16/09 documented as of this encounter
--- OUTSIDE RECORDS SUMMARY | 2024-01-24 15:46 | XMS_ITS | Encounter Summary ---
Author Organization [facility] [place] [address] Care Team Providers Care Manufacturing Quality Engineer Name Role Phone Farnaz Kline MD Primary Care Provider [phone] Reason for Visit * Reason Comments Acne Encounter Details Date Type Department Care Team (Late st Contact Info) Description 04/26/2012 2:15 PM EDT Office Visit Dermatology [address] [facility] [address] [place] [address] Rony Valenzuela MD [address] [facility] [place] [address] Acne vulgaris (Primary Dx) Social History Tobacco Use Types Packs/Day Years Used Date Smoking Tobacco: Never Sex and Gender Information Value Date Recorded Sex Assigned at Not on file Gender Identity Not on file Sexual Orientation Not on file documented as of this encounter Progress Notes * Rony Valenzuela MD - 04/26/2012 3:39 PM EDT Problem: Followup acne vulgaris. Jocelyn follows up and has been doing better. The erythema and discoloration of the face and the dorsal forearms have lightened significantly. The doxycycline seems to be working well for her, and she is not having any real side effects or issues with it. Physical examination reveals that the patient's acne is clear. The facial erythema is down just to very faint discoloration. Assessment and Plan: 1. Acne vulgaris with history of photosensitivity to spironolactone. a. Continue doxycycline 100 mg one p.o. b.i.d. for another month, and then taper back to 100 mg one p.o. daily; #60 dispensed with five refills. b. Return to the clinic in six months for recheck. c. The patient knows to call if she has any problems or questions in the meantime. It appears that the doxycycline is working well for her, and she has been tolerating it well without any photosensitivity issues. 2. Melasma. a. Continue with 4% hydroquinone cream, applying on a b.i.d. basis. b. Return to the clinic in six months. Copy: Farnaz Urena M.D. 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
--- OUTSIDE RECORDS SUMMARY | 2024-01-24 15:46 | XMS_ITS | Encounter Summary ---
Author Organization [facility] [place] [address] Care Team Providers Care Per Assessment Nurse Name Role Phone Farnaz Kline MD Primary Care Provider [phone] Reason for Visit * Reason Comments Acne Encounter Details Date Type Department Care Team (Late st Contact Info) Description 09/24/2011 9:15 AM EDT Office Visit Dermatology [address] [facility] [address] [place] [address] Rony Valenzuela MD [address] [facility] [place] [address] Acne vulgaris (Primary Dx) Social History Tobacco Use Types Packs/Day Years Used Date Smoking Tobacco: Never Sex and Gender Information Value Date Recorded Sex Assigned at Not on file Gender Identity Not on file Sexual Orientation Not on file documented as of this encounter Progress Notes * Rony Valenzuela MD - 09/24/2011 9:45 AM EDT Problem: 1. Followup acne vulgaris. 2. History of atypical nevus, right knee, September 2007. Jocelyn follows up and is doing well. As long as she takes her spironolactone 100 mg one p.o. b.i.d., her acne is controlled. If she misses, however, just a couple of days, it starts to recur again. She reminds me that this was not a problem until she turned about 28. She has been amenorrheic since starting the spironolactone, which however also coincided with an ablation procedure of her endometrium for excessive menstrual bleeding. Dr. Urena is aware of this. The patient denies increased headaches or diuresis with her spironolactone. Physical examination reveals a pleasant 40-year-old woman whose complexion is entirely clear. She has no active acne. Assessment and Plan: Acne vulgaris, adult, controlled on spironolactone. a. Continue current dose at 100 mg one p.o. b.i.d., #60 sent with five refills. b. Return to clinic in six months for repeat check. 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
--- OUTSIDE RECORDS SUMMARY | 2024-01-24 15:46 | XMS_ITS | Encounter Summary ---
Author Organization [facility] Address [address] [place] [address] Care Team Providers Care English Composition Teacher Name Role Phone Farnaz Rosales MD Primary Care Provider [phone] Encounter Details Date Type Department Care Team (Late st Contact Info) Description 06/15/2007 Results Only [facility] [address] [place] [address] Farnaz Rosales MD [address] [facility] [place] [place] [phone] Social History Tobacco Use Types Packs/Day [...] Priority Date/Time Associated Diagnosis Comments CYTOPATHOLOGY Routine 06/15/2007 0:00 EST documented in this encounter Results * CYTOPATHOLOGY (06/15/2007 0:00 EST) Pathology Report: CYTOPATHOLOGY REPORT Reports generated via electronic interface contain original data; however they are lacking the format of the original report. Caution should be taken when reading/interpreti ng unformatted reports. Name: ? DAVIS, JOCELYN A ? Accession #: ? [id number] : ? 1970 (Age: 36) ??F ?Collect Date: ? 06/15/2007 Location: ? [facility] ? Receive Date: ? 06/16/2007 Provider: ?FARNAZ ROSALES MD Copy to: ? Specimen/Source: ?ThinPrep Pap Test, Cervix/Endocervix, processed on [employer]EX ThinPrep Imaging System, with manual evaluation Last Menstrual Period: ? 06/04/07 Other: ? HPVA - HPV testing requested if ASC-US on the current ThinPrep Pap test. ? SPECIMEN ADEQUACY ? Satisfactory for Evaluation - transformation zone component present GENERAL CATEGORIZATION ? Negative for Intraepithelial Lesion or Malignancy ? Document reviewed and electronically signed by: ? Yesi Ball, [facility](ASCP) ? Report Date: ??06/20/2007 11:32 End of Report [facility] 06/15/2007 06/16/2007 Farnaz Rosales MD PATHOLOGY ORDERABLES [facility] [address] [place] [address] documented in this encounter Visit Diagnoses Not on filedocumented in this encounter Care Teams English Composition Teacher Relationship Specialty Start Date End Date Farnaz Rosales MD [address] [place] [phone] PCP - General 2/12/10 documented as of this encounter
--- OUTSIDE RECORDS SUMMARY | 2024-01-24 15:46 | XMS_ITS | Encounter Summary ---
Author Organization [facility] Address [address] [place] [address] Care Team Providers Care Supervisor [address] Name Role Phone Unavailable Primary Care Provider Unavailabl e Encounter Details Date Type Department Care Team (Late st Contact Info) Description 08/14/2009 Orders Only [facility] Laboratory Services - [facility] ([facility]) [address] [place], [place] [id number] Kaykay Garcia MD [address] [place] [address] [place] [address] Social History Tobacco Use Types Packs/Day Years [...] Date/Time Associated Diagnosis Comments SURGICAL PATHOLOGY Routine 08/14/2009 0:00 EST documented in this encounter Results * SURGICAL PATHOLOGY (08/14/2009 0:00 EST) Pathology Report: SURGICAL PATHOLOGY REPORT ? Reports generated via electronic interface contain original data; ? however they are lacking the format of the original report. ? Caution should be taken when reading/interpreti ng unformatted reports. ? Name: ? JOCELYN DAVIS ? Accession #: ? [id number] ? : ? 1970 (Age: 38) ??F ? Collect Date: ? 08/14/2009 ? Location: ? [facility] ? Receive Date: ? 08/15/2009 ? Provider: KAYKAY GARCIA MD ? Copy to: CONNIE MD ? Final Pathologic Diagnosis: ? Endometrium, biopsy: ? 1. ?Proliferative endometrium. ? 2. ? Benign endocervical tissue. ? Document reviewed and electronically signed by: ? EMIR ROSENBAUM MD ? Report ??Date: 08/16/2009 17:03 ? By the signature above, the attending physician certifies that he/she has ? personally conducted a gross and/or microscopic examination of the described ? specimens and rendered or confirmed the above diagnosis. ? Specimen(s) Received: ? Endo bx ? Clinical History: ? Menorrhagia; LMP: 08/06/2009, BControl method vasectomy ? Gross Description: ? Received in formalin labelled Davis, Jocelyn and endometrial bx is approximately 4 cc of blood tinged mucus admixed with multiple fragments of ? vivar-pink and red-brown tissue. ??The specimen is submitted entirely as (A1) and ?? (A2). ??(ELIZABETH Tessitore)/ljn ? End of Report ? [facility] 08/14/2009 08/15/2009 8:5 5 EST Kaykay Garcia MD PATHOLOGY ORDERABLES [facility] [address] [place] [address] documented in this encounter Visit Diagnoses Not on filedocumented in this encounter
--- OUTSIDE RECORDS SUMMARY | 2024-01-24 15:46 | XMS_ITS | Encounter Summary ---
[place] [address] Care Team Providers Care Campus Monitor Name Role Phone Farnaz Kline MD Primary Care Provider [phone] Encounter Details Date Type Department Care Team (Late st Contact Info) Description 01/02/2019 Refill Dermatology at [address] [phone] Brianna Holm LPN Social History Tobacco Use [...] 3:15 PM EST Office Visit Dermatology at [address] [phone] Rony Valenzuela MD [address] [facility] DERMATOLOGY [place], [place] [id number] Scheduled Procedures Name Priority Associated Diagnoses Date/Ti me NERVE BLOCK, OTHER PERIPHERA L NERVE OR BRANCH (WRVU 0.75) 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
--- OUTSIDE RECORDS SUMMARY | 2024-01-24 15:46 | XMS_ITS | Encounter Summary ---
Author Organization [facility] Address [address] [place] [address] Care Team Providers Care Neurodiagnostic Technologist Name Role Phone Farnaz Rosales MD Primary Care Provider [phone] Encounter Details Date Type Department Care Team (Late st Contact Info) Description 09/27/2009 Results Only [facility] Laboratory Services - [facility] ([facility] [address] [place] [address] Farnaz Rosales MD [address] [place] [address] [place] [phone] Social History Tobacco Use Types Packs/Day [...] Priority Date/Time Associated Diagnosis Comments CYTOPATHOLOGY Routine 09/27/2009 0:00 EDT documented in this encounter Results * CYTOPATHOLOGY (09/27/2009 0:00 EDT) Pathology Report: CYTOPATHOLOGY REPORT ? Reports generated via electronic interface contain original data; ? however they are lacking the format of the original report. ? Caution should be taken when reading/interpreti ng unformatted reports. ? Name: ? JOCELYN DAVIS ? Accession #: ? [id number] ? : ? 1970 (Age: 38) ??F ?Collect Date: ? 09/27/2009 ? Location: ? [facility] ? Receive Date: ? 10/01/2009 ? Provider: ?FARNAZ ROSALES MD ? Copy to: ? Specimen/Source: ?Pap Test, Cervix/Endocervix, ThinPrep Imaging System ? with manual evaluation ? Last Menstrual Period: ? Treatment History: ? Miscellaneous treatment: d & C 3/18/10 ? Other: ? HPVA - HPV testing requested if ASC-US on the current ThinPrep Pap test. ? SPECIMEN ADEQUACY ? Satisfactory for Evaluation ? - transformation zone component present ? GENERAL CATEGORIZATION ? Negative for Intraepithelial Lesion or Malignancy ? Document reviewed and electronically signed by: ? Tiffanie Rushford, CT(ASCP) ? Report Date: ??10/02/2009 11:02 ? End of Report ? [facility] 09/27/2009 10/01/2009 Farnaz Rosales MD PATHOLOGY ORDERABLES [facility] [address] [place] [address] documented in this encounter Visit Diagnoses Not on filedocumented in this encounter Care Teams Neurodiagnostic Technologist Relationship Specialty Start Date End Date Farnaz Rosales MD [address] [phone] PCP - General 08/16/09 documented as of this encounter
--- OUTSIDE RECORDS SUMMARY | 2024-01-24 15:46 | XMS_ITS | Encounter Summary ---
Author Organization [facility] Address [address] [place] [address] Care Team Providers Care Portable Router Operator Name Role Phone Farnaz Kline MD Primary Care Provider [phone] Encounter Details Date Type Department Care Team (Late st Contact Info) Description 09/19/2009 Results Only [facility] Laboratory Services - [facility] ([facility]) [address] [place] [address] Kaykay Garcia MD [address] [place] [address] [place] [address] Social History Tobacco Use Types Packs/Day Years [...] Date/Time Associated Diagnosis Comments SURGICAL PATHOLOGY Routine 09/19/2009 0:00 EDT documented in this encounter Results * SURGICAL PATHOLOGY (09/19/2009 0:00 EDT) Pathology Report: SURGICAL PATHOLOGY REPORT ? Reports generated via electronic interface contain original data; ? however they are lacking the format of the original report. ? Caution should be taken when reading/interpreti ng unformatted reports. ? Name: ? JOCELYN DAVIS ? Accession #: ? [id number] ? : ? 1970 (Age: 38) ??F ? Collect Date: ? 09/19/2009 ? Location: ? [facility] ? Receive Date: ? 09/20/2009 ? Provider: KAYKAY VIKI MD ? Copy to: FARNAZ CONNIE MD ? Final Pathologic Diagnosis: ? Endometrium, curettage: ? 1. ?Proliferative endometrium with focal breakdown. ??See comment. ? 2. ? Benign lower uterine segment and endocervical tissue with acute and ? chronic cervicitis. ? 3. ? No hyperplasia identified. ? Comment: ? Credit Cashier sections of this case have been reviewed at ? intradepartmental consultation conference. ??(Dr. Prasad)/h ? Document reviewed and electronically signed by: ? JERARDO PRASAD MD ? Report ??Date: 09/23/2009 15:42 ? By the signature above, the attending physician certifies that he/she has ? personally conducted a gross and/or microscopic examination of the described ? specimens and rendered or confirmed the above diagnosis. ? Specimen(s) Received: ? Endometrial curettings ? Clinical History: ? Menorrhagia, LMP: 09/10/2009 ? Gross Description: ? Received in formalin labelled Davis, Jocelyn and endometrial ? curettings is a 4.0 x 3.0 x 1.0 cm aggregate of pink-vivar tissue fragments ? admixed with blood and mucus. ??The specimen is filtered and entirely submitted ?? as (A1) through (A4). ??(Darrell Sheridan)/cjh ? End of Report ? [facility] 09/19/2009 09/20/2009 9:2 8 EDT Kaykay Garcia MD PATHOLOGY ORDERABLES Performing Organization Address City/State/[facility] Co de Phone Number [facility] [address] [place] [address] documented in this encounter Visit Diagnoses Not on filedocumented in this encounter Care Teams Portable Router Operator Relationship Specialty Start Date End Date Farnaz Kline MD [address] [place] [phone] PCP - General 08/16/09 documented as of this encounter
--- OUTSIDE RECORDS SUMMARY | 2024-01-24 15:46 | XMS_ITS | Encounter Summary ---
Author Organization [facility] [place] [address] Care Team Providers Care Talent Advisor Name Role Phone Farnaz Kline MD Primary Care Provider [phone] Reason for Visit * Reason Comments Rosacea Encounter Details Date Type Department Care Team (Late st Contact Info) Description 05/10/2020 1:30 PM EST Office Visit Dermatology at [address] [phone] Rony Valenzuela MD [address] [place] [address] [place] [address] Rosacea Social History Tobacco Use Types Packs/Day Years Used Date Smoking Tobacco: Never Smokeless Tobacco: Never Sex and Gender Information Value Date Recorded Sex Assigned at Not on file Gender Identity Not on file Sexual Orientation Not on file documented as of this encounter Progress Notes * Rony Valenzuela MD - 05/10/2020 1:30 PM EST Problem: 1. Follow-up rosacea 2. Utilizing spironolactone 100 mg 1 p.o. daily and nadolol 20 mg 1 p.o. daily Jocelyn follows up and is now 49. She been doing well since I last saw her about a year ago. She states that the flushing and blushing of her rosacea is well controlled. The nadolol and spironolactone control her acne and rosacea. It is only rarely that she will get any significant facial erythema flushing or blushing. Physical examination reveals a nice clear complexion without significant erythema today. She has noflushing or blushing no palpable no pustules. Assessment plan: Facial erythema/patch rosacea controlled with current therapy 1. Continue current dosing of Spironolactone milligrams 1 p.o. daily which she has been getting from Dr. Kline. 2. Continue nadolol 20 mg 1 p.o. daily blood pressure today is 100/64. Will dispense #90 for a 3-month supply with 3 refills. 3. Return to clinic in a year for repeat check. 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
--- OUTSIDE RECORDS SUMMARY | 2024-01-24 15:46 | XMS_ITS | Encounter Summary ---
[place] [address] Care Team Providers Care Tile Presser Name Role Phone Farnaz Kline MD Primary Care Provider [phone] Reason for Visit * Reason Comments Acne Encounter Details Date Type Department Care Team (Late st Contact Info) Description 03/25/2012 2:00 PM EDT Office Visit Dermatology [address] [facility] [address] [place] [address] Rony Valenzuela MD [address] [facility] [place] [address] Acne vulgaris (Primary Dx); Dermatofibroma; Melasma Social History Tobacco Use Types Packs/Day Years Used Date Smoking Tobacco: Never Sex and Gender Information Value Date Recorded Sex Assigned at Not on file Gender Identity Not on file Sexual Orientation Not on file documented as of this encounter Progress Notes * Rony Valenzuela MD - 03/25/2012 2:32 PM EDT Dictated documented in this encounter Miscellaneous Notes * Miscellaneous - Benjamin San - 03/29/2012 11:02 AM EDT documented in this encounter Plan of Treatment Upcoming Encounters Date Type Department Care Team (Late st Contact Info) Description 07/28/2024 3:15 PM EST Office Visit Dermatology at [place] [address] [facility] [place] [phone] Rony Valenzuela MD [address] [facility] [place] [address] Scheduled Procedures Name Priority Associated Diagnoses Date/Ti me NERVE BLOCK, OTHER PERIPHERA L NERVE OR BRANCH (WRVU 0.75) 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
--- OUTSIDE RECORDS SUMMARY | 2024-01-24 15:46 | XMS_ITS | Encounter Summary ---
Author Organization [facility] [place] [address] Care Team Providers Care Clinical Care Coordinator Name Role Phone Farnaz Kline MD Primary Care Provider [phone] Encounter Details Date Type Department Care Team (Latest Contact Info) Description 02/17/2013 10:00 AM EDT Ancillary Appointment [place] [address] Jose Nguyen, [place] Varicose veins Social History Tobacco Use Types Packs/Day Years Used Date Smoking Tobacco: Never Sex and Gender Information Value Date Recorded Sex Assigned at Not on file Gender Identity Not on file Sexual Orientation Not on file documented as of this encounter Plan of Treatment Upcoming Encounters Date Type Department Care Team (Late st Contact Info) Description 07/28/2024 3:15 PM EST Office Visit Dermatology at [place] [address] [facility] [place] [address] Rony Valenzuela MD [address] [facility] [place] [address] Scheduled Procedures Name Priority Associated Diagnoses Date/Ti me NERVE BLOCK, OTHER PERIPHERA L NERVE OR BRANCH (WRVU 0.75) Cluneal neuropathy documented as of this encounter Procedures Procedure Name Priority Date/Time Associated Diagnosis Comments UNLATERAL VALVULAR INCOMP Routine 02/17/2013 10:20 AM EDT Varicose veins documented in this encounter Results * LE Unilateral Valvular Incomp Study (02/17/2013 10:20 AM EDT) VB Text Report Department: Vascular Surgery Lab Patient: [id number] (JOCELYN DAVIS) CPT Code: 64361 ICD-9: 454.9 Referring Physician: AARON PALACIOS Indication: [...] AM EDT Aaron Palacios MD VASCULAR ORDERABLES VASCU[facility] documented in this encounter Visit Diagnoses Diagnosis Varicose veins Asymptomatic varicose veins documented in this encounter Care Teams Clinical Care Coordinator Relationship Specialty Start Date End Date Fanraz Kline MD [address] [place] [address] PCP - General 05/27/10 documented as of this encounter
--- OUTSIDE RECORDS SUMMARY | 2024-01-24 15:46 | XMS_ITS | Encounter Summary ---
Author Organization [facility] Address [address] [place] [address] Care Team Providers Care Eye Specialist Name Role Phone Farnaz Kline MD Primary Care Provider [phone] Encounter Details Date Type Department Care Team (Late st Contact Info) Description 08/10/2021 Lab Requisition [facility] Pathology & Laboratory Medicine - [address] [address] Outr Resulting Lab, Provider Social History Tobacco [...] Comments CHLAMYDIA/N. GONORRHOEAE AMPLIFIED NUCLEIC ACID Routine 08/08/2021 12:34 EST documented in this encounter Results * CHLAMYDIA/N. GONORRHOEAE AMPLIFIED RNA (08/08/2021 12:34 EST) Neisseria gonorrhoeae Result Negative Negative 08/11/2021 13:55 EST [facility] Chlamydia trachomatis Result Negative Negative 08/11/2021 13:55 EST [facility] Swab ENTIRE VAGINA / Unknown 08/08/2021 12:34 EST 08/10/2021 16:24 EST Provider Outr Resulting Lab MICROBIOLOGY - GENERAL ORDERABLES [facility] [address] [place] [address] documented in this encounter Visit Diagnoses Not on filedocumented in this encounter Care Teams Eye Specialist Relationship Specialty Start Date End Date Farnaz Kline MD [address] [place] [id number] PCP - General 08/16/09 documented as of this encounter
[2024-01-24 18:35] LABS: Hemoglobin A1C 5.7 % (<5.7)
[2024-01-24 18:40] LABS: Anion Gap 9.1 mmol/L (3-11); BUN 18 mg/dL (7-18); CO2 24.9 mmol/L (21.0-32.0); CREATININE 0.9 mg/dL (0.55-1.02); Calcium 9.6 mg/dL (8.5-10.1); Chloride 106 mmol/L (98-107); Glucose 82 mg/dL (74-106); Potassium 4.1 mmol/L (3.5-5.1); Sodium 140 mmol/L (136-145)
== END 2024-01-24 15:44 | disposition home or self-care (01) ==
LOC: NCHCN 15:43
PROVIDERS: PCP Family Medicine; Visit Provider Family Medicine
DX: R73.03 Prediabetes (principal)
CPT/HCPCS: 80048; 83036

== ENCOUNTER 2024-10-23 16:41 | Outpatient (REF) | payer BC, SELFPAY ==
[2024-10-23 22:06] LABS: Hemoglobin A1C 5.5 % (<5.7)
[2024-10-23 22:22] LABS: ALT 23 U/L (14-59); AST 13 U/L (15-37); Alkaline Phosphatase 113 U/L (46-116); Anion Gap 5.3 mmol/L (3-11); BUN 15 mg/dL (7-18); Bilirubin, Total 0.3 mg/dL (0.2-1.0); CO2 31.7 mmol/L (21.0-32.0); Calcium 9.6 mg/dL (8.5-10.1); Chloride 106 mmol/L (98-107); Estimated GFR 66.53 (mL/min/1.73m2); Glucose 68 mg/dL (74-106); Potassium 4.3 mmol/L (3.5-5.1); Sodium 143 mmol/L (136-145); TSH (W/Ref FT4) 2.29 uIU/mL (0.36-3.74); Total Protein 7.2 g/dL (6.4-8.2); Vitamin B12 501 pg/mL (193-986)
== END 2024-10-23 16:42 | disposition home or self-care (01) ==
LOC: NCHCN 16:41
PROVIDERS: PCP Family Medicine; Visit Provider Family Medicine
DX: R73.03 Prediabetes (principal); R20.2 Paresthesia of skin; N89.8 Other specified noninflammatory disorders of vagina
CPT/HCPCS: 80053; 82607; 83036; 84443; 87480; 87510; 87660

== ENCOUNTER 2024-11-22 02:00 | Outpatient (CLI) | payer BC, SELFPAY ==
--- NOTE | 2024-11-22 15:44 | DI.MAMMO_ITS ---
Exam(s) MAMMO SCREENING EXAM: MAMMO SCREENING CLINICAL HISTORY: SCREENING,Z12.31 TECHNIQUE: Mammograms were interpreted according to the usual protocol including computer analysis w [employer] CAD system, tomosynthesis and C-view imaging. COMPARISON: 2014 through 2023 FINDINGS: The breasts are composed of scattered fibroglandular densities, Breast Density category B. No suspicious masses or suspicious microcalcifications are seen. No skin thickening or abnormal axillary lymph nodes are seen. There has been no significant change from prior exams. IMPRESSION: BI-RADS Category 1, Negative mammogram Yearly screening mammography is recommended. Breast Density - Category B, scattered fibroglandular densities. Breast density Category C or D implies that the patient has dense breast tissue. Dense breast tissue can make it harder to find cancer on a mammogram. Dense breast tissue is also associated with an incr eased risk of breast cancer. This information about the result of the mammogram report was provided to the patient to raise their awareness. Use this report when you speak with the patient about their risks for breast cancer, which includes their family history. At that time, you may recommend additional screening tests (Ultrasoun d or MRI) as these tests may add significant information. A negative radiographic report should not delay biopsy if a dominant or clinically suspicious mass is present. Up to ten percent of cancers are not identified on mammography. A negative report may reinforce clinical impression. Adenosis and dense breasts may obscure an underlying neoplasm. False positive reports average 6 to 10%. Patient will receive a letter notifying them of these results.
== END 2024-11-22 02:20 ==
LOC: DI 02:00
PROVIDERS: PCP Family Medicine; Visit Provider Family Medicine
DX: Z12.31 Encounter for screening mammogram for malignant neoplasm of breast (principal)
CPT/HCPCS: 77063; 77067